=== PATIENT | male | born 1955 | race Caucasian/White ===

== ENCOUNTER 2020-05-19 14:20 | Inpatient (IN) | payer MEDICARE, BC ==
[~2020-05-19] VITALS: Ht 185.4 cm; Wt 80.2 kg
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
[2020-05-19 17:45] VITALS: BP 157/89
[2020-05-19] MEDS ORDERED: MAGNESIUM HYDROXIDE 2,400 MG/30 ML ORAL.SUSP. PO PRN (18:30)
[2020-05-19] MEDS ORDERED: ACETAMINOPHEN 325 MG TABLET PO PRN (18:30)
[2020-05-19] MEDS ORDERED: METHYL SALICYLATE/MENTHOL TOPICAL OINTMENT 57GM TUBE. TP PRN (18:30)
[2020-05-19] MEDS ORDERED: MAG HYDROX/AL HYDROX/SIMETH 30 ML ORAL.SUSP PO PRN (18:30)
[2020-05-19] MEDS ORDERED: QUET100T4 PO (18:36)
[2020-05-19] MEDS ORDERED: DOCU-109 PO (18:36)
[2020-05-19] MEDS ORDERED: LEVE500T56 PO (18:36)
[2020-05-19] MEDS ORDERED: CARB1TAB22 PO (18:36)
[2020-05-19] MEDS ORDERED: PRAM0.255 PO (18:36)
[2020-05-19] MEDS ORDERED: MIDO5TAB4 PO (18:36)
--- NOTE | 2020-05-19 20:56 | PDOC ---
Exam Note: Jason Note: Please also refer to the separate dictated note~for this date of service dictated separately.~Patient seen individually. Discussed the patient with Nursing staff reviewed the chart.~Reviewed interim history and current functioning. Reviewed vital signs,~Labs/ Radiology~and current medications noted below. Continue current treatment with the changes noted in the dictated addendum note Assessment: Vital Signs/I&O: Vital Signs Date Time Temp Pulse Resp B/P (MAP) Pulse Ox O2 Delivery O2 Flow Rate FiO2 05/19/20 17:45 98.0 85 18 157/89 (111) 98 Current Medications: Meds: Current Medications Medications (Trade) Dose Ordered Sig/Rik Route PRN Reason Start Time Stop Time Status Last Admin Dose Admin Acetaminophen (Tylenol) 650 mg PRN Q6HRS PRN PO MILD PAIN / TEMP > 100.3'F 05/19/20 18:30 Multi-Ingredient Ointment (Analgesic [place]) 1 king PRN QID PRN TP MUSCLE PAIN 05/19/20 18:30 Al Hydroxide/Mg Hydroxide (Mylanta Plus Xs) 15 ml PRN AFTMEALHC PRN PO DYSPEPSIA 05/19/20 18:30 Magnesium Hydroxide (Milk Of Magnesia) 2,400 mg PRN QHS PRN PO CONSTIPATION 05/19/20 18:30 Carbidopa/Levodopa (Sinemet 25/100) 4 tab TID PO 05/19/20 21:00 Docusate Sodium (Colace) 100 mg BID PO 05/19/20 21:00 Levetiracetam (Keppra) 500 mg BID PO 05/19/20 21:00 Midodrine (Proamatine) 5 mg [id number] PO 05/20/20 07:00 Pramipexole Dihydrochloride (miraPEX) 0.125 mg QHS PO 05/19/20 21:00 Quetiapine Fumarate (SEROquel) 100 mg QHS PO 05/19/20 21:00 I have reviewed the current psychotropics carefully including drug interactions. Risk benefit ratio favors no change other than as noted in my dictated progress note. Diagnosis: Problems: (1) Psychotic disorder HAYLEY GUZMAN MD May 19, 2020 20:56
[2020-05-19] MEDS ORDERED: PRAMIPEXOLE 0.25 MG TABLET. PO SCH (21:00)
[2020-05-19] MEDS: CARBIDOPA/LEVODOPA 25/100MG TABLET PO SCH (21:24)
[2020-05-19] MEDS: QUEtiapine 100 MG TABLET. PO SCH (21:24)
[2020-05-19] MEDS: levETIRAcetam 500 MG TABLET PO SCH (21:24)
[2020-05-19] MEDS: DOCUSATE SODIUM 100 MG CAPSULE PO SCH (21:24)
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
[2020-05-20] MEDS: traZODone 50 MG TABLET. PO PRN (01:03)
[2020-05-20 01:21] LABS: COLOR,URINE AMBER
[2020-05-20 01:22] LABS: BACTERIA,URINE 0 /HPF (0-FEW); BILIRUBIN,URINE SMALL (NEG); CLARITY,URINE CLEAR; GLUCOSE,URINE NEG (NEG); NITRITE,URINE NEG (NEG); RBC,URINE OCC /HPF (0-2); SQUAMOUS EPITHELIAL CELL,UR OCC /LPF; WBC,URINE OCC /HPF (0-4)
--- NOTE | 2020-05-20 02:55 | NUR ---
Nursing Note The patient was located in his room for his assessment and medication pass. The patient was able to take his medication whole and was pleasant during interactions. The patient was able to answer name and year during his assessment. The patient was restless @HS and and order was given by Dr. Garnica for Trazodone 50mg PRN may repeat x1. The patient received PRN Trazodone per PRN order.
--- NOTE | 2020-05-20 05:45 | EKG ---
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
[2020-05-20] MEDS: MIDODRINE 5 MG TABLET PO SCH ×3 (06:03→18:08)
[2020-05-20 06:24] VITALS: BP 147/79
[2020-05-20 06:52] LABS: BASO # 0.1 x10^3/uL (0.0-0.2); BASO % 1 % (0-3); EOS % 1 % (0-3); HEMATOCRIT 44.5 % (39.0-53.0); HEMOGLOBIN 15.3 g/dL (13.0-17.5); LYMPH # 1.4 x10^3/uL (1.0-4.8); LYMPH % 17 % (24-48); MEAN CORPUSCULAR HEMOGLOBIN 30 pg (25-35); MEAN CORPUSCULAR HGB CONC 34 g/dL (31-37); MEAN CORPUSCULAR VOLUME 87 fL (79-100); MONO % 12 % (0-9); NEUT # 5.9 x10^3uL (1.8-7.7); NEUT % 71 % (31-73); PLATELET COUNT 283 x10^3/uL (140-400); RED BLOOD COUNT 5.12 x10^6/uL (4.30-5.70); RED CELL DISTRIBUTION WIDTH 13.6 % (11.5-14.5); WHITE BLOOD COUNT 8.3 x10^3/uL (4.0-11.0)
[2020-05-20 07:04] LABS: ALBUMIN 3.8 g/dL (3.4-5.0); ALBUMIN/GLOBULIN RATIO 1.1 (1.0-1.7); CALCIUM 9.2 mg/dL (8.5-10.1); CREATININE 0.9 mg/dL (0.7-1.3); GFR 84.7; MAGNESIUM 2.2 mg/dL (1.8-2.4); POTASSIUM 3.7 mmol/L (3.5-5.1); TOTAL BILIRUBIN 0.7 mg/dL (0.2-1.0); TOTAL PROTEIN 7.3 g/dL (6.4-8.2)
[2020-05-20] MEDS: CARBIDOPA/LEVODOPA 25/100MG TABLET PO SCH ×2 (08:31→13:06)
[2020-05-20] MEDS: levETIRAcetam 500 MG TABLET PO SCH ×2 (08:31→19:59)
[2020-05-20] MEDS: DOCUSATE SODIUM 100 MG CAPSULE PO SCH ×2 (08:31→19:59)
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
[2020-05-20 14:25] LABS: THYROID STIM HORMONE (TSH) 1.73 uIU/mL (0.358-3.740)
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
[2020-05-20 15:42] VITALS: BP 111/66
[2020-05-20] MEDS ORDERED: CHOLECALCIFEROL (VITAMIN D3) 50,000 UNIT CAPSULE PO SCH ×2 (17:15→21:00)
--- NOTE | 2020-05-20 17:48 | NUR ---
Patient alert to self, compliant, cooperative, flat affect, slow to respond but pleasantly confused. Pt was wandering halls and into other peers rooms. pt had one encounter that was not redirectable and required a PRN zydis. Pt has been cooperative since.
[2020-05-20] MEDS: QUEtiapine 100 MG TABLET. PO SCH (20:00)
[2020-05-20] MEDS ORDERED: CARBIDOPA/LEVODOPA 25/100MG TABLET PO SCH (21:00)
[2020-05-20] MEDS ORDERED: PRAMIPEXOLE 0.25 MG TABLET. PO SCH ×2 (21:00)
--- NOTE | 2020-05-20 21:12 | PDOC ---
Exam Note: Jason Note: Please also refer to the separate dictated note~for this date of service dictated separately.~Patient seen individually. Discussed the patient with Nursing staff reviewed the chart.~Reviewed interim history and current functioning. Reviewed vital signs,~Labs/ Radiology~and current medications noted below. Continue current treatment with the changes noted in the dictated addendum note Assessment: Vital Signs/I&O: Vital Signs Date Time Temp Pulse Resp B/P (MAP) Pulse Ox O2 Delivery O2 Flow Rate FiO2 05/20/20 18:08 51 111/66 05/20/20 15:42 97.4 16 98 05/20/20 06:24 Room Air I & O 05/19/20 05/19/20 05/20/20 15:00 23:00 07:00 Intake Total 240 ml 240 ml Balance 240 ml 240 ml Labs: Laboratory Tests Test 05/20/20 00:54 05/20/20 06:40 Urine Collection Type Unknown Urine Color [place] Urine Clarity Clear Urine pH 6.0 Urine Specific Chama >=1.030 Urine Protein 30 mg/dl (NEG-TRACE) Urine Glucose (UA) Neg mg/dL (NEG) Urine Ketones (Stick) 40 mg/dL (NEG) Urine Blood Neg (NEG) Urine Nitrite Neg (NEG) Urine Bilirubin Small (NEG) Urine Urobilinogen Dipstick 1.0 mg/dL (0.2 mg/dL) Urine Leukocyte Esterase Neg (NEG) Urine RBC Occ /HPF (0-2) Urine WBC Occ /HPF (0-4) Urine Squamous Epithelial Cells Occ /LPF Urine Bacteria 0 /HPF (0-FEW) White Blood Count 8.3 x10^3/uL (4.0-11.0) Red Blood Count 5.12 x10^6/uL (4.30-5.70) Hemoglobin 15.3 g/dL (13.0-17.5) Hematocrit 44.5 % (39.0-53.0) Mean Corpuscular Volume 87 fL (79-100) Mean Corpuscular Hemoglobin 30 pg (25-35) Mean Corpuscular Hemoglobin Concent 34 g/dL (31-37) Red Cell Distribution Width 13.6 % (11.5-14.5) Platelet Count 283 x10^3/uL (140-400) Neutrophils (%) (Auto) 71 % (31-73) Lymphocytes (%) (Auto) 17 % (24-48) L Monocytes (%) (Auto) 12 % (0-9) H Eosinophils (%) (Auto) 1 % (0-3) Basophils (%) (Auto) 1 % (0-3) Neutrophils # (Auto) 5.9 x10^3uL (1.8-7.7) Lymphocytes # (Auto) 1.4 x10^3/uL (1.0-4.8) Monocytes # (Auto) 1.0 x10^3/uL (0.0-1.1) Eosinophils # (Auto) 0.0 x10^3/uL (0.0-0.7) Basophils # (Auto) 0.1 x10^3/uL (0.0-0.2) D-Dimer (Sera) 0.28 mg/L (0.00-0.50) Sodium Level 141 mmol/L (136-145) Potassium Level 3.7 mmol/L (3.5-5.1) Chloride Level 105 mmol/L (98-107) Carbon Dioxide Level 28 mmol/L (21-32) Anion Gap 8 (6-14) Blood Urea Nitrogen 10 mg/dL (8-26) Creatinine 0.9 mg/dL (0.7-1.3) Estimated GFR (Cockcroft-Gault) 84.7 BUN/Creatinine Ratio 11 (6-20) Glucose Level 93 mg/dL (70-99) Calcium Level 9.2 mg/dL (8.5-10.1) Magnesium Level 2.2 mg/dL (1.8-2.4) Iron Level 95 ug/dL (65-175) Total Iron Binding Capacity 259 ug/dL (250-450) Iron Saturation 37 % (15-34) H Total Bilirubin 0.7 mg/dL (0.2-1.0) Aspartate Amino Transferase (AST) 14 U/L (15-37) L Alanine Aminotransferase (ALT) 14 U/L (16-63) L Alkaline Phosphatase 92 U/L (46-116) Total Protein 7.3 g/dL (6.4-8.2) Albumin 3.8 g/dL (3.4-5.0) Albumin/Globulin Ratio 1.1 (1.0-1.7) Triglycerides Level 61 mg/dL (0-150) Cholesterol Level 172 mg/dL (0-200) LDL Cholesterol, Calculated 112 mg/dL (0-100) H VLDL Cholesterol, Calculated 12 mg/dL (0-40) Non-HDL Cholesterol Calculated 124 mg/dL (0-129) HDL Cholesterol 48 mg/dL (40-60) Cholesterol/HDL Ratio 3.0 Vitamin B12 Level 267 pg/mL (247-911) 25-Hydroxy Vitamin D Total 16.5 ng/mL (30-100) L Thyroid Stimulating Hormone (TSH) 1.730 uIU/mL (0.358-3.740) Thyroxine (T4) 8.0 ug/dL (4.5-12.0) Total Triiodothyronine (TT3) 122 ng/dL (71-180) Treponema pallidum Antibody Nonreactive (Nonreactive) Current Medications: Meds: Laboratory Tests Test 05/20/20 00:54 05/20/20 06:40 Urine Collection Type Unknown Urine Color Germania Urine Clarity Clear Urine pH 6.0 Urine Specific Chama >=1.030 Urine Protein 30 mg/dl Urine Glucose (UA) Neg mg/dL Urine Ketones (Stick) 40 mg/dL Urine Blood Neg Urine Nitrite Neg Urine Bilirubin Small Urine Urobilinogen Dipstick 1.0 mg/dL Urine Leukocyte Esterase Neg Urine RBC Occ /HPF Urine WBC Occ /HPF Urine Squamous Epithelial Cells Occ /LPF Urine Bacteria 0 /HPF White Blood Count 8.3 x10^3/uL Red Blood Count 5.12 x10^6/uL Hemoglobin 15.3 g/dL Hematocrit 44.5 % Mean Corpuscular Volume 87 fL Mean Corpuscular Hemoglobin 30 pg Mean Corpuscular Hemoglobin Concent 34 g/dL Red Cell Distribution Width 13.6 % Platelet Count 283 x10^3/uL Neutrophils (%) (Auto) 71 % Lymphocytes (%) (Auto) 17 % Monocytes (%) (Auto) 12 % Eosinophils (%) (Auto) 1 % Basophils (%) (Auto) 1 % Neutrophils # (Auto) 5.9 x10^3uL Lymphocytes # (Auto) 1.4 x10^3/uL Monocytes # (Auto) 1.0 x10^3/uL Eosinophils # (Auto) 0.0 x10^3/uL Basophils # (Auto) 0.1 x10^3/uL D-Dimer (Sera) 0.28 mg/L Sodium Level 141 mmol/L Potassium Level 3.7 mmol/L Chloride Level 105 mmol/L Carbon Dioxide Level 28 mmol/L Anion Gap 8 Blood Urea Nitrogen 10 mg/dL Creatinine 0.9 mg/dL Estimated GFR (Cockcroft-Gault) 84.7 BUN/Creatinine Ratio 11 Glucose Level 93 mg/dL Calcium Level 9.2 mg/dL Magnesium Level 2.2 mg/dL Iron Level 95 ug/dL Total Iron Binding Capacity 259 ug/dL Iron Saturation 37 % Total Bilirubin 0.7 mg/dL Aspartate Amino Transf (AST/SGOT) 14 U/L Alanine Aminotransferase (ALT/SGPT) 14 U/L Alkaline Phosphatase 92 U/L Total Protein 7.3 g/dL Albumin 3.8 g/dL Albumin/Globulin Ratio 1.1 Triglycerides Level 61 mg/dL Cholesterol Level 172 mg/dL LDL Cholesterol, Calculated 112 mg/dL VLDL Cholesterol, Calculated 12 mg/dL Non-HDL Cholesterol Calculated 124 mg/dL HDL Cholesterol 48 mg/dL Cholesterol/HDL Ratio 3.0 Vitamin B12 Level 267 pg/mL 25-Hydroxy Vitamin D Total 16.5 ng/mL Thyroid Stimulating Hormone (TSH) 1.730 uIU/mL Thyroxine (T4) 8.0 ug/dL Total Triiodothyronine 122 ng/dL Treponema pallidum Antibody Nonreactive Current Medications Medications (Trade) Dose Ordered Sig/Rik Route PRN Reason Start Time Stop Time Status Last Admin Dose Admin Acetaminophen (Tylenol) 650 mg PRN Q6HRS PRN PO MILD PAIN / TEMP > 100.3'F 05/19/20 18:30 Multi-Ingredient Ointment (Analgesic [place]) 1 king PRN QID PRN TP MUSCLE PAIN 05/19/20 18:30 Al Hydroxide/Mg Hydroxide (Mylanta Plus Xs) 15 ml PRN AFTMEALHC PRN PO DYSPEPSIA 05/19/20 18:30 Magnesium Hydroxide (Milk Of Magnesia) 2,400 mg PRN QHS PRN PO CONSTIPATION 05/19/20 18:30 Carbidopa/Levodopa (Sinemet 25/100) 4 tab TID PO 05/19/20 21:00 05/20/20 18:53 DC 05/20/20 13:06 Docusate Sodium (Colace) 100 mg BID PO 05/19/20 21:00 05/20/20 19:59 Levetiracetam (Keppra) 500 mg BID PO 05/19/20 21:00 05/20/20 19:59 Midodrine (Proamatine) 5 mg [id number] PO 05/20/20 07:00 05/20/20 18:08 Pramipexole Dihydrochloride (miraPEX) 0.125 mg QHS PO 05/19/20 21:00 05/20/20 18:53 DC 05/19/20 21:24 Quetiapine Fumarate (SEROquel) 100 mg QHS PO 05/19/20 21:00 05/20/20 20:00 Olanzapine (ZyPREXA ZYDIS) 2.5 mg PRN Q2HR PRN PO PSYCHOSIS 05/20/20 01:00 05/20/20 15:15 Trazodone HCl (Desyrel) 50 mg PRN QHS PRN PO INSOMNIA 05/20/20 01:00 05/20/20 01:03 Vitamin D (Vitamin D3) 50,000 unit WEEKLY PO 05/20/20 17:15 05/20/20 17:26 DC Vitamin D (Vitamin D3) 50,000 unit WEEKLY PO 05/20/20 21:00 05/20/20 20:05 Pramipexole Dihydrochloride (miraPEX) 0.25 mg [id number] PO 05/20/20 21:00 05/20/20 18:56 DC Carbidopa/Levodopa (Sinemet 25/100) 2 tab TID PO 05/20/20 21:00 05/20/20 19:49 Pramipexole Dihydrochloride (miraPEX) 0.25 mg BID PO 05/20/20 21:00 05/20/20 20:00 Current Medications Medications (Trade) Dose Ordered Sig/Rik Route PRN Reason Start Time Stop Time Status Last Admin Dose Admin Midodrine (Proamatine) 5 mg [id number] PO 05/20/20 07:00 05/20/20 18:08 Olanzapine (ZyPREXA ZYDIS) 2.5 mg PRN Q2HR PRN PO PSYCHOSIS 05/20/20 01:00 05/20/20 15:15 Trazodone HCl (Desyrel) 50 mg PRN QHS PRN PO INSOMNIA 05/20/20 01:00 05/20/20 01:03 Vitamin D (Vitamin D3) 50,000 unit WEEKLY PO 05/20/20 21:00 05/20/20 20:05 Carbidopa/Levodopa (Sinemet 25/100) 2 tab TID PO 05/20/20 21:00 05/20/20 19:49 Pramipexole Dihydrochloride (miraPEX) 0.25 mg BID PO 05/20/20 21:00 05/20/20 20:00 I have reviewed the current psychotropics carefully including drug interactions. Risk benefit ratio favors no change other than as noted in my dictated progress note. 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
[2020-05-20] MEDS ORDERED: ACET325T9 PO (23:37)
[2020-05-20] MEDS ORDERED: METH28OI2 TP (23:37)
[2020-05-20] MEDS ORDERED: TRAZ-120 PO (23:38)
[2020-05-20] MEDS ORDERED: OLAN5TAB99 PO (23:42)
[2020-05-20] MEDS ORDERED: MAGN400O7 PO (23:49)
[2020-05-20] MEDS ORDERED: MAG30ORA2 PO (23:52)
[2020-05-20] MEDS ORDERED: CHOL500021 PO (23:54)
[2020-05-21 00:11] LABS: HEMOGLOBIN A1C 5.7 % (4.8-5.6)
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
[2020-05-21] MEDS: traZODone 50 MG TABLET. PO PRN (01:43)
[2020-05-21] MEDS: MIDODRINE 5 MG TABLET PO SCH (05:44)
[2020-05-21 06:20] VITALS: BP 132/78
--- NOTE | 2020-05-21 06:43 | NUR ---
Transition Record was faxed to follow-up provider with the following elements: Reason for admission, procedures, tests, principal diagnosis, pending studies, patient instructions, 13/11 contact information for unit, phone number to obtain pending test results, plan for follow-up care, physician follow-up, advanced directive information, and medication list with dose, duration and instructions. This information was included in the following documents: History and physical, lab results, study results, progress notes, social work planning form, DC instruction form, patient visit summary, and medication reconciliation form. Date & time record faxed: [phone] Record faxed to: [facility] Record discussed with/ [facility]
--- NOTE | 2020-05-21 07:43 | PDOC ---
Exam Note: Jason Note: This note is a late entry for 05/20/2020 covers elements not covered in my initial note. Subjective: The patient was seen face to face in the morning of 05/20/2020 for a treatment team meeting with Karine Brooks and Sandra (certified social workers in health care), Mandy Barnes, activity therapy and Lynsey BLANC. Discussed with nursing staff, reviewed the chart. The patient just slept 2-1/2 hours previous night. The patients Ema joined the treatment team meeting. We had a lengthy discussion of his history of Parkinsons and recent worsening symptoms and adjustments in his anti-parkinsonian medications with some correlation with worsening psychosis. All of his treatments were in [place]. At treatment team meeting also discussed the patients progress and rather dangerous psychotic behaviors at home when he threatened to hit his and then walked, oblivious of his surroundings. Review of Systems: No CV, , pulmonary, eye, ENT system symptoms on review. Reliability poor. Mental Status Exam: The patient is oriented to himself. I met with him individually in the evening. Insight and judgment, recent and remote memory, attention and concentration, fund of knowledge is poor consistent with his diagnosis. He gets more confused in the evening. He has a parkinsonian facial expression paucity of movements again consistent with Parkinsons. Laboratory Data: Reviewed. Impression: Major neurocognitive disorder Alzheimer vascular with delusion, depression. Anxiety disorder unspecified. Impulse control disorder unspecified. Lewy body dementia with behavioral disturbance. Plan: Continue current psychotropics. He does have a family history of bipolar disorder in his sister and father. We will adjust psychotropics as clinically indicated. Consider Clozaril or adjustment of Seroquel. Consider SSRIs. We will make decisions post-baseline assessment. Assessment: Vital Signs/I&O: Vital Signs Date Time Temp Pulse Resp B/P (MAP) Pulse Ox O2 Delivery O2 Flow Rate FiO2 05/21/20 06:20 98.1 108 20 132/78 (96) 98 Room Air I & O 05/20/20 05/20/20 05/21/20 15:00 23:00 07:00 Intake Total 720 ml 360 ml Balance 720 ml 360 ml Current Medications: Meds: Current Medications Medications (Trade) Dose Ordered Sig/Rik Route PRN Reason Start Time Stop Time Status Last Admin Dose Admin Acetaminophen (Tylenol) 650 mg PRN Q6HRS PRN PO MILD PAIN / TEMP > 100.3'F 05/19/20 18:30 05/21/20 06:58 DC Multi-Ingredient Ointment (Analgesic [place]) 1 king PRN QID PRN TP MUSCLE PAIN 05/19/20 18:30 05/21/20 06:58 DC Al Hydroxide/Mg Hydroxide (Mylanta Plus Xs) 15 ml PRN AFTMEALHC PRN PO DYSPEPSIA 05/19/20 18:30 05/21/20 06:58 DC Magnesium Hydroxide (Milk Of Magnesia) 2,400 mg PRN QHS PRN PO CONSTIPATION 05/19/20 18:30 05/21/20 06:58 DC Carbidopa/Levodopa (Sinemet 25/100) 4 tab TID PO 05/19/20 21:00 05/20/20 18:53 DC 05/20/20 13:06 Docusate Sodium (Colace) 100 mg BID PO 05/19/20 21:00 05/21/20 06:58 DC 05/20/20 19:59 Levetiracetam (Keppra) 500 mg BID PO 05/19/20 21:00 05/21/20 06:58 DC 05/20/20 19:59 Midodrine (Proamatine) 5 mg [id number] PO 05/20/20 07:00 05/21/20 06:58 DC 05/21/20 05:44 Pramipexole Dihydrochloride (miraPEX) 0.125 mg QHS PO 05/19/20 21:00 05/20/20 18:53 DC 05/19/20 21:24 Quetiapine Fumarate (SEROquel) 100 mg QHS PO 05/19/20 21:00 05/21/20 06:58 DC 05/20/20 20:00 Olanzapine (ZyPREXA ZYDIS) 2.5 mg PRN Q2HR PRN PO PSYCHOSIS 05/20/20 01:00 05/21/20 06:58 DC 05/21/20 03:15 Trazodone HCl (Desyrel) 50 mg PRN QHS PRN PO INSOMNIA 05/20/20 01:00 05/21/20 06:58 DC 05/21/20 01:43 Vitamin D (Vitamin D3) 50,000 unit WEEKLY PO 05/20/20 17:15 05/20/20 17:26 DC Vitamin D (Vitamin D3) 50,000 unit WEEKLY PO 05/20/20 21:00 05/21/20 06:58 DC 05/20/20 20:05 Pramipexole Dihydrochloride (miraPEX) 0.25 mg [id number] PO 05/20/20 21:00 05/20/20 18:56 DC Carbidopa/Levodopa (Sinemet 25/100) 2 tab TID PO 05/20/20 21:00 05/21/20 06:58 DC 05/20/20 19:49 Pramipexole Dihydrochloride (miraPEX) 0.25 mg BID PO 05/20/20 21:00 05/21/20 06:58 DC 05/20/20 20:00 Current Medications Medications (Trade) Dose Ordered Sig/Rik Route PRN Reason Start Time Stop Time Status Last Admin Dose Admin Vitamin D (Vitamin D3) 50,000 unit WEEKLY PO 05/20/20 21:00 05/21/20 06:58 DC 05/20/20 20:05 Carbidopa/Levodopa (Sinemet 25/100) 2 tab TID PO 05/20/20 21:00 05/21/20 06:58 DC 05/20/20 19:49 Pramipexole Dihydrochloride (miraPEX) 0.25 mg BID PO 05/20/20 21:00 05/21/20 06:58 DC 05/20/20 20:00 I have reviewed the current psychotropics carefully including drug interactions. Risk benefit ratio favors no change other than as noted in my dictated progress note. Diagnosis: Problems: (1) Psychotic disorder (2) Impulse control disorder, unspecified (3) Anxiety disorder, unspecified (4) Major neurocognitive disorder due to Parkinson's disease with behavioral disturbance HAYLEY GUZMAN MD May 21, 2020 07:43
--- NOTE | 2020-05-21 21:15 | PDOC ---
Exam Note: Jason Note: Please also refer to the separate dictated note~for this date of service dictated separately.~Patient seen individually. Discussed the patient with Nursing staff reviewed the chart.~Reviewed interim history and current functioning. Reviewed vital signs,~Labs/ Radiology~and current medications noted below. Continue current treatment with the changes noted in the dictated addendum note Assessment: Vital Signs/I&O: Vital Signs Date Time Temp Pulse Resp B/P (MAP) Pulse Ox O2 Delivery O2 Flow Rate FiO2 05/21/20 06:20 98.1 108 20 132/78 (96) 98 Room Air I & O 05/20/20 05/20/20 05/21/20 15:00 23:00 07:00 Intake Total 720 ml 360 ml Balance 720 ml 360 ml Current Medications: Meds: Current Medications Medications (Trade) Dose Ordered Sig/Rik Route PRN Reason Start Time Stop Time Status Last Admin Dose Admin Acetaminophen (Tylenol) 650 mg PRN Q6HRS PRN PO MILD PAIN / TEMP > 100.3'F 05/19/20 18:30 05/21/20 06:58 DC Multi-Ingredient Ointment (Analgesic [place]) 1 king PRN QID PRN TP MUSCLE PAIN 05/19/20 18:30 05/21/20 06:58 DC Al Hydroxide/Mg Hydroxide (Mylanta Plus Xs) 15 ml PRN AFTMEALHC PRN PO DYSPEPSIA 05/19/20 18:30 05/21/20 06:58 DC Magnesium Hydroxide (Milk Of Magnesia) 2,400 mg PRN QHS PRN PO CONSTIPATION 05/19/20 18:30 05/21/20 06:58 DC Carbidopa/Levodopa (Sinemet 25/100) 4 tab TID PO 05/19/20 21:00 05/20/20 18:53 DC 05/20/20 13:06 Docusate Sodium (Colace) 100 mg BID PO 05/19/20 21:00 05/21/20 06:58 DC 05/20/20 19:59 Levetiracetam (Keppra) 500 mg BID PO 05/19/20 21:00 05/21/20 06:58 DC 05/20/20 19:59 Midodrine (Proamatine) 5 mg [id number] PO 05/20/20 07:00 05/21/20 06:58 DC 05/21/20 05:44 Pramipexole Dihydrochloride (miraPEX) 0.125 mg QHS PO 05/19/20 21:00 05/20/20 18:53 DC 05/19/20 21:24 Quetiapine Fumarate (SEROquel) 100 mg QHS PO 05/19/20 21:00 05/21/20 06:58 DC 05/20/20 20:00 Olanzapine (ZyPREXA ZYDIS) 2.5 mg PRN Q2HR PRN PO PSYCHOSIS 05/20/20 01:00 05/21/20 06:58 DC 05/21/20 03:15 Trazodone HCl (Desyrel) 50 mg PRN QHS PRN PO INSOMNIA 05/20/20 01:00 05/21/20 06:58 DC 05/21/20 01:43 Vitamin D (Vitamin D3) 50,000 unit WEEKLY PO 05/20/20 17:15 05/20/20 17:26 DC Vitamin D (Vitamin D3) 50,000 unit WEEKLY PO 05/20/20 21:00 05/21/20 06:58 DC 05/20/20 20:05 Pramipexole Dihydrochloride (miraPEX) 0.25 mg [id number] PO 05/20/20 21:00 05/20/20 18:56 DC Carbidopa/Levodopa (Sinemet 25/100) 2 tab TID PO 05/20/20 21:00 05/21/20 06:58 DC 05/20/20 19:49 Pramipexole Dihydrochloride (miraPEX) 0.25 mg BID PO 05/20/20 21:00 05/21/20 06:58 DC 05/20/20 20:00 I have reviewed the current psychotropics carefully including drug interactions. Risk benefit ratio favors no change other than as noted in my dictated progress note. Diagnosis: Problems: (1) Psychotic disorder (2) Impulse control disorder, unspecified (3) Anxiety disorder, unspecified (4) Major neurocognitive disorder due to Parkinson's disease with behavioral di sturbance HAYLEY GUZMAN MD May 21, 2020 21:15
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
--- NOTE | 2020-05-23 22:25 | CONS ---
DATE OF CONSULTATION: 05/20/2020 NEUROLOGY CONSULTATION REFERRING PHYSICIAN: Jose Garnica MD REASON FOR CONSULTATION: Dementia and Parkinson's disease. HISTORY OF PRESENT ILLNESS: This is a 65-year-old right-handed male who was admitted to Ger[facility] Behavior Unit on 05/19/2020 on account of increased delusion, hallucination and agitation. The patient was evaluated in the Emergency Room at [facility] because of the worsening of the above symptoms. He was transferred from [facility]. Neuro consult was requested because of increasing symptoms of Parkinson's disease and worsening of dementia. The patient denies headaches, visual disturbances, nausea, vomiting, frequent falls, but he complains of intermittent tremor and stiffness of the lower extremities. PAST MEDICAL HISTORY: Significant for Parkinson's disease diagnosed several years ago, coronary artery disease, seizure disorder, and possible syncope. PAST SURGICAL HISTORY: Positive for pacemaker placement and appendectomy. FAMILY HISTORY: Noncontributory. SOCIAL HISTORY: The patient is . He lives with his at home. He denies smoking, alcohol drinking, or illicit drug use. CURRENT HOME MEDICATIONS: Midodrine 5 mg 3 times daily, levetiracetam 500 mg twice daily, Seroquel 100 mg at bedtime, carbidopa/levodopa 25/100 four tablets 3 times daily, Mirapex 0.125 mg at bedtime, Colace 100 mg twice daily. ALLERGIES: No known drug allergies. PHYSICAL EXAMINATION: GENERAL: A well-developed, well-nourished male, not in acute distress. VITAL SIGNS: Blood pressure 111/66, respiratory rate 16, pulse is 51, temperature 97.4, oxygen saturation 98% on room air. HEENT: Normocephalic, atraumatic, otherwise unremarkable. NECK: Supple. Negative for carotid bruit, lymphadenopathy or thyromegaly. LUNGS: Clear to A and P. CARDIOVASCULAR: Regular rate and rhythm, normal S1, S2. There is no S3, S4 or murmur. ABDOMEN: Soft. Bowel sounds positive. EXTREMITIES: Negative for cyanosis, clubbing, or pedal edema. NEUROLOGIC: Mental status: The patient is alert and oriented to himself. He is disoriented to time, place and person. Speech is somewhat fluent. There is no language dysfunction. Memory, judgment, and abstracting thinking are poor. The patient denies hallucination or delusion. CRANIAL NERVES: Visual thompson are full. The pupils are reactive to light and accommodation. Extraocular movements are intact. There is no nystagmus. There is no facial, motor, or sensory deficit. The hearing is intact bilaterally. The palate is elevated symmetrically. Sternocleidomastoid muscles are powerful bilaterally. The patient shrugs his shoulders symmetrically and protrudes his tongue in the midline without fasciculation or atrophy. MOTOR EXAMINATION: No focal muscle bulk was seen. The tone is increased in the lower extremities. Strength is 5/5 throughout. SENSORY EXAMINATION: Revealed normal pinprick, light touch, vibratory and position senses. Deep tendon reflexes were symmetric and active without pathologic responses. GAIT: The stance is steady. The patient walked, but he does not swing his arms bilaterally. The coordination is normal. LABORATORY DATA: CBC revealed white blood cells of 8.3 thousand, hemoglobin 15.3, hematocrit 44.5, platelet count 283,000. Chemistry revealed sodium is 141, potassium 3.7, chloride 105, CO2 of 28, BUN 10, creatinine 0.9, glucose 93, calcium 9.2, magnesium 2.2. Liver enzymes are normal. B12 is low at 267 and vitamin D3 is low at 15.3. Thyroid profile is normal. IMPRESSION: Longstanding history of Parkinson's disease with mild symptoms including intermittent mild tremor of the upper extremity and slightly increased rigidity in the lower extremities. The patient is on high dose of carbidopa/levodopa and low dose of Mirapex at 0.125. RECOMMENDATIONS: 1. We will adjust his carbidopa/levodopa to 25/100 two tablets t.i.d. 2. Increase Mirapex to 0.5 mg b.i.d. 3. Continue with current medical and psychiatric care. M Enrike JONES MD DR: TAMRA/stevo JOB#: [id number] / [id number]
--- NOTE | 2020-05-23 23:07 | PN ---
DATE: 05/21/2020 SUBJECTIVE: The patient denies any new medical or neurological complaints. He continues to have mild intermittent resting tremor. He denies any falls. OBJECTIVE: GENERAL: Well-developed, well-nourished male, not in acute distress. VITAL SIGNS: Temperature is 98.5, pulse is 72, oxygen saturation 99%, blood pressure 107/76. HEENT: Normocephalic, atraumatic, otherwise unremarkable. NECK: Supple. Negative for carotid bruit, lymphadenopathy or thyromegaly. LUNGS: Clear to A and P. CARDIOVASCULAR: Regular rhythm, normal S1, S2. ABDOMEN: Soft. Bowel sounds positive. EXTREMITIES: Negative for cyanosis, clubbing, pitting edema. NEUROLOGICAL EXAM: Mental Status: The patient is alert and oriented to himself. His judgment and abstract thinking are poor. The patient denies hallucination or delusion. Cranial nerves are intact. No focal motor or sensory deficit. Deep tendon reflexes were symmetric and active without pathology responses. Gait and coordination are normal; however, the patient does not swing his arms while walking. DIAGNOSTICS: Chest x-ray today revealed evidence of possible infiltration in the base of the left lung consistent with atypical pneumonia. The patient today was tested positive for coronavirus. IMPRESSION: 1. COVID-19 pneumonia. 2. Parkinson disease, seizure disorders and dementia, complicated with delusion and hallucination. RECOMMENDATIONS: Continue with current medical and psychiatric care and continue with current dose of carbidopa/levodopa and Mirapex. M Enrike JONES MD DR: TAMRA/stevo JOB#: [id number] / [id number]
== END 2020-05-21 06:58 | disposition short-term general hospital (02) | DRG 56 ==
LOC: GEROPSY 16:08
PROVIDERS: ADMIT Psychiatry & Neurology Psychiatry; ATTEND Psychiatry & Neurology Psychiatry
DX: G20 Parkinson's disease (principal); F02.81 Dementia in other diseases classified elsewhere, unspecified severity, with behavioral disturbance; U07.1 COVID-19; J12.82 Pneumonia due to coronavirus disease 2019; F01.51 Vascular dementia, unspecified severity, with behavioral disturbance; G30.9 Alzheimer's disease, unspecified; I25.10 Atherosclerotic heart disease of native coronary artery without angina pectoris; Z95.0 Presence of cardiac pacemaker; Z79.899 Other long term (current) drug therapy; F41.9 Anxiety disorder, unspecified; F32.9 Major depressive disorder, single episode, unspecified; F63.9 Impulse disorder, unspecified; G40.909 Epilepsy, unspecified, not intractable, without status epilepticus
CPT/HCPCS: 36415; 80053; 80061; 81001; 82306; 82607; 83036; 83540; 83550; 83735; 84436; 84443; 84480; 85025; 85379; 86592; 93005; U0003; 97116; 97530

== ENCOUNTER 2020-05-21 06:18 | Inpatient (IN) | payer MEDICARE, BC ==
[~2020-05-21] VITALS: Ht 185.4 cm; Wt 76.5 kg
[~2020-05-21 06:18] MED LIST: ACET325T9 PO; CARB1TAB22 PO; CHOL500021 PO; DOCU-109 PO; LEVE500T56 PO; MAG30ORA2 PO; MAGN400O7 PO; METH28OI2 TP; MIDO5TAB4 PO; OLAN5TAB99 PO; PRAM0.255 PO; QUET100T4 PO; TRAZ-120 PO
[2020-05-21 08:00] VITALS: BP 126/69
--- NOTE | 2020-05-21 10:03 | NUR ---
PATIENT IS 65 Y O MALE, ADMITTED FROM [facility] WITH COVID RESULT POSITIVE. PATIENT IS AWAKE IN A BED UPON ASSESSMENT, A/O X 1, DENIED PAIN, STATED HE IS NOT FEELING WELL. PATIENT HAS A FEVER AT 100.7, 97% ON RA. PATIENT WAS ORIENTED TO ROOM/BATHROOM. PATIENT IS CURRENTLY CALM AND QUIET UP IN A BED TRYING TO EAT BREAKFAST. WCTM.
[2020-05-21 10:45] VITALS: BP 134/83
[2020-05-21 12:43] LABS: BASO % 1 % (0-3); EOS % 1 % (0-3); HEMATOCRIT 44.6 % (39.0-53.0); HEMOGLOBIN 14.9 g/dL (13.0-17.5); LYMPH % 12 % (24-48); MEAN CORPUSCULAR HEMOGLOBIN 30 pg (25-35); MEAN CORPUSCULAR HGB CONC 33 g/dL (31-37); MEAN CORPUSCULAR VOLUME 89 fL (79-100); MONO # 0.8 x10^3/uL (0.0-1.1); MONO % 10 % (0-9); NEUT # 6.3 x10^3uL (1.8-7.7); NEUT % 77 % (31-73); PLATELET COUNT 267 x10^3/uL (140-400); RED BLOOD COUNT 5.04 x10^6/uL (4.30-5.70); RED CELL DISTRIBUTION WIDTH 13.3 % (11.5-14.5); WHITE BLOOD COUNT 8.1 x10^3/uL (4.0-11.0)
[2020-05-21 12:55] LABS: ALBUMIN 3.5 g/dL (3.4-5.0); ALBUMIN/GLOBULIN RATIO 1.1 (1.0-1.7); CALCIUM 9.1 mg/dL (8.5-10.1); CREATININE 0.8 mg/dL (0.7-1.3); POTASSIUM 3.8 mmol/L (3.5-5.1); TOTAL BILIRUBIN 0.7 mg/dL (0.2-1.0); TOTAL PROTEIN 6.8 g/dL (6.4-8.2)
[2020-05-21] MEDS ORDERED: MAG HYDROX/AL HYDROX/SIMETH 30 ML ORAL.SUSP PO PRN (13:45)
[2020-05-21] MEDS ORDERED: MAGNESIUM HYDROXIDE 2,400 MG/30 ML ORAL.SUSP. PO PRN (13:45)
[2020-05-21] MEDS ORDERED: traZODone 50 MG TABLET. PO PRN (13:45)
[2020-05-21] MEDS ORDERED: METHYL SALICYLATE/MENTHOL TOPICAL OINTMENT 57GM TUBE. TP PRN (14:00)
[2020-05-21 14:43] VITALS: BP 143/73
[2020-05-21 15:12] LABS: BILIRUBIN,URINE NEG (NEG); CLARITY,URINE CLEAR; COLOR,URINE YELLOW; GLUCOSE,URINE NEG (NEG); NITRITE,URINE NEG (NEG); RBC,URINE RARE /HPF (0-2); UROBILINOGEN,URINE 0.2 mg/dL (0.2 mg/dL)
[2020-05-21 15:13] LABS: BACTERIA,URINE 0 /HPF (0-FEW); SQUAMOUS EPITHELIAL CELL,UR OCC /LPF; WBC,URINE RARE /HPF (0-4)
[2020-05-21] MEDS: MIDODRINE 5 MG TABLET PO SCH ×2 (15:23→21:06)
[2020-05-21] MEDS: CARBIDOPA/LEVODOPA 25/100MG TABLET PO SCH ×2 (15:23→21:06)
[2020-05-21] MEDS: ACETAMINOPHEN 325 MG TABLET PO PRN (15:23)
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
--- NOTE | 2020-05-21 15:37 | RAD ---
EXAM: CHEST ONE VIEW. HISTORY: Fever, COVID-19. COMPARISON: None. FINDINGS: A frontal view of the chest is obtained. A left-sided pacemaker has its leads in the right atrium and right ventricle. There is a mild airspace infiltrate in the left base. There is no pneumothorax or pleural effusion. T he heart is not enlarged. IMPRESSION: 1. Mild left basilar infiltrates consistent with atypical pneumonia. Electronically signed by: Madeleine Duron MD (05/21/2020 3:34 PM) [id number]
[2020-05-21] MEDS ORDERED: DEXAMETHASONE SOD PHOS 10 MG/ML VIAL. IV ONE (16:15)
[2020-05-21] MEDS ORDERED: AZITHROMYCIN 250 MG TABLET. PO ONE (16:15)
--- NOTE | 2020-05-21 18:02 | NUR ---
PATIENT EXITED HIS ROOM AND STARTED TO WALK FAST ON THE HALLWAY, THIS RN AND TURNER RN SAW THE PATIENT AND ASKED IF HE NEEDS ANY HELP AND INSTRUCTED PATIENT TO RETURN TO THE PATIENTS ROOM HE SUPPOSE TO BE ON ISOLATION D/T COVID +. PATIENT REFUSED TO FOLLOW DIRECTION AND STARTED TO WALK FASTER TOWARD SNU URENA. SAP INTEGRATION ARCHITECT WAS NOTIFIED CODE TARANGO WAS INITIATED. PATIENT CLOSED THE SNU DOOR AND START RUNNING TOWARD SNU EXIT DOOR. THIS RN AND TURNER RN STARTED TO RUN AFTER THE PATIENT. PATIENT PUSHED THE EXIT DOOR , OPENED AND WENT OUTSIDE, PATIENT STARTED TO RUN TOWARD THE PARKING LOT, FELL AND SCRATCHED HIS BACK (PICTURES TAKEN). BOTH RNS APPROACHED THE PATIENT, PATIENT DENIED ANY PAIN , ONLY BURNING FEELING ON THE BACK. NURSING SAP INTEGRATION ARCHITECT BROUGHT WARM BLANKETS AND SOCKS PATIENT ELOPED BAREFOOT AND SHIRTLESS. SECURITY WAS ON THE SITE TO ASSESS THE SITUATION. PATIENT WAS RETURNED BACK TO THE ROOM 124 SAFELY VIA W/C. DR. CHUNG NOTIFIED , ORDERS OBTAINED, WILL CTM.
[2020-05-21] MEDS: NEOMY/BACITR/POLYMYXIN OINT PACKET. TP SCH ×2 (18:30→21:07)
[2020-05-21 19:51] VITALS: BP 143/89
[2020-05-21] MEDS: QUEtiapine 100 MG TABLET. PO SCH (21:06)
[2020-05-21] MEDS: DOCUSATE SODIUM 100 MG CAPSULE PO SCH (21:06)
[2020-05-21] MEDS: levETIRAcetam 500 MG TABLET PO SCH (21:06)
[2020-05-21] MEDS: PRAMIPEXOLE 0.25 MG TABLET. PO SCH (21:08)
--- NOTE | 2020-05-22 03:56 | NUR ---
Nursing note: Pt slept through much of shift. Pt did ambulate to toilet, but seemed unsteady on his feet. Stand-by or minimal assistance necessary. Pt did not require PRN trazadone or zyprexa at this time. Dressed scrapes on upper back with antibiotic cream per orders and ABD pads. Bed alarm on, bed locked and in low position, nonskid socks applied.
[2020-05-22 06:51] VITALS: BP 134/72
[2020-05-22] MEDS: MIDODRINE 5 MG TABLET PO SCH ×3 (08:48→21:11)
[2020-05-22] MEDS: LACTOBACILLUS RHAMNOSUS GG 1 CAPSULE. PO SCH ×2 (08:48→21:10)
[2020-05-22] MEDS: AZITHROMYCIN 250 MG TABLET. PO SCH (08:48)
[2020-05-22] MEDS: DOCUSATE SODIUM 100 MG CAPSULE PO SCH ×2 (08:48→21:10)
[2020-05-22] MEDS: CARBIDOPA/LEVODOPA 25/100MG TABLET PO SCH ×3 (08:49→21:12)
[2020-05-22] MEDS: levETIRAcetam 500 MG TABLET PO SCH ×2 (08:49→21:11)
[2020-05-22] MEDS: DEXAMETHASONE SOD PHOS 10 MG/ML VIAL. IVP SCH (08:49)
[2020-05-22] MEDS: NEOMY/BACITR/POLYMYXIN OINT PACKET. TP SCH ×2 (08:50→21:12)
[2020-05-22] MEDS: PRAMIPEXOLE 0.25 MG TABLET. PO SCH ×2 (08:52→21:20)
[2020-05-22 10:52] VITALS: BP 107/76
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
[2020-05-22] MEDS: OLANZapine IM 10 MG VIAL. IM PRN (15:00)
--- NOTE | 2020-05-22 15:00 | NUR ---
PT STARTED TO HAVE BEHAVIORS AROUND 1500. PT STARTED TO GET UP FROM BED AND THREATEN STAFF. PT PUSHED GENERAL PRODUCTION WORKER INTO CORNER AND TRIED TO SWING AT HER. PT WAS VERBALLY AGGRESSIVE. 5 MG OF ZYPREXA GIVEN. WILL CTM.
[2020-05-22] MEDS ORDERED: QUEtiapine 25 MG TABLET. PO SCH (15:45)
--- NOTE | 2020-05-22 16:00 | NUR ---
PT CONTINUES TO HAVE BEHAVIORS AND TRIES TO GET OUT OF BED, PT IS A FALL RISK AND ELOPEMENT RISK. CALL TO DR. GUZMAN. ORDERED SEROQUEL 12.5 MG BID. AND X 1 DOSE OF SEROQUEL. WILL CTM.
[2020-05-22] MEDS: QUEtiapine 25 MG TABLET. PO SCH ×2 (18:32→21:11)
[2020-05-22 18:47] VITALS: BP 131/64
[2020-05-22] MEDS: ACETAMINOPHEN 325 MG TABLET PO PRN (21:10)
[2020-05-22] MEDS: QUEtiapine 100 MG TABLET. PO SCH (21:10)
[2020-05-23 07:00] VITALS: BP 159/90
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
[2020-05-23] MEDS: AZITHROMYCIN 250 MG TABLET. PO SCH (07:35)
[2020-05-23] MEDS: CARBIDOPA/LEVODOPA 25/100MG TABLET PO SCH ×3 (07:35→20:31)
[2020-05-23] MEDS: LACTOBACILLUS RHAMNOSUS GG 1 CAPSULE. PO SCH ×2 (07:35→20:31)
[2020-05-23] MEDS: levETIRAcetam 500 MG TABLET PO SCH ×2 (07:35→20:30)
[2020-05-23] MEDS: DEXAMETHASONE SOD PHOS 10 MG/ML VIAL. IVP SCH (07:35)
[2020-05-23] MEDS: QUEtiapine 25 MG TABLET. PO SCH ×3 (07:36→20:32)
[2020-05-23] MEDS: NEOMY/BACITR/POLYMYXIN OINT PACKET. TP SCH ×2 (07:36→20:30)
[2020-05-23] MEDS: DOCUSATE SODIUM 100 MG CAPSULE PO SCH ×2 (07:36→20:30)
[2020-05-23] MEDS: MIDODRINE 5 MG TABLET PO SCH ×3 (07:36→20:30)
[2020-05-23] MEDS: PRAMIPEXOLE 0.25 MG TABLET. PO SCH ×2 (07:37→20:30)
[2020-05-23 08:03] LABS: BASO % 0 % (0-3); EOS % 0 % (0-3); HEMATOCRIT 43.9 % (39.0-53.0); HEMOGLOBIN 14.7 g/dL (13.0-17.5); LYMPH # 1.7 x10^3/uL (1.0-4.8); LYMPH % 12 % (24-48); MEAN CORPUSCULAR HEMOGLOBIN 30 pg (25-35); MEAN CORPUSCULAR HGB CONC 34 g/dL (31-37); MEAN CORPUSCULAR VOLUME 89 fL (79-100); MONO # 1.2 x10^3/uL (0.0-1.1); MONO % 8 % (0-9); NEUT # 11.2 x10^3uL (1.8-7.7); NEUT % 79 % (31-73); PLATELET COUNT 282 x10^3/uL (140-400); RED BLOOD COUNT 4.93 x10^6/uL (4.30-5.70); RED CELL DISTRIBUTION WIDTH 13.9 % (11.5-14.5); WHITE BLOOD COUNT 14.1 x10^3/uL (4.0-11.0)
[2020-05-23 09:48] VITALS: BP 145/93
[2020-05-23] MEDS: ENOXAPARIN 40 MG/0.4 ML SYRINGE. SQ SCH (16:10)
[2020-05-23 17:57] LABS: ALBUMIN 3.7 g/dL (3.4-5.0); ALBUMIN/GLOBULIN RATIO 1.2 (1.0-1.7); CALCIUM 9.2 mg/dL (8.5-10.1); POTASSIUM 3.4 mmol/L (3.5-5.1); TOTAL BILIRUBIN 0.4 mg/dL (0.2-1.0); TOTAL PROTEIN 6.9 g/dL (6.4-8.2)
[2020-05-23] MEDS ORDERED: MIDODRINE 5 MG TABLET PO SCH (18:00)
[2020-05-23 19:22] VITALS: BP 152/99
[2020-05-23] MEDS: traZODone 100 MG TABLET. PO PRN (20:30)
[2020-05-23] MEDS: QUEtiapine 100 MG TABLET. PO SCH (20:30)
--- NOTE | 2020-05-23 21:48 | PDOC ---
Exam Note: Jason Note: This is a late entry for 05/22/2020. Please also refer to the separate dictated note~for this date of service dictated separately. Discussed the patient with Nursing staff reviewed the chart.~Reviewed interim history and current functioning. Reviewed vital signs,~Labs/ Radiology~and current medications noted below. Continue current treatment with the changes noted in the dictated addendum note Assessment: Vital Signs/I&O: Vital Signs Date Time Temp Pulse Resp B/P (MAP) Pulse Ox O2 Delivery O2 Flow Rate FiO2 05/23/20 20:30 78 152/99 05/23/20 19:22 96.8 18 99 Room Air I & O 05/22/20 05/22/20 05/23/20 15:00 23:00 07:00 Intake Total 600 ml 440 ml 150 ml Output Total 100 ml 50 ml Balance 600 ml 340 ml 100 ml Labs: Laboratory Tests Test 05/23/20 06:40 White Blood Count 14.1 x10^3/uL (4.0-11.0) H Red Blood Count 4.93 x10^6/uL (4.30-5.70) Hemoglobin 14.7 g/dL (13.0-17.5) Hematocrit 43.9 % (39.0-53.0) Mean Corpuscular Volume 89 fL (79-100) Mean Corpuscular Hemoglobin 30 pg (25-35) Mean Corpuscular Hemoglobin Concent 34 g/dL (31-37) Red Cell Distribution Width 13.9 % (11.5-14.5) Platelet Count 282 x10^3/uL (140-400) Neutrophils (%) (Auto) 79 % (31-73) H Lymphocytes (%) (Auto) 12 % (24-48) L Monocytes (%) (Auto) 8 % (0-9) Eosinophils (%) (Auto) 0 % (0-3) Basophils (%) (Auto) 0 % (0-3) Neutrophils # (Auto) 11.2 x10^3uL (1.8-7.7) H Lymphocytes # (Auto) 1.7 x10^3/uL (1.0-4.8) Monocytes # (Auto) 1.2 x10^3/uL (0.0-1.1) H Eosinophils # (Auto) 0.0 x10^3/uL (0.0-0.7) Basophils # (Auto) 0.0 x10^3/uL (0.0-0.2) D-Dimer (Sera) 0.67 mg/L (0.00-0.50) H Sodium Level 140 mmol/L (136-145) Potassium Level 3.4 mmol/L (3.5-5.1) L Chloride Level 104 mmol/L (98-107) Carbon Dioxide Level 25 mmol/L (21-32) Anion Gap 11 (6-14) Blood Urea Nitrogen 15 mg/dL (8-26) Creatinine 1.0 mg/dL (0.7-1.3) Estimated GFR (Cockcroft-Gault) 75.0 BUN/Creatinine Ratio 15 (6-20) Glucose Level 77 mg/dL (70-99) Calcium Level 9.2 mg/dL (8.5-10.1) Total Bilirubin 0.4 mg/dL (0.2-1.0) Aspartate Amino Transferase (AST) 20 U/L (15-37) Alanine Aminotransferase (ALT) 15 U/L (16-63) L Alkaline Phosphatase 92 U/L (46-116) Total Protein 6.9 g/dL (6.4-8.2) Albumin 3.7 g/dL (3.4-5.0) Albumin/Globulin Ratio 1.2 (1.0-1.7) Current Medications: Meds: Laboratory Tests Test 05/23/20 06:40 White Blood Count 14.1 x10^3/uL Red Blood Count 4.93 x10^6/uL Hemoglobin 14.7 g/dL Hematocrit 43.9 % Mean Corpuscular Volume 89 fL Mean Corpuscular Hemoglobin 30 pg Mean Corpuscular Hemoglobin Concent 34 g/dL Red Cell Distribution Width 13.9 % Platelet Count 282 x10^3/uL Neutrophils (%) (Auto) 79 % Lymphocytes (%) (Auto) 12 % Monocytes (%) (Auto) 8 % Eosinophils (%) (Auto) 0 % Basophils (%) (Auto) 0 % Neutrophils # (Auto) 11.2 x10^3uL Lymphocytes # (Auto) 1.7 x10^3/uL Monocytes # (Auto) 1.2 x10^3/uL Eosinophils # (Auto) 0.0 x10^3/uL Basophils # (Auto) 0.0 x10^3/uL D-Dimer (Sera) 0.67 mg/L Sodium Level 140 mmol/L Potassium Level 3.4 mmol/L Chloride Level 104 mmol/L Carbon Dioxide Level 25 mmol/L Anion Gap 11 Blood Urea Nitrogen 15 mg/dL Creatinine 1.0 mg/dL Estimated GFR (Cockcroft-Gault) 75.0 BUN/Creatinine Ratio 15 Glucose Level 77 mg/dL Calcium Level 9.2 mg/dL Total Bilirubin 0.4 mg/dL Aspartate Amino Transf (AST/SGOT) 20 U/L Alanine Aminotransferase (ALT/SGPT) 15 U/L Alkaline Phosphatase 92 U/L Total Protein 6.9 g/dL Albumin 3.7 g/dL Albumin/Globulin Ratio 1.2 Current Medications Medications (Trade) Dose Ordered Sig/Rik Route PRN Reason Start Time Stop Time Status Last Admin Dose Admin Acetaminophen (Tylenol) 650 mg PRN Q6HRS PRN PO MILD PAIN / TEMP > 100.3'F 05/21/20 13:45 05/22/20 21:10 Carbidopa/Levodopa (Sinemet 25/100) 4 tab TID PO 05/21/20 14:00 05/23/20 20:31 Vitamin D (Vitamin D3) 50,000 unit WEEKLY PO 05/27/20 09:00 Docusate Sodium (Colace) 100 mg BID PO 05/21/20 21:00 05/23/20 20:30 Levetiracetam (Keppra) 500 mg BID PO 05/21/20 21:00 05/23/20 20:30 Al Hydroxide/Mg Hydroxide (Mylanta Plus Xs) 15 ml PRN AFTMEALHC PRN PO DYSPEPSIA 05/21/20 13:45 Magnesium Hydroxide (Milk Of Magnesia) 2,400 mg PRN QHS PRN PO CONSTIPATION 05/21/20 13:45 Midodrine (Proamatine) 5 mg TID PO 05/21/20 14:00 05/23/20 20:30 Olanzapine (ZyPREXA ZYDIS) 2.5 mg PRN Q2HR PRN PO PSYCHOSIS 05/21/20 13:45 05/23/20 20:32 Pramipexole Dihydrochloride (miraPEX) 0.25 mg BID PO 05/21/20 21:00 05/23/20 20:30 Quetiapine Fumarate (SEROquel) 100 mg QHS PO 05/21/20 21:00 05/23/20 20:30 Trazodone HCl (Desyrel) 50 mg PRN QHS PRN PO INSOMNIA 05/21/20 13:45 05/23/20 07:20 DC 05/22/20 21:11 Multi-Ingredient Ointment (Analgesic [place]) 1 king PRN QID PRN TP MUSCLE PAIN 05/21/20 14:00 Ceftriaxone Sodium 1 gm/ Sodium Chloride 50 ml @ 100 mls/hr Q24H IV 05/21/20 16:15 05/23/20 16:11 Azithromycin (Zithromax) 500 mg 1X ONCE PO 05/21/20 16:15 05/21/20 16:16 DC 05/21/20 16:53 Dexamethasone Sodium Phosphate (Decadron) 10 mg 1X ONCE IV 05/21/20 16:15 05/21/20 16:16 DC 05/21/20 16:53 Dexamethasone Sodium Phosphate (Decadron) 6 mg DAILY IVP 05/22/20 09:00 05/23/20 07:35 Azithromycin (Zithromax) 250 mg DAILY PO 05/22/20 09:00 05/23/20 07:35 Olanzapine (ZyPREXA IM) 5 mg PRN Q2HRS PRN IM AGITATION 05/21/20 18:00 05/22/20 15:00 Neomycin/ Polymyxin/ Bacitracin (Triple Antibiotic Ointment) 1 pkt BID TP 05/21/20 18:30 05/23/20 20:30 Lactobacillus Rhamnosus (Culturelle) 1 cap BID PO 05/22/20 09:00 05/23/20 20:31 Quetiapine Fumarate (SEROquel) 25 mg 1X PO 05/22/20 15:45 Quetiapine Fumarate (SEROquel) 25 mg TID PO 05/22/20 17:00 05/23/20 20:32 Lorazepam (Ativan Inj) 0.5 mg PRN Q2HRS PRN IVP ANXIETY / AGITATION 05/23/20 07:15 05/23/20 16:06 Trazodone HCl (Desyrel) 100 mg PRN QHS PRN PO INSOMNIA, MAY REPEAT X1 05/23/20 07:15 05/23/20 20:30 Olanzapine (ZyPREXA ZYDIS) 5 mg 1X PRN PO PSYCHOSIS 05/23/20 07:15 05/23/20 07:36 Midodrine (Proamatine) 5 mg [id number] PO 05/23/20 18:00 Cancel Enoxaparin Sodium (Lovenox 40mg Syringe) 40 mg Q24H SQ 05/23/20 16:00 05/23/20 16:10 Current Medications Medications (Trade) Dose Ordered Sig/Rik Route PRN Reason Start Time Stop Time Status Last Admin Dose Admin Lorazepam (Ativan Inj) 0.5 mg PRN Q2HRS PRN IVP ANXIETY / AGITATION 05/23/20 07:15 05/23/20 16:06 Trazodone HCl (Desyrel) 100 mg PRN QHS PRN PO INSOMNIA, MAY REPEAT X1 05/23/20 07:15 05/23/20 20:30 Olanzapine (ZyPREXA ZYDIS) 5 mg 1X PRN PO PSYCHOSIS 05/23/20 07:15 05/23/20 07:36 Enoxaparin Sodium (Lovenox 40mg Syringe) 40 mg Q24H SQ 05/23/20 16:00 05/23/20 16:10 I have reviewed the current psychotropics carefully including drug interactions. Risk benefit ratio favors no change other than as noted in my dictated progress note. Diagnosis: Problems: (1) Psychotic disorder (2) Impulse control disorder, unspecified (3) Anxiety disorder, unspecified (4) Major neurocognitive disorder due to Parkinson's disease with behavioral disturbance HAYLEY GUZMAN MD May 23, 2020 21:48
--- NOTE | 2020-05-23 21:48 | PDOC ---
Exam Note: Jason Note: This note is a late entry for 05/22/2020 covers elements not covered in my initial note. Subjective: The patient was reviewed on consult requested by Dr. Eugene on 05/22/2020 after the patient was transitioned to [facility]urgical floor from the [facility] once he tested positive for COVID- 19 on the [facility]. I was called by the nursing staff earlier in the day today as an emergency. The patient has been extremely anxious, restless, confused, threatening staff, physically aggressive. He did receive Zyprexa IM x1 per Dr. Eugene and we will initial Zyprexa 2.5 mg q.2h. p.r.n. psychosis and agitation, maximum 20 mg in 24 hours. Review of Systems: Otherwise review per nursing staff, no CV, , pulmonary, eye, ENT system symptoms on review. Mental Status Exam: The patient is oriented reasonably. As assessed by nursing staff, insight and judgment, recent and remote memory, attention and lindsay ntration, fund of knowledge is poor consistent with his diagnosis. Laboratory Data: Reviewed. 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 Anxiety disorder unspecified. Impulse control disorder unspecified. Plan: Initiate above as noted. Continue rest unchanged for now. Assessment: Vital Signs/I&O: Vital Signs Date Time Temp Pulse Resp B/P (MAP) Pulse Ox O2 Delivery O2 Flow Rate FiO2 05/23/20 20:30 78 152/99 05/23/20 19:22 96.8 18 99 Room Air I & O 05/22/20 05/22/20 05/23/20 15:00 23:00 07:00 Intake Total 600 ml 440 ml 150 ml Output Total 100 ml 50 ml Balance 600 ml 340 ml 100 ml Labs: Laboratory Tests Test 05/23/20 06:40 White Blood Count 14.1 x10^3/uL (4.0-11.0) H Red Blood Count 4.93 x10^6/uL (4.30-5.70) Hemoglobin 14.7 g/dL (13.0-17.5) Hematocrit 43.9 % (39.0-53.0) Mean Corpuscular Volume 89 fL (79-100) Mean Corpuscular Hemoglobin 30 pg (25-35) Mean Corpuscular Hemoglobin Concent 34 g/dL (31-37) Red Cell Distribution Width 13.9 % (11.5-14.5) Platelet Count 282 x10^3/uL (140-400) Neutrophils (%) (Auto) 79 % (31-73) H Lymphocytes (%) (Auto) 12 % (24-48) L Monocytes (%) (Auto) 8 % (0-9) Eosinophils (%) (Auto) 0 % (0-3) Basophils (%) (Auto) 0 % (0-3) Neutrophils # (Auto) 11.2 x10^3uL (1.8-7.7) H Lymphocytes # (Auto) 1.7 x10^3/uL (1.0-4.8) Monocytes # (Auto) 1.2 x10^3/uL (0.0-1.1) H Eosinophils # (Auto) 0.0 x10^3/uL (0.0-0.7) Basophils # (Auto) 0.0 x10^3/uL (0.0-0.2) D-Dimer (Sera) 0.67 mg/L (0.00-0.50) H Sodium Level 140 mmol/L (136-145) Potassium Level 3.4 mmol/L (3.5-5.1) L Chloride Level 104 mmol/L (98-107) Carbon Dioxide Level 25 mmol/L (21-32) Anion Gap 11 (6-14) Blood Urea Nitrogen 15 mg/dL (8-26) Creatinine 1.0 mg/dL (0.7-1.3) Estimated GFR (Cockcroft-Gault) 75.0 BUN/Creatinine Ratio 15 (6-20) Glucose Level 77 mg/dL (70-99) Calcium Level 9.2 mg/dL (8.5-10.1) Total Bilirubin 0.4 mg/dL (0.2-1.0) Aspartate Amino Transferase (AST) 20 U/L (15-37) Alanine Aminotransferase (ALT) 15 U/L (16-63) L Alkaline Phosphatase 92 U/L (46-116) Total Protein 6.9 g/dL (6.4-8.2) Albumin 3.7 g/dL (3.4-5.0) Albumin/Globulin Ratio 1.2 (1.0-1.7) Current Medications: Meds: Laboratory Tests Test 05/23/20 06:40 White Blood Count 14.1 x10^3/uL Red Blood Count 4.93 x10^6/uL Hemoglobin 14.7 g/dL Hematocrit 43.9 % Mean Corpuscular Volume 89 fL Mean Corpuscular Hemoglobin 30 pg Mean Corpuscular Hemoglobin Concent 34 g/dL Red Cell Distribution Width 13.9 % Platelet Count 282 x10^3/uL Neutrophils (%) (Auto) 79 % Lymphocytes (%) (Auto) 12 % Monocytes (%) (Auto) 8 % Eosinophils (%) (Auto) 0 % Basophils (%) (Auto) 0 % Neutrophils # (Auto) 11.2 x10^3uL Lymphocytes # (Auto) 1.7 x10^3/uL Monocytes # (Auto) 1.2 x10^3/uL Eosinophils # (Auto) 0.0 x10^3/uL Basophils # (Auto) 0.0 x10^3/uL D-Dimer (Sera) 0.67 mg/L Sodium Level 140 mmol/L Potassium Level 3.4 mmol/L Chloride Level 104 mmol/L Carbon Dioxide Level 25 mmol/L Anion Gap 11 Blood Urea Nitrogen 15 mg/dL Creatinine 1.0 mg/dL Estimated GFR (Cockcroft-Gault) 75.0 BUN/Creatinine Ratio 15 Glucose Level 77 mg/dL Calcium Level 9.2 mg/dL Total Bilirubin 0.4 mg/dL Aspartate Amino Transf (AST/SGOT) 20 U/L Alanine Aminotransferase (ALT/SGPT) 15 U/L Alkaline Phosphatase 92 U/L Total Protein 6.9 g/dL Albumin 3.7 g/dL Albumin/Globulin Ratio 1.2 Current Medications Medications (Trade) Dose Ordered Sig/Rik Route PRN Reason Start Time Stop Time Status Last Admin Dose Admin Acetaminophen (Tylenol) 650 mg PRN Q6HRS PRN PO MILD PAIN / TEMP > 100.3'F 05/21/20 13:45 05/22/20 21:10 Carbidopa/Levodopa (Sinemet 25/100) 4 tab TID PO 05/21/20 14:00 05/23/20 20:31 Vitamin D (Vitamin D3) 50,000 unit WEEKLY PO 05/27/20 09:00 Docusate Sodium (Colace) 100 mg BID PO 05/21/20 21:00 05/23/20 20:30 Levetiracetam (Keppra) 500 mg BID PO 05/21/20 21:00 05/23/20 20:30 Al Hydroxide/Mg Hydroxide (Mylanta Plus Xs) 15 ml PRN AFTMEALHC PRN PO DYSPEPSIA 05/21/20 13:45 Magnesium Hydroxide (Milk Of Magnesia) 2,400 mg PRN QHS PRN PO CONSTIPATION 05/21/20 13:45 Midodrine (Proamatine) 5 mg TID PO 05/21/20 14:00 05/23/20 20:30 Olanzapine (ZyPREXA ZYDIS) 2.5 mg PRN Q2HR PRN PO PSYCHOSIS 05/21/20 13:45 05/23/20 20:32 Pramipexole Dihydrochloride (miraPEX) 0.25 mg BID PO 05/21/20 21:00 05/23/20 20:30 Quetiapine Fumarate (SEROquel) 100 mg QHS PO 05/21/20 21:00 05/23/20 20:30 Trazodone HCl (Desyrel) 50 mg PRN QHS PRN PO INSOMNIA 05/21/20 13:45 05/23/20 07:20 DC 05/22/20 21:11 Multi-Ingredient Ointment (Analgesic [place]) 1 king PRN QID PRN TP MUSCLE PAIN 05/21/20 14:00 Ceftriaxone Sodium 1 gm/ Sodium Chloride 50 ml @ 100 mls/hr Q24H IV 05/21/20 16:15 05/23/20 16:11 Azithromycin (Zithromax) 500 mg 1X ONCE PO 05/21/20 16:15 05/21/20 16:16 DC 05/21/20 16:53 Dexamethasone Sodium Phosphate (Decadron) 10 mg 1X ONCE IV 05/21/20 16:15 05/21/20 16:16 DC 05/21/20 16:53 Dexamethasone Sodium Phosphate (Decadron) 6 mg DAILY IVP 05/22/20 09:00 05/23/20 07:35 Azithromycin (Zithromax) 250 mg DAILY PO 05/22/20 09:00 05/23/20 07:35 Olanzapine (ZyPREXA IM) 5 mg PRN Q2HRS PRN IM AGITATION 05/21/20 18:00 05/22/20 15:00 Neomycin/ Polymyxin/ Bacitracin (Triple Antibiotic Ointment) 1 pkt BID TP 05/21/20 18:30 05/23/20 20:30 Lactobacillus Rhamnosus (Culturelle) 1 cap BID PO 05/22/20 09:00 05/23/20 20:31 Quetiapine Fumarate (SEROquel) 25 mg 1X PO 05/22/20 15:45 Quetiapine Fumarate (SEROquel) 25 mg TID PO 05/22/20 17:00 05/23/20 20:32 Lorazepam (Ativan Inj) 0.5 mg PRN Q2HRS PRN IVP ANXIETY / AGITATION 05/23/20 07:15 05/23/20 16:06 Trazodone HCl (Desyrel) 100 mg PRN QHS PRN PO INSOMNIA, MAY REPEAT X1 05/23/20 07:15 05/23/20 20:30 Olanzapine (ZyPREXA ZYDIS) 5 mg 1X PRN PO PSYCHOSIS 05/23/20 07:15 05/23/20 07:36 Midodrine (Proamatine) 5 mg [id number] PO 05/23/20 18:00 Cancel Enoxaparin Sodium (Lovenox 40mg Syringe) 40 mg Q24H SQ 05/23/20 16:00 05/23/20 16:10 Current Medications Medications (Trade) Dose Ordered Sig/Rik Route PRN Reason Start Time Stop Time Status Last Admin Dose Admin Lorazepam (Ativan Inj) 0.5 mg PRN Q2HRS PRN IVP ANXIETY / AGITATION 05/23/20 07:15 05/23/20 16:06 Trazodone HCl (Desyrel) 100 mg PRN QHS PRN PO INSOMNIA, MAY REPEAT X1 05/23/20 07:15 05/23/20 20:30 Olanzapine (ZyPREXA ZYDIS) 5 mg 1X PRN PO PSYCHOSIS 05/23/20 07:15 05/23/20 07:36 Enoxaparin Sodium (Lovenox 40mg Syringe) 40 mg Q24H SQ 05/23/20 16:00 05/23/20 16:10 I have reviewed the current psychotropics carefully including drug interactions. Risk benefit ratio favors no change other than as noted in my dictated progress note. Diagnosis: Problems: (1) Psychotic disorder (2) Impulse control disorder, unspecified (3) Anxiety disorder, unspecified (4) Major neurocognitive disorder due to Parkinson's disease with behavioral disturbance HAYLEY GUZMAN MD May 23, 2020 21:48
[2020-05-23 22:26] VITALS: BP 115/66
--- NOTE | 2020-05-24 04:45 | NUR ---
Pt resting in bed with eyes closed at change of shift. Pt is alert to self only, confused and can be delusional. Pt will reach for objects in air that are not there and talk/ramble to others in room that are not there. When awake, pt is very fidgety or trying to get out of bed, unsteady on feet. Pt ate pudding twice during shift and took HS medications. Pt slept on and off during the night, longest period was about 90 mins. Pt given PRN Ativan and Zyprexa during shift for agitation. 1to1 staff at bedside.
[2020-05-24 06:22] VITALS: BP 152/88
--- NOTE | 2020-05-24 08:30 | PDOC ---
Exam Note: Jason Note: This note is a late entry for 05/23/2020 covers elements not covered in my initial note. Subjective: The patient was discussed with nursing staff, reviewed the chart. The patient remains extremely agitated, restless, psychotic, and aggressive. He remains confused. Review of Systems: Per nursing observations, no CV, , pulmonary, eye, ENT system symptoms on review. Mental Status Exam: Per description by nursing staff, the patient remains oriented to himself. Insight and judgment, recent and remote memory, attention and concentration, fund of knowledge is poor consistent with his diagnosis. Laboratory Data: Reviewed. 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 Anxiety disorder unspecified. Impulse control disorder unspecified. COVID-19 positive status. Await repeat antibody testing. Plan: Continue current psychotropics. Increase Zyprexa p.r.n. Make further adjustments as clinically indicated. Assessment: Vital Signs/I&O: Vital Signs Date Time Temp Pulse Resp B/P (MAP) Pulse Ox O2 Delivery O2 Flow Rate FiO2 05/24/20 06:22 97.6 67 18 152/88 (109) 95 Room Air I & O 05/23/20 05/23/20 05/24/20 14:59 22:59 06:59 Intake Total 170 ml 770 ml 50 ml Output Total 600 ml Balance 170 ml 170 ml 50 ml Current Medications: Meds: Current Medications Medications (Trade) Dose Ordered Sig/Rik Route PRN Reason Start Time Stop Time Status Last Admin Dose Admin Acetaminophen (Tylenol) 650 mg PRN Q6HRS PRN PO MILD PAIN / TEMP > 100.3'F 05/21/20 13:45 05/22/20 21:10 Carbidopa/Levodopa (Sinemet 25/100) 4 tab TID PO 05/21/20 14:00 05/23/20 20:31 Vitamin D (Vitamin D3) 50,000 unit WEEKLY PO 05/27/20 09:00 Docusate Sodium (Colace) 100 mg BID PO 05/21/20 21:00 05/23/20 20:30 Levetiracetam (Keppra) 500 mg BID PO 05/21/20 21:00 05/23/20 20:30 Al Hydroxide/Mg Hydroxide (Mylanta Plus Xs) 15 ml PRN AFTMEALHC PRN PO DYSPEPSIA 05/21/20 13:45 Magnesium Hydroxide (Milk Of Magnesia) 2,400 mg PRN QHS PRN PO CONSTIPATION 05/21/20 13:45 Midodrine (Proamatine) 5 mg TID PO 05/21/20 14:00 05/23/20 20:30 Olanzapine (ZyPREXA ZYDIS) 2.5 mg PRN Q2HR PRN PO PSYCHOSIS 05/21/20 13:45 05/24/20 04:04 Pramipexole Dihydrochloride (miraPEX) 0.25 mg BID PO 05/21/20 21:00 05/23/20 20:30 Quetiapine Fumarate (SEROquel) 100 mg QHS PO 05/21/20 21:00 05/23/20 20:30 Trazodone HCl (Desyrel) 50 mg PRN QHS PRN PO INSOMNIA 05/21/20 13:45 05/23/20 07:20 DC 05/22/20 21:11 Multi-Ingredient Ointment (Analgesic [place]) 1 king PRN QID PRN TP MUSCLE PAIN 05/21/20 14:00 Ceftriaxone Sodium 1 gm/ Sodium Chloride 50 ml @ 100 mls/hr Q24H IV 05/21/20 16:15 05/23/20 16:11 Azithromycin (Zithromax) 500 mg 1X ONCE PO 05/21/20 16:15 05/21/20 16:16 DC 05/21/20 16:53 Dexamethasone Sodium Phosphate (Decadron) 10 mg 1X ONCE IV 05/21/20 16:15 05/21/20 16:16 DC 05/21/20 16:53 Dexamethasone Sodium Phosphate (Decadron) 6 mg DAILY IVP 05/22/20 09:00 05/23/20 07:35 Azithromycin (Zithromax) 250 mg DAILY PO 05/22/20 09:00 05/23/20 07:35 Olanzapine (ZyPREXA IM) 5 mg PRN Q2HRS PRN IM AGITATION 05/21/20 18:00 05/22/20 15:00 Neomycin/ Polymyxin/ Bacitracin (Triple Antibiotic Ointment) 1 pkt BID TP 05/21/20 18:30 05/23/20 20:30 Lactobacillus Rhamnosus (Culturelle) 1 cap BID PO 05/22/20 09:00 05/23/20 20:31 Quetiapine Fumarate (SEROquel) 25 mg 1X PO 05/22/20 15:45 Quetiapine Fumarate (SEROquel) 25 mg TID PO 05/22/20 17:00 05/23/20 20:32 Lorazepam (Ativan Inj) 0.5 mg PRN Q2HRS PRN IVP ANXIETY / AGITATION 05/23/20 07:15 2 01:24 Trazodone HCl (Desyrel) 100 mg PRN QHS PRN PO INSOMNIA, MAY REPEAT X1 05/23/20 07:15 05/23/20 20:30 Olanzapine (ZyPREXA ZYDIS) 5 mg 1X PRN PO PSYCHOSIS 05/23/20 07:15 05/23/20 07:36 Midodrine (Proamatine) 5 mg [id number] PO 05/23/20 18:00 Cancel Enoxaparin Sodium (Lovenox 40mg Syringe) 40 mg Q24H SQ 05/23/20 16:00 05/23/20 16:10 Current Medications Medications (Trade) Dose Ordered Sig/Rik Route PRN Reason Start Time Stop Time Status Last Admin Dose Admin Enoxaparin Sodium (Lovenox 40mg Syringe) 40 mg Q24H SQ 05/23/20 16:00 05/23/20 16:10 I have reviewed the current psychotropics carefully including drug interactions. Risk benefit ratio favors no change other than as noted in my dictated progress note. Diagnosis: Problems: (1) Psychotic disorder (2) Impulse control disorder, unspecified (3) Anxiety disorder, unspecified (4) Major neurocognitive disorder due to Parkinson's disease with behavioral disturbance HAYLEY GUZMAN MD May 24, 2020 08:30
[2020-05-24] MEDS: NEOMY/BACITR/POLYMYXIN OINT PACKET. TP SCH ×2 (08:35→21:29)
[2020-05-24] MEDS: AZITHROMYCIN 250 MG TABLET. PO SCH (08:36)
[2020-05-24] MEDS: QUEtiapine 25 MG TABLET. PO SCH ×3 (08:36→21:29)
[2020-05-24] MEDS: LACTOBACILLUS RHAMNOSUS GG 1 CAPSULE. PO SCH ×2 (08:36→21:28)
[2020-05-24] MEDS: CARBIDOPA/LEVODOPA 25/100MG TABLET PO SCH ×3 (08:36→21:29)
[2020-05-24] MEDS: levETIRAcetam 500 MG TABLET PO SCH ×2 (08:36→21:29)
[2020-05-24] MEDS: DOCUSATE SODIUM 100 MG CAPSULE PO SCH ×2 (08:36→21:29)
[2020-05-24] MEDS: MIDODRINE 5 MG TABLET PO SCH ×3 (08:37→21:30)
[2020-05-24] MEDS: DEXAMETHASONE SOD PHOS 10 MG/ML VIAL. IVP SCH (08:38)
[2020-05-24] MEDS: PRAMIPEXOLE 0.25 MG TABLET. PO SCH ×2 (09:00→21:30)
[2020-05-24 12:12] VITALS: BP 115/59
--- NOTE | 2020-05-24 14:58 | PN ---
DATE: 05/24/2020 SUBJECTIVE: The patient is resting, slightly propped up in bed, in no apparent distress. He was sleepy, but arousable. Nursing staff stated that he has been eating and drinking, mostly bedbound, did not have any further episodes of restlessness, agitation and attempted to elope again. PHYSICAL EXAMINATION: GENERAL: When I saw him this afternoon, he looked well and was clearly in no apparent respiratory distress. No pallor, jaundice, cyanosis or thyromegaly. No jugular venous distention or limb edema. VITAL SIGNS: His heart rate was 85, blood pressure 115/59, temperature 97.8, respiratory rate was 18 and oxygen saturation was 97%. HEAD, EYES, EARS, NOSE, AND THROAT: Showed normocephalic, atraumatic. NECK: Supple. HEART: Showed normal first and second heart sounds. No gallop, rub or murmur. CHEST: Clear to auscultation. No crepitation or rhonchi. ABDOMEN: Distended, soft, nontender. NEUROLOGIC: He was sleepy, but arousable. All cranial nerves are intact. He moves extremities without difficulty. His intake is 1200, output was 150. LABORATORY DATA: As of yesterday showed a white cell count of 14,000, hemoglobin 15, hematocrit 44, MCV 89 and platelet count 262,000. His chemistry showed a serum sodium 140, potassium 3.4, chloride 104, bicarbonate 25, anion gap of 11, BUN 15, creatinine 1. His D-dimer was high at 0.67. Urinalysis is unremarkable. ASSESSMENT: 1. COVID-19 pneumonia. 2. Parkinson disease. 3. Seizure disorder for recurrent syncopal episode, for which he has a permanent pacemaker. 4. The patient continues to be delusional and hallucinating. PLAN: My plan is to continue with IV antibiotic. Continue with IV dexamethasone. Continue with all his other psychotropic medication. Dr. Garnica was consulted. JATINDER CHUNG MD DR: TERENCE/stevo JOB#: [id number] / [id number]
[2020-05-24] MEDS: ENOXAPARIN 40 MG/0.4 ML SYRINGE. SQ SCH (16:14)
--- NOTE | 2020-05-24 17:33 | NUR ---
PATIENT IS IN A BED MOST OF THE SHIFT, ON AND OFF ASLEEP, PATIENT IS CONFUSED AND HALLUCINATING WHEN AWAKE, HOLDING HIS ARMS UP AND LOOKS LIKE DRAWING OR PAINTING, TRYING TO REACH OR POINT TO SOMETHING THAT IS NOT THERE. PATIENT IS TRYING TO GET UP WITHOUT ASSIST AT TIMES, BED ALARM IS ON WITH 1:1 OBSERVATION. ZYDIS AND ATIVAN PRN GIVEN ORDERED TO PROMOTE REST AND DECREASE AGITATION.
[2020-05-24] MEDS: QUEtiapine 100 MG TABLET. PO SCH (21:28)
[2020-05-24 22:03] VITALS: BP 147/88
--- NOTE | 2020-05-25 01:31 | PN ---
DATE: 05/23/2020 SUBJECTIVE: The patient has been extremely agitated and restless. He has intermittent mild tremor of the upper extremities. He is in bed and he was transferred from psych unit to [address] [place] [address] because he has had left lobe pneumonia and came positive for COVID-19 diagnosed 2 days ago. He denies any new neurological complaints. OBJECTIVE: GENERAL: Well-developed, well-nourished male, not in acute distress. VITAL SIGNS: Blood pressure 159/90, respiratory rate 18, pulse is 80 and regular, temperature is 95.7, oxygen saturation 94% on room air. HEENT: Normocephalic, atraumatic, otherwise unremarkable. NECK: Supple. Negative for carotid bruit, lymphadenopathy or thyromegaly. LUNGS: Clear to A and P. CARDIOVASCULAR: Regular rhythm. Normal S1, S2. ABDOMEN: Soft. EXTREMITIES: Negative for cyanosis, clubbing, pitting edema. NEUROLOGICAL EXAM: Mental Status: The patient is alert and oriented to himself. Speech is fluent. There is no language dysfunction. Memory, judgment, and abstracting thinking are poor. The patient continues to have intermittent hallucination and delusion. Cranial nerves are grossly intact. No focal motor or sensory deficit. The patient has intermittent tremor of the upper extremities. Sensory examination revealed normal pinprick and light touch senses. Deep tendon reflexes were symmetric and active without pathologic responses. Gait not tested. IMPRESSION: 1. Parkinson disease -- stable. 2. COVID-19 pneumonia. 3. Multiple medical problems include dementia. 4. Coronary artery disease. 5. Seizure disorder -- stable. 6. History of syncopal episode, required pacemaker placement. RECOMMENDATIONS: 1. Continue with current medical and psychiatric care. 2. Continue with carbidopa/levodopa 25/100 two tablets t.i.d. 3. Continue with Mirapex at 0.25 mg b.i.d. M Enrike JONES MD DR: TAMRA/stevo JOB#: [id number] / [id number]
[2020-05-25 06:32] VITALS: BP 144/95
--- NOTE | 2020-05-25 06:35 | NUR ---
Patient calm and cooperative this shift, no attempts to wander.
[2020-05-25 07:19] LABS: HEMOGLOBIN 15.9 g/dL (13.0-17.5); RED BLOOD COUNT 5.33 x10^6/uL (4.30-5.70); WHITE BLOOD COUNT 13.4 x10^3/uL (4.0-11.0)
[2020-05-25 07:37] LABS: ALBUMIN 3.4 g/dL (3.4-5.0); CALCIUM 8.8 mg/dL (8.5-10.1); CREATININE 0.9 mg/dL (0.7-1.3); GFR 84.7; POTASSIUM 3.7 mmol/L (3.5-5.1); TOTAL BILIRUBIN 0.6 mg/dL (0.2-1.0); TOTAL PROTEIN 6.7 g/dL (6.4-8.2)
[2020-05-25] MEDS: MIDODRINE 5 MG TABLET PO SCH ×3 (09:37→20:12)
[2020-05-25] MEDS: CARBIDOPA/LEVODOPA 25/100MG TABLET PO SCH ×3 (09:37→20:11)
[2020-05-25] MEDS: LACTOBACILLUS RHAMNOSUS GG 1 CAPSULE. PO SCH ×2 (09:38→20:11)
[2020-05-25] MEDS: AZITHROMYCIN 250 MG TABLET. PO SCH (09:38)
[2020-05-25] MEDS: NEOMY/BACITR/POLYMYXIN OINT PACKET. TP SCH ×2 (09:38→20:12)
[2020-05-25] MEDS: QUEtiapine 25 MG TABLET. PO SCH ×3 (09:38→20:12)
[2020-05-25] MEDS: levETIRAcetam 500 MG TABLET PO SCH ×2 (09:38→20:12)
[2020-05-25] MEDS: PRAMIPEXOLE 0.25 MG TABLET. PO SCH ×2 (09:38→21:00)
[2020-05-25] MEDS: DOCUSATE SODIUM 100 MG CAPSULE PO SCH ×2 (09:38→20:11)
[2020-05-25] MEDS: DEXAMETHASONE SOD PHOS 10 MG/ML VIAL. IVP SCH (09:39)
--- NOTE | 2020-05-25 14:38 | PN ---
DATE: 05/25/2020 SUBJECTIVE: The patient continues to be very lethargic, arousable. He apparently is eating and drinking and moves around within the room; however, he did not try to elope again. PHYSICAL EXAMINATION: GENERAL: When I examined him this afternoon, he looked well and was clearly in no apparent distress. No pallor, jaundice, cyanosis or thyromegaly. No jugular venous distension. No limb edema. VITAL SIGNS: His heart rate was 60, blood pressure was 144/95, temperature was 98.6, respiratory rate 20, and oxygen saturation was 95%. HEAD, EYES, EARS, NOSE, AND THROAT: Showed normocephalic, atraumatic. NECK: Supple. HEART: Showed normal first and second heart sounds. No gallop, rub, or murmur. CHEST: Clear to auscultation. No crepitation or rhonchi. ABDOMEN: Distended, soft, nontender. NEUROLOGIC: He was very lethargic, but arousable. All cranial nerves are intact. He moves extremities without difficulty. He is mostly bedbound, although he gets out and walks around occasionally. His intake was 990, output was 600. LABORATORY DATA: As of this morning, his white cell count was 13,400, hemoglobin 16, hematocrit 47, MCV 88, and platelet count 232,000. His chemistry showed a serum sodium 140, potassium 3.7, chloride 102, bicarbonate 29, anion gap of 9, BUN 13, creatinine 0.9, estimated GFR was 84 mL per minute. His glucose was 84, calcium was 8.8. Total bilirubin, AST, ALT, alkaline phosphatase were normal. Total protein was 6.7, albumin was 3.4. D-dimer was slightly elevated at 0.67. Urinalysis was unremarkable. ASSESSMENT: 1. COVID-19 pneumonia. 2. Parkinson disease. 3. Seizure disorder. 4. Recurrent syncopal episodes for which he has a permanent pacemaker. 5. The patient apparently continued to be delusional and hallucinating. PLAN: To continue with IV antibiotic. Continue with dexamethasone. Continue with all his psychotropic medication. Continue with Sinemet and Mirapex for Parkinson's disease. Inputs from Dr. Garnica and Dr. Landaverde are greatly appreciated. JATINDER CHUNG MD DR: TERENCE/stevo JOB#: [id number] / [id number]
[2020-05-25 14:55] VITALS: BP 106/59
[2020-05-25] MEDS: ENOXAPARIN 40 MG/0.4 ML SYRINGE. SQ SCH (16:00)
[2020-05-25 19:49] VITALS: BP 134/69
[2020-05-25] MEDS: traZODone 100 MG TABLET. PO PRN (20:11)
[2020-05-25] MEDS: QUEtiapine 100 MG TABLET. PO SCH (20:12)
--- NOTE | 2020-05-26 05:38 | NUR ---
Shift Note: Pt a/o to self, VSS, no c/o pain or n/v at this time, pt continues to be impulsive trying to climb out of bed multiple times throughout the night (requires redirection and reorientation to surroundings and situation), pt compliant with taking pills whole w/water, pt continent of urine throughout the night.
[2020-05-26 07:34] VITALS: BP 134/88
[2020-05-26] MEDS: NEOMY/BACITR/POLYMYXIN OINT PACKET. TP SCH ×2 (09:47→20:51)
[2020-05-26] MEDS: DOCUSATE SODIUM 100 MG CAPSULE PO SCH ×2 (09:47→20:52)
[2020-05-26] MEDS: MIDODRINE 5 MG TABLET PO SCH ×3 (09:47→20:51)
[2020-05-26] MEDS: PRAMIPEXOLE 0.25 MG TABLET. PO SCH ×2 (09:47→20:52)
[2020-05-26] MEDS: LACTOBACILLUS RHAMNOSUS GG 1 CAPSULE. PO SCH ×2 (09:47→20:51)
[2020-05-26] MEDS: CARBIDOPA/LEVODOPA 25/100MG TABLET PO SCH ×3 (09:47→20:52)
[2020-05-26] MEDS: AZITHROMYCIN 250 MG TABLET. PO SCH (09:47)
[2020-05-26] MEDS: levETIRAcetam 500 MG TABLET PO SCH ×2 (09:47→20:52)
[2020-05-26] MEDS: DEXAMETHASONE SOD PHOS 10 MG/ML VIAL. IVP SCH (09:48)
[2020-05-26] MEDS: QUEtiapine 25 MG TABLET. PO SCH ×3 (09:48→20:52)
--- NOTE | 2020-05-26 10:13 | PN ---
DATE: 05/26/2020 ATTENDING PHYSICIAN: Dr. Eugene. SUBJECTIVE: The patient is lethargic. He has a classic mask-like faces of Parkinson's disease. He is alert and arousable. No new complaints. He denied any dyspnea or pain. OBJECTIVE FINDINGS: VITAL SIGNS: Heart rate is 78 this morning, blood pressure 134/88 mmHg, oxygen saturation 98% on room air, temperature 97.8 degrees Fahrenheit. HEENT: Head is without trauma. Pupils are reactive. Face is mass-like. NECK: Supple. No stridor. LUNGS: Shallow respirations. CARDIOVASCULAR: Showed regular heart tones. ABDOMEN: Soft. EXTREMITIES: Without edema. NEUROLOGIC: Pleasantly confused. He is not trying to get out of bed. SKIN: Warm and dry. LABORATORY DATA: Hemoglobin is 15.9 grams, white count 13,400. Electrolytes are within normal range. Chest x-ray reviewed. Small left basilar infiltrate. ASSESSMENT: 1. A 65-year-old gentleman from the [facility] with COVID-19 pneumonia. 2. Parkinson's disease. 3. Idiopathic seizure disorder. 4. Recurrent syncope with permanent pacemaker. 5. Delusional behavior with hallucinations. 6. Underlying dementia. PLAN: 1. Continue antibiotics. 2. Psychotropic meds per Psychiatry. 3. Continue Sinemet. 4. Rx per Dr. Garnica and Dr. Landaverde. 5. Tentative discharge back up to the [facility] when bed is available. EMI KAMINSKI MD DR: CONSTANCE/stevo JOB#: [id number] / [id number]
[2020-05-26 13:54] VITALS: BP 136/90
[2020-05-26 15:40] VITALS: BP 134/87
[2020-05-26] MEDS: ENOXAPARIN 40 MG/0.4 ML SYRINGE. SQ SCH (17:06)
[2020-05-26 18:43] VITALS: BP 139/83
--- NOTE | 2020-05-26 19:31 | NUR ---
1:1 supervision order discontinued. Last 15 minute check at 1900. PT resting comfortably in bed. Bed alarm applied.
[2020-05-26] MEDS: traZODone 100 MG TABLET. PO PRN (20:51)
[2020-05-26] MEDS: QUEtiapine 100 MG TABLET. PO SCH (20:51)
[2020-05-26 21:15] VITALS: BP 157/95
[2020-05-27 05:09] VITALS: BP 99/78
--- NOTE | 2020-05-27 05:24 | NUR ---
Pt spent much of the night resting comfortably in bed. Pt up briefly x2 to void in urinal. Cooperative with cares at that time. Pt awoke at approx. 0445, spilled water on linens and disrobing. Pt with legs dangling over bed rails, bed alarm sounding. Assisted to sit in chair. While attempting to change pt's linens and gown, pt aggressive and resisting cares. Increasingly agitated with redirection. Attempted to give PRN zyprexa as indicated, but pt refused. Pt accusing staff of poisoning him; dumped pill cup and water on floor. Pt grabbing at staff and refusing to let go. Pt also appears to be hallucinating, picking at the floor and waving arms in the air. Additional staff x2 called to bedside and PRN Ativan IVP given. Linens and gown then changed after much encouragement and pt placed back in bed, with bed alarm and tab alarm in place for safety.
[2020-05-27 07:16] VITALS: BP 118/86
[2020-05-27] MEDS: DEXAMETHASONE SOD PHOS 10 MG/ML VIAL. IVP SCH (08:20)
[2020-05-27] MEDS: levETIRAcetam 500 MG TABLET PO SCH ×2 (08:20→20:38)
[2020-05-27] MEDS: DOCUSATE SODIUM 100 MG CAPSULE PO SCH ×2 (08:20→20:38)
[2020-05-27] MEDS: AZITHROMYCIN 250 MG TABLET. PO SCH (08:20)
[2020-05-27] MEDS: LACTOBACILLUS RHAMNOSUS GG 1 CAPSULE. PO SCH ×2 (08:20→20:37)
[2020-05-27] MEDS: CARBIDOPA/LEVODOPA 25/100MG TABLET PO SCH ×3 (08:20→20:37)
[2020-05-27] MEDS: MIDODRINE 5 MG TABLET PO SCH ×3 (08:21→16:54)
[2020-05-27] MEDS: PRAMIPEXOLE 0.25 MG TABLET. PO SCH ×2 (08:21→20:38)
[2020-05-27] MEDS: NEOMY/BACITR/POLYMYXIN OINT PACKET. TP SCH ×2 (08:21→20:37)
[2020-05-27] MEDS: QUEtiapine 25 MG TABLET. PO SCH ×3 (08:21→20:38)
[2020-05-27] MEDS ORDERED: CHOLECALCIFEROL (VITAMIN D3) 50,000 UNIT CAPSULE PO SCH (09:00)
--- NOTE | 2020-05-27 09:38 | NUR ---
PATIENT WILL BE TRANSFERRED TO ICU ROOM 5 FOR BETTER OBSERVATION. REPORT GIVEN TO TURNER BLANC.
[2020-05-27 11:15] VITALS: BP 126/77
--- NOTE | 2020-05-27 11:26 | PN ---
DATE: 05/27/2020 ATTENDING PHYSICIAN: Dr. Jean Eugene SUBJECTIVE: The patient is pleasantly confused. He is in no distress, a little bit less lethargic today. OBJECTIVE FINDINGS: VITAL SIGNS: Blood pressure today is 118/86 mmHg, pulse is 83 and regular, temperature 98.5 degrees Fahrenheit, oxygen saturation 97% on room air. HEENT: Head is without trauma. Pupils are reactive. Sclerae nonicteric. Oropharynx is clear. NECK: Supple. LUNGS: Shallow respirations. CARDIOVASCULAR: Showed regular heart tones. No gallops. ABDOMEN: Soft. EXTREMITIES: Without edema. NEUROLOGIC: Pleasantly confused. He is a less agitated, less lethargic. LABORATORY DATA: Chest x-ray was reviewed. ASSESSMENT: 1. A 65-year-old gentleman from the [facility] with COVID-19 pneumonia. 2. Parkinson's disease. 3. Idiopathic seizure disorder. 4. Recurrent syncope with permanent pacemaker. 5. Profound dementia with delusional behavior and hallucination. PLAN: 1. Continue antibiotics as ordered. 2. Psychotropic meds per Psychiatry. 3. Continue Sinemet. 4. Rx per Neurology and Psychiatry. 5. Tentative plans for him to be on the medical floor for the weekend and readmission back to the psychiatric unit next week. EMI KAMINSKI MD DR: CONSTANCE/stevo JOB#: [id number] / [id number]
--- NOTE | 2020-05-27 11:30 | NUR ---
Pt slowly attempting to slide to edge of bed, assisted patient to standing position, pt unsteady and had to sit down a couple times. Pt did not walk but stood for a few moments. Pt assisted to chair next to bed, table placed in front of patient, chair alarm in place. Pt displays a shuffling gait from bed to chair, very unsteady, gait belt in place for assistance. Pt AOX1
[2020-05-27] MEDS: OLANZapine IM 10 MG VIAL. IM PRN (13:13)
--- NOTE | 2020-05-27 13:26 | NUR ---
Pt resting in bed, meds administered recently due to agitation. Attempted to given PO midodrine medication but pt refused, pt grabbed this RNs arm and squeezed tightly not allowing me to leave. Pt mumbling and angry. Pt unwilling to take PO meds at this time
[2020-05-27] MEDS: ENOXAPARIN 40 MG/0.4 ML SYRINGE. SQ SCH (16:54)
[2020-05-27 19:45] VITALS: BP 144/83
[2020-05-27] MEDS: ACETAMINOPHEN 325 MG TABLET PO PRN (20:37)
[2020-05-27] MEDS: QUEtiapine 100 MG TABLET. PO SCH (20:37)
[2020-05-27] MEDS: traZODone 100 MG TABLET. PO PRN (20:38)
[2020-05-28 03:45] VITALS: BP 152/84
[2020-05-28] MEDS: NEOMY/BACITR/POLYMYXIN OINT PACKET. TP SCH ×2 (09:00→20:06)
[2020-05-28] MEDS: QUEtiapine 25 MG TABLET. PO SCH ×3 (10:56→20:05)
[2020-05-28] MEDS: MIDODRINE 5 MG TABLET PO SCH ×3 (10:56→18:00)
[2020-05-28] MEDS: levETIRAcetam 500 MG TABLET PO SCH ×2 (10:56→20:05)
[2020-05-28] MEDS: AZITHROMYCIN 250 MG TABLET. PO SCH (10:57)
[2020-05-28] MEDS: LACTOBACILLUS RHAMNOSUS GG 1 CAPSULE. PO SCH ×2 (10:57→20:05)
[2020-05-28] MEDS: CARBIDOPA/LEVODOPA 25/100MG TABLET PO SCH ×3 (10:57→20:05)
[2020-05-28] MEDS: DOCUSATE SODIUM 100 MG CAPSULE PO SCH ×2 (10:57→20:05)
[2020-05-28] MEDS: DEXAMETHASONE SOD PHOS 10 MG/ML VIAL. IVP SCH (10:57)
[2020-05-28] MEDS: PRAMIPEXOLE 0.25 MG TABLET. PO SCH ×2 (11:04→20:09)
--- NOTE | 2020-05-28 14:21 | PN ---
DATE: 05/28/2020 ATTENDING PHYSICIAN: Dr. Eugene. SUBJECTIVE: Calm, no new complaints. OBJECTIVE FINDINGS: VITAL SIGNS: Blood pressure today is 152/84 mmHg, pulse 68 and regular, temperature 97.3 degrees Fahrenheit, oxygen saturation 96% on room air. HEENT: Head is without trauma. Pupils are reactive. Sclerae nonicteric. Oropharynx clear. NECK: Supple, no bruits. LUNGS: Good breath sounds. CARDIOVASCULAR: Showed regular heart tones. No gallops. ABDOMEN: Soft. EXTREMITIES: Without edema. NEUROLOGIC FINDINGS: Focally intact. He remains pleasantly confused. He is less agitated. ASSESSMENT: 1. A 65-year-old gentleman with [facility] with COVID-19 pneumonia. 2. Parkinson's disease. 3. Idiopathic seizure disorder. 4. Recurrent syncope with permanent pacemaker. 5. Profound dementia as delusional behavior is managed. PLAN: 1. Continue antibiotics ordered. 2. Psychotropic meds per Psychiatry. 3. Continue Sinemet. 4. Tentative plans are for keep him here through the weekend and readmit back to the [facility] next week. EMI KAMINSKI MD DR: CONSTANCE/stevo JOB#: [id number] / [id number]
[2020-05-28] MEDS: ENOXAPARIN 40 MG/0.4 ML SYRINGE. SQ SCH (17:44)
[2020-05-28 19:30] VITALS: BP 158/88
[2020-05-28] MEDS: QUEtiapine 100 MG TABLET. PO SCH (20:05)
[2020-05-28] MEDS: traZODone 100 MG TABLET. PO PRN (21:44)
[2020-05-29 03:42] LABS: BASO # 0.1 x10^3/uL (0.0-0.2); BASO % 0 % (0-3); EOS % 0 % (0-3); HEMATOCRIT 49.1 % (39.0-53.0); HEMOGLOBIN 16.4 g/dL (13.0-17.5); LYMPH # 1.4 x10^3/uL (1.0-4.8); LYMPH % 9 % (24-48); MEAN CORPUSCULAR HEMOGLOBIN 30 pg (25-35); MEAN CORPUSCULAR HGB CONC 33 g/dL (31-37); MEAN CORPUSCULAR VOLUME 89 fL (79-100); MONO % 7 % (0-9); NEUT # 12.1 x10^3uL (1.8-7.7); NEUT % 84 % (31-73); PLATELET COUNT 259 x10^3/uL (140-400); RED CELL DISTRIBUTION WIDTH 13.6 % (11.5-14.5); WHITE BLOOD COUNT 14.5 x10^3/uL (4.0-11.0)
[2020-05-29 03:58] LABS: ALBUMIN 3.8 g/dL (3.4-5.0); CALCIUM 9.1 mg/dL (8.5-10.1); CREATININE 0.8 mg/dL (0.7-1.3); TOTAL BILIRUBIN 0.6 mg/dL (0.2-1.0); TOTAL PROTEIN 7.5 g/dL (6.4-8.2)
--- NOTE | 2020-05-29 06:23 | NUR ---
Nursing note: Pt progressively more aggitated through shift. Pt given trazadone for sleep PRN per orders near beginning of shift, ativan x2 doses, and ODT zyprexa PRN per orders. Pt continuously attempting to exit bed, displayed verbal aggression toward staff members, and swatted/grabbed this RN multiple times at approx. 0445.
[2020-05-29 06:43] VITALS: BP 139/86
--- NOTE | 2020-05-29 09:23 | PN ---
DATE: 05/29/2020 ATTENDING PHYSICIAN: Dr. Eugene. SUBJECTIVE: Calm. He is sedated unfortunately from his psychiatric meds. He has no new complaints. He is not in any obvious distress. OBJECTIVE FINDINGS: VITAL SIGNS: Blood pressure this morning is 138/86, pulse was 78 and regular, temperature 96.8 degrees Fahrenheit, oxygen saturation 97% on room air. HEENT: Head is without trauma. Pupils are reactive. He has some torticollis. NECK: Strained. No stridor. LUNGS: Shallow respirations. CARDIOVASCULAR: Showed regular heart tones. No gallops. ABDOMEN: Soft. EXTREMITIES: Without edema. NEUROLOGIC: Profound confusion. ASSESSMENT: 1. A 65-year-old gentleman from the [facility] with COVID-19 pneumonia. 2. Advanced Parkinson's disease. 3. Idiopathic seizure disorder. 4. Recurrent syncope with permanent pacemaker. 5. Profound dementia with delusional behavior. PLAN: 1. Continue antibiotics as ordered. 2. Continue Sinemet. 3. Tentative plans for discharge back to the [facility] on Sunday. EMI KAMINSKI MD DR: CONSTANCE/steov JOB#: [id number] / [id number]
[2020-05-29] MEDS: DEXAMETHASONE SOD PHOS 10 MG/ML VIAL. IVP SCH (09:44)
[2020-05-29] MEDS: DOCUSATE SODIUM 100 MG CAPSULE PO SCH ×2 (11:24→21:51)
[2020-05-29] MEDS: CARBIDOPA/LEVODOPA 25/100MG TABLET PO SCH ×3 (11:24→21:51)
[2020-05-29] MEDS: AZITHROMYCIN 250 MG TABLET. PO SCH (11:24)
[2020-05-29] MEDS: QUEtiapine 25 MG TABLET. PO SCH ×3 (11:24→21:52)
[2020-05-29] MEDS: LACTOBACILLUS RHAMNOSUS GG 1 CAPSULE. PO SCH ×2 (11:24→21:51)
[2020-05-29] MEDS: levETIRAcetam 500 MG TABLET PO SCH ×2 (11:25→21:51)
[2020-05-29] MEDS: MIDODRINE 5 MG TABLET PO SCH ×3 (11:25→18:00)
[2020-05-29] MEDS: NEOMY/BACITR/POLYMYXIN OINT PACKET. TP SCH ×2 (12:16→21:52)
[2020-05-29] MEDS: PRAMIPEXOLE 0.25 MG TABLET. PO SCH ×2 (12:16→21:51)
[2020-05-29] MEDS: ENOXAPARIN 40 MG/0.4 ML SYRINGE. SQ SCH (16:30)
[2020-05-29 20:26] VITALS: BP 117/63
[2020-05-29] MEDS: QUEtiapine 100 MG TABLET. PO SCH (21:52)
[2020-05-29] MEDS: traZODone 100 MG TABLET. PO PRN (21:52)
[2020-05-30] MEDS: MIDODRINE 5 MG TABLET PO SCH ×3 (10:19→17:15)
[2020-05-30] MEDS: DOCUSATE SODIUM 100 MG CAPSULE PO SCH ×2 (10:19→20:51)
[2020-05-30] MEDS: CARBIDOPA/LEVODOPA 25/100MG TABLET PO SCH ×3 (10:19→20:51)
[2020-05-30] MEDS: levETIRAcetam 500 MG TABLET PO SCH ×2 (10:20→20:51)
[2020-05-30] MEDS: PRAMIPEXOLE 0.25 MG TABLET. PO SCH ×2 (10:20→20:51)
[2020-05-30] MEDS: QUEtiapine 25 MG TABLET. PO SCH ×3 (10:20→20:51)
[2020-05-30] MEDS: LACTOBACILLUS RHAMNOSUS GG 1 CAPSULE. PO SCH ×2 (10:20→20:52)
[2020-05-30] MEDS: DEXAMETHASONE SOD PHOS 10 MG/ML VIAL. IVP SCH (10:25)
[2020-05-30] MEDS: AZITHROMYCIN 250 MG TABLET. PO SCH (10:25)
[2020-05-30] MEDS: NEOMY/BACITR/POLYMYXIN OINT PACKET. TP SCH ×2 (10:25→20:51)
--- NOTE | 2020-05-30 11:10 | PN ---
DATE: 05/30/2020 ATTENDING PHYSICIAN: Dr. Eugene and Dr. Kaminski. SUBJECTIVE: No new complaints. He is semi-lethargic. He is not any obvious distress. OBJECTIVE FINDINGS: VITAL SIGNS: Blood pressure today is 117/63. He is afebrile. Oxygen saturation 98% on room air. HEENT: Head is without trauma. Pupils are reactive. Sclerae nonicteric. Oropharynx clear. NECK: Supple. LUNGS: Shallow respirations. CARDIOVASCULAR: Showed regular heart tones. ABDOMEN: Soft. EXTREMITIES: Without edema. NEUROLOGIC FINDINGS: Classic mask-like facies of Parkinson's disease. He is profoundly confused. I did review the serology regarding his coronavirus antibody status. Unfortunately, even the reference labs, I have put a disclaimer on the interpretation as they do not know the level of antibodies, which confers protective status. Therefore, the results are not very helpful. ASSESSMENT: 1. A 65-year-old gentleman from the [facility] with COVID-19 pneumonia. 2. Advanced Parkinson's disease. 3. Idiopathic seizure disorder. 4. Permanent pacemaker. 5. Profound dementia with delusional behavior. PLAN: 1. Finish antibiotics. 2. We are in the process of trying to get him situated back in the [facility]. 3. Continue Sinemet. EMI KAMINSKI MD DR: CONSTANCE/stevo JOB#: [id number] / [id number]
[2020-05-30] MEDS: OLANZapine IM 10 MG VIAL. IM PRN (15:36)
[2020-05-30] MEDS: ENOXAPARIN 40 MG/0.4 ML SYRINGE. SQ SCH (17:15)
[2020-05-30 19:00] VITALS: BP 128/74
[2020-05-30] MEDS: traZODone 100 MG TABLET. PO PRN (20:51)
[2020-05-30] MEDS: QUEtiapine 100 MG TABLET. PO SCH (20:51)
[2020-05-31] MEDS: PRAMIPEXOLE 0.25 MG TABLET. PO SCH (07:35)
[2020-05-31] MEDS: CARBIDOPA/LEVODOPA 25/100MG TABLET PO SCH (07:35)
[2020-05-31] MEDS: LACTOBACILLUS RHAMNOSUS GG 1 CAPSULE. PO SCH (07:35)
[2020-05-31] MEDS: DEXAMETHASONE SOD PHOS 10 MG/ML VIAL. IVP SCH (07:35)
[2020-05-31] MEDS: AZITHROMYCIN 250 MG TABLET. PO SCH (07:35)
[2020-05-31] MEDS: levETIRAcetam 500 MG TABLET PO SCH (07:35)
[2020-05-31] MEDS: QUEtiapine 25 MG TABLET. PO SCH (07:35)
[2020-05-31] MEDS: DOCUSATE SODIUM 100 MG CAPSULE PO SCH (07:35)
[2020-05-31] MEDS: MIDODRINE 5 MG TABLET PO SCH (07:36)
[2020-05-31 07:55] VITALS: BP 134/84
--- NOTE | 2020-05-31 09:57 | DS ---
DATE OF DISCHARGE: 05/31/2020 ATTENDING PHYSICIANS: Dr. Eugene and Dr. Kaminski. FINAL DISCHARGE DIAGNOSES: 1. COVID-19 pneumonia. 2. Advanced Parkinson's disease. 3. Idiopathic seizure disorder. 4. Permanent pacemaker. 5. Profound dementia with delusional behavior. HISTORY AND PHYSICAL: The patient is a 65-year-old gentleman we had seen on the [facility]. He had fevers and symptoms of pneumonia. He was indeed positive for COVID. On the day of admission, he had a chest x-ray, which showed mild airspace infiltrate in the left base. He was admitted to the medical floor for antibiotics and treatment. PHYSICAL EXAMINATION: Please see the dictated note. PERTINENT LABORATORY AND X-RAY STUDIES: On admission, his hemoglobin was maintained at 14.9 g/dL with white count of 8100. Chemistry panel stable BUN and creatinine, electrolytes. Nonfasting blood sugar 116. Creatinine 0.8 mg/dL. COURSE IN THE HOSPITAL: The patient was admitted. He had a mild infiltrate. He was treated with 11 days of intravenous antibiotics, Decadron and home meds were continued. He did well. He was stable. He did not require any supplemental oxygen. On the eleventh hospital day, his vital signs are stable. He is afebrile. He was ready for discharge back to the [facility]. Therefore, he is discharged back with no further antibiotics, he received 11 full days. He will continue all his psych meds unchanged, they include the following: He will continue his Sinemet, vitamin D3, docusate, Keppra, midodrine, Zyprexa Zydis, Mirapex, Seroquel and trazodone dose unchanged. No further antibiotics. The patient was then discharged from our hospital back to the [facility] in stable condition with explicit instructions and followup care. EMI KAMINSKI MD DR: CONSTANCE/stevo JOB#: [id number] / [id number] [facility]
--- NOTE | 2020-05-31 11:31 | NUR ---
Patient discharged to [facility]. pt is medically stable. medications sent with patient an report given to Anu BLANC on [facility].
[2020-05-31] MEDS ORDERED: QUET25TA5 PO (14:50)
--- NOTE | 2020-05-31 23:34 | PN ---
DATE: 05/26/2020 SUBJECTIVE: The patient continued to be lethargic. He does not have significant tremor of the arms or legs; however, he continues to have intermittent agitation and confusion throughout the day. OBJECTIVE: GENERAL: Well-developed, well-nourished male, not in acute distress. VITAL SIGNS: Blood pressure is 134/88, respiratory rate 20, pulse is 78, oxygen saturation is 98%, temperature 97.8. HEENT: Normocephalic, atraumatic, otherwise unremarkable. NECK: Supple. Negative for carotid bruit, lymphadenopathy or thyromegaly. LUNGS: Clear to A and P. CARDIOVASCULAR: Regular rate and rhythm. Normal S1, S2. ABDOMEN: Soft. EXTREMITIES: Negative for cyanosis, clubbing or edema. NEUROLOGIC EXAM: The patient is alert and oriented to himself. He does not follow any command this morning; however, he does not have any obvious resting tremor of the upper extremities. He is disoriented to place and time. He does not follow any verbal commands at this time. Therefore, his mental status evaluation is limited. Cranial nerves are grossly intact. No focal motor or sensory deficit. Deep tendon reflexes were symmetric and hypoactive with absent Achilles responses. Gait not tested. LABORATORY DATA: From 05/25/2020 revealed white blood cells of 14.4, hemoglobin is 15.9, hematocrit 47, platelet count 232,000. Chemistry from 05/25/2020 revealed sodium of 140, potassium 3.7, chloride 102, CO2 of 29, BUN 13, creatinine 0.9 and glucose 84. Liver enzymes are not elevated. IMPRESSION: 1. Parkinson's disease -- stable. 2. Positive COVID-19. 3. Multiple medical problems include seizure disorder of unknown etiology, probably traumatic. 4. History of syncope with pacemaker placement. 5. Behavior disturbance with intermittent agitation and hallucinations. 6. Recent pneumonias. RECOMMENDATIONS: 1. Continue with current medical management initiated by Dr. Rome. 2. Continue with psychiatric care initiated by Dr. Garnica. 3. We will continue with current medications for Parkinson's disease including carbidopa/levodopa 25/100 two tablets t.i.d. and Mirapex 0.5 b.i.d. M Enrike JONES MD DR: TAMRA/stevo JOB#: [id number] / [id number]
--- NOTE | 2020-05-31 23:43 | PN ---
DATE: 05/28/2020 SUBJECTIVE: The patient denies any new medical or neurological complaints; however, he has been more agitated and restless over the last 2 days. He was witnessed by nursing staff, having mild tremor of the upper extremities; however, during the interview, the patient did not demonstrate any tremor at this time. He eats and doing well. OBJECTIVE: GENERAL: Well-developed, well-nourished male, not in acute distress. VITAL SIGNS: Blood pressure is 152/84, respiratory rate 16, pulse is 68, temperature 97.3, oxygen saturation is 96% on room air. HEENT: Normocephalic, atraumatic, otherwise unremarkable. NECK: Supple. Negative for carotid bruit, lymphadenopathy or thyromegaly. LUNGS: Sounds clear to A and P. CARDIOVASCULAR: Regular rate and rhythm. Normal S1, S2. ABDOMEN: Soft. Bowel sounds positive. EXTREMITIES: Negative for cyanosis, clubbing or edema. NEUROLOGICAL EXAM: Mental Status: The patient is alert and oriented to himself. He follows 1-step commands. Cranial nerves are grossly intact. Motor examination, no resting tremor noted. The strength is 4/5 throughout. The patient has increased rigidity in the lower extremities. Sensory examination revealed normal pinprick and light touch senses. Deep tendon reflexes were symmetric and hypoactive with absent Achilles responses. Gait not tested. IMPRESSION: 1. Parkinson disease - Stable. 2. Seizure disorder. 3. Multiple medical problems include COVID-19 pneumonia, dementia, behavior disturbances, history of syncope, required pacemaker placement. RECOMMENDATIONS: 1. We will continue with current medical and psychiatric care. 2. Continue with anti-Parkinson's medications with carbidopa/levodopa and Mirapex. M Enrike JONES MD DR: TAMRA/stevo JOB#: [id number] / [id number]
--- NOTE | 2020-05-31 23:59 | PN ---
DATE: 05/31/2020 SUBJECTIVE: The patient denies any new medical neurological complaints. He has been in ICU for the last few days and he has been stable from neurologic standpoint; however, sometimes he has brief intermittent restlessness. OBJECTIVE: GENERAL: Well-developed, well-nourished male, not in acute distress. VITAL SIGNS: Blood pressure 134/84, respiratory rate is 16, pulse is 71, temperature 97.5, oxygen saturation 100% on room air. HEENT: Normocephalic, atraumatic, otherwise unremarkable. NECK: Supple. Negative for carotid bruit, lymphadenopathy or thyromegaly. LUNGS: Clear to A and P. CARDIOVASCULAR: Regular rate and rhythm, normal S1, S2. ABDOMEN: Soft. Bowel sounds positive. EXTREMITIES: Negative for cyanosis, clubbing or edema. NEUROLOGIC EXAM: The patient is alert to himself. Speech is slow, but no language dysfunction. Memory, judgment, and abstracting thinking are fair. The patient denies hallucination or delusion. Cranial nerves are grossly intact. No focal motor or sensory deficit. Deep tendon reflexes were symmetric and hypoactive without pathologic responses. Gait not tested. IMPRESSION: 1. COVID-19 pneumonia. 2. Parkinson disease, stable. 3. Multiple medical problems include seizure disorder, syncope with pacemaker placement, dementia with intermittent delusional and psychotic behavior as well. RECOMMENDATIONS: 1. We will continue with current psychiatric care. 2. The [facility]. 3. We will continue with current medical and psychiatric care and current medications for seizures including Keppra and medication for Parkinson disease including, carbidopa/levodopa 25/100 two tablets 3 times daily along with Mirapex. M Enrike JONES MD DR: TAMRA/stevo JOB#: [id number] / [id number]
== END 2020-05-31 11:30 | DRG 177 ==
LOC: 1 SOUTH 06:18 → UNDOADMIN 06:18 → 1 SOUTH 07:00 → ICU 05-27 09:38
PROVIDERS: ADMIT Internal Medicine; ATTEND Internal Medicine
DX: U07.1 COVID-19 (principal); J12.82 Pneumonia due to coronavirus disease 2019; F01.51 Vascular dementia, unspecified severity, with behavioral disturbance; F02.81 Dementia in other diseases classified elsewhere, unspecified severity, with behavioral disturbance; F32.9 Major depressive disorder, single episode, unspecified; F41.9 Anxiety disorder, unspecified; F63.9 Impulse disorder, unspecified; G20 Parkinson's disease; G40.909 Epilepsy, unspecified, not intractable, without status epilepticus; I25.10 Atherosclerotic heart disease of native coronary artery without angina pectoris; Z95.0 Presence of cardiac pacemaker; Z90.49 Acquired absence of other specified parts of digestive tract
CPT/HCPCS: 36415; 71045; 80053; 81001; 85025; 85027; 85379; 87040; J0696; J1100; J1650; J2060; J3490

== ENCOUNTER 2020-05-31 11:40 | Inpatient (IN) | payer MEDICARE, BC ==
[~2020-05-31] VITALS: Ht 185.4 cm; Wt 75.9 kg
--- NOTE | 2020-05-31 11:45 | NUR ---
Admission Note with Justification for Admission to [facility] Patient admitted to [facility] for protective oversight for emergency stabilization of acute psychiatric crisis. Pt admitted from: [facility] ICU Mode of arrival: wheelchair Accompanied By: [facility] Staff Precipitating behaviors that initiated intake and admission: agitated, verbally aggressive towards staff, impulsive, poor safety, grabbing/swatting at staff, angry, resists meds at times Description of failure of out patient attempts at stabilization in previous setting list behavior and medication trials: meds Behaviors and assessment findings upon admission: Pt is very disorganized, but pleasant and cooperative. He speaks in a whisper so it is difficult to understand/hear answers. Pt denies having any pain at time of assessment. Will continue to monitor. Plan: Admit for protective oversight for adjustment and stabilization of medications, behaviors and mood. Intense treatment regimen including groups, medication adjustments, therapy, consistent regimen for ADL's, self care, and sleep hygiene. Daily monitoring by Inpatient staff, Psychiatry, and Medical Physician.
[2020-05-31 13:14] VITALS: BP 105/67
[2020-05-31] MEDS ORDERED: MAG HYDROX/AL HYDROX/SIMETH 30 ML ORAL.SUSP PO PRN ×2 (13:45→14:30)
[2020-05-31] MEDS ORDERED: MAGNESIUM HYDROXIDE 2,400 MG/30 ML ORAL.SUSP. PO PRN (14:30)
[2020-05-31] MEDS ORDERED: ACETAMINOPHEN 325 MG TABLET PO PRN (14:30)
[2020-05-31] MEDS ORDERED: NON FORMULARY ITEM (Methyl Salicylate/Menthol (Analgesic Balm) 1 APP) TP PRN (14:30)
[2020-05-31] MEDS ORDERED: QUET25TA5 PO (14:50)
[2020-05-31] MEDS: MIDODRINE 5 MG TABLET PO SCH (17:20)
[2020-05-31] MEDS: CARBIDOPA/LEVODOPA 25/100MG TABLET PO SCH (19:46)
[2020-05-31] MEDS: PRAMIPEXOLE 0.25 MG TABLET. PO SCH (19:46)
[2020-05-31] MEDS: DOCUSATE SODIUM 100 MG CAPSULE PO SCH (19:46)
[2020-05-31] MEDS: traZODone 100 MG TABLET. PO PRN (19:46)
[2020-05-31] MEDS: QUEtiapine 100 MG TABLET. PO SCH (19:46)
[2020-05-31] MEDS: levETIRAcetam 500 MG TABLET PO SCH (19:47)
[2020-05-31] MEDS ORDERED: QUEtiapine 25 MG TABLET. PO SCH (21:00)
--- NOTE | 2020-05-31 21:30 | PDOC ---
Exam Note: Jason Note: Please also refer to the separate dictated note~for this date of service dictated separately.~Patient seen individually. Discussed the patient with Nursing staff reviewed the chart.~Reviewed interim history and current functioning. Reviewed vital signs,~Labs/ Radiology~and current medications noted below. Continue current treatment with the changes noted in the dictated addendum note Assessment: Vital Signs/I&O: Vital Signs Date Time Temp Pulse Resp B/P (MAP) Pulse Ox O2 Delivery O2 Flow Rate FiO2 05/31/20 17:20 57 105/67 05/31/20 13:14 97.9 20 99 Current Medications: Meds: Current Medications Medications (Trade) Dose Ordered Sig/Rik Route PRN Reason Start Time Stop Time Status Last Admin Dose Admin Carbidopa/Levodopa (Sinemet 25/100) 2 tab TID PO 05/31/20 21:00 05/31/20 19:46 Docusate Sodium (Colace) 100 mg BID PO 05/31/20 21:00 05/31/20 19:46 Levetiracetam (Keppra) 500 mg BID PO 05/31/20 21:00 05/31/20 19:47 Midodrine (Proamatine) 5 mg [id number] PO 05/31/20 18:00 05/31/20 17:20 Pramipexole Dihydrochloride (miraPEX) 0.25 mg BID PO 05/31/20 21:00 05/31/20 19:46 Quetiapine Fumarate (SEROquel) 100 mg QHS PO 05/31/20 21:00 05/31/20 19:46 Trazodone HCl (Desyrel) 100 mg PRN QHS PRN PO INSOMNIA 05/31/20 14:45 05/31/20 19:46 I have reviewed the current psychotropics carefully including drug interactions. Risk benefit ratio favors no change other than as noted in my dictated progress note. Diagnosis: Problems: (1) Impulse control disorder, unspecified (2) Anxiety disorder, unspecified (3) Major neurocognitive disorder due to Parkinson's disease with behavioral disturbance HAYLEY GUZMAN MD May 31, 2020 21:30
--- NOTE | 2020-05-31 22:25 | HP ---
ADMIT DATE: 05/31/2020 PSYCHIATRIC ADMISSION HISTORY/EVALUATION This note covers elements not covered in my initial note of 05/31/2020. IDENTIFYING DATA: The patient is a 65-year-old male referred back to us from the ICU after he was transitioned there from our unit on account of COVID positive status. The patient has been quarantined for the past 10 days. He remains asymptomatic and returns back to complete his psychiatric treatment. He was initially referred to us from [facility] where he presented from home where he lives with his . He was extremely agitated, delusional with visual hallucinations, thinking his was trying to kill him. He tried to run away during a blizzard and threatening to hit his and yelling out for help. Behaviors were deemed dangerous, unmanageable resulting in the initial referral to us. Once he was found COVID positive, he was transitioned to ICU. While in the ICU, he remains extremely agitated, verbally aggressive towards staff, impulsive with poor safety, grabbing, swatting at staff, angry, restless, resistive to medications. Also discussed with Yamilka Srivastava, acute coordinator. His behaviors were deemed dangerous, unmanageable resulting in this referral. CHIEF COMPLAINT: "No." HISTORY OF PRESENT ILLNESS: The patient has a history of dementia, multifactorial, possibly Lewy body, Alzheimer's, vascular with delusion, depression, behavioral disturbance. He also has a diagnosis of Parkinson disease, seizure disorder, pacemaker in place. He is having sleep and appetite changes, psychotic symptoms, worsening confusion, aggression and agitation. No clear history of bipolar disorder. PAST PSYCHIATRIC HISTORY: As above. MEDICAL HISTORY: As noted above, Parkinson disease, seizure disorder, pacemaker in place, recent COVID-19 pneumonia. ALLERGIES: Negative. CODE STATUS: Full code. DIET: Cardiac. ACCU-CHEKS: Not applicable. Ambulates with walker. CURRENT PSYCHOTROPICS: Zyprexa p.r.n., Seroquel 100 mg at bedtime and 25 mg 3 times a day, Mirapex 0.25 mg b.i.d., Keppra 500 b.i.d., trazodone 100 mg at bedtime p.r.n., may repeat x 1. FAMILY HISTORY: Noncontributory. SOCIAL HISTORY: The patient lives at home with his . No alcohol or drug abuse, physical, sexual or elder abuse history is noted. He is not known to be a perpetrator. REACTION TO HOSPITALIZATION: The patient oblivious of this. MENTAL STATUS EXAMINATION: The patient was seen individually on the evening of 05/31/2020. He is oriented to himself with poor eye contact. No CV, , pulmonary, eye, ENT system symptoms on review. Reliability poor. MENTAL STATUS EXAM: Oriented to himself. Insight, judgment, recent and remote memory, attention, concentration, fund of knowledge poor, consistent with his diagnosis. IMPRESSION: Major neurocognitive disorder, multifactorial, Lewy body with delusion, depression, behavioral disturbance; anxiety disorder, unspecified; impulse control disorder, unspecified; status post COVID-19 pneumonia. Rest unchanged from history noted above. PLAN: Admit to Geropsychiatry Unit at [facility]. I will see the patient daily individually from a psychiatric standpoint. Medical followup with Dr. Eugene/Dr. Rome. Continue the patient on his current psychotropics. Observe baseline, adjust as clinically indicated. ESTIMATED LENGTH OF STAY: 10-12 days. DISPOSITION: Plans possibly to nursing facility when stable. HAYLEY GUZMAN MD DR: SYL/stevo JOB#: [id number] / [id number]
--- NOTE | 2020-05-31 23:45 | NUR ---
Pt was restless and unsteady this evening. Pt placed in wheelchair with chair alarm. Staff 1:1 with pt during this time as pt was impulsive, trying to stand from wheelchair. Pt compliant with whole medications. A/O to name and . Once placed in bed, pt continued to be restless trying to get out of bed. PRN Trazodone and Zyprexa administered. Weighted blanket placed on pt. Pt currently asleep in bed with alarm on.
[2020-06-01 01:19] LABS: CLARITY,URINE CLOUDY; COLOR,URINE YELLOW
[2020-06-01 01:20] LABS: AMORPHOUS SEDIMENT,UR PRESENT /HPF; BACTERIA,URINE 0 /HPF (0-FEW); BILIRUBIN,URINE NEG (NEG); GLUCOSE,URINE NEG (NEG); NITRITE,URINE NEG (NEG); RBC,URINE 0 /HPF (0-2); UROBILINOGEN,URINE 0.2 mg/dL (0.2 mg/dL); WBC,URINE RARE /HPF (0-4)
[2020-06-01] MEDS: MIDODRINE 5 MG TABLET PO SCH ×3 (05:38→17:05)
[2020-06-01 06:17] VITALS: BP 134/83
[2020-06-01 06:31] LABS: BASO % 0 % (0-3); EOS # 0.1 x10^3/uL (0.0-0.7); EOS % 1 % (0-3); HEMOGLOBIN 15.6 g/dL (13.0-17.5); LYMPH # 2.2 x10^3/uL (1.0-4.8); LYMPH % 17 % (24-48); MEAN CORPUSCULAR HEMOGLOBIN 30 pg (25-35); MEAN CORPUSCULAR HGB CONC 34 g/dL (31-37); MEAN CORPUSCULAR VOLUME 88 fL (79-100); MONO # 1.3 x10^3/uL (0.0-1.1); MONO % 10 % (0-9); NEUT # 9.1 x10^3uL (1.8-7.7); NEUT % 72 % (31-73); PLATELET COUNT 241 x10^3/uL (140-400); RED BLOOD COUNT 5.21 x10^6/uL (4.30-5.70); RED CELL DISTRIBUTION WIDTH 13.6 % (11.5-14.5); WHITE BLOOD COUNT 12.7 x10^3/uL (4.0-11.0)
[2020-06-01 06:49] LABS: ALBUMIN 3.3 g/dL (3.4-5.0); CALCIUM 8.8 mg/dL (8.5-10.1); CREATININE 0.9 mg/dL (0.7-1.3); GFR 84.7; MAGNESIUM 2.1 mg/dL (1.8-2.4); POTASSIUM 3.8 mmol/L (3.5-5.1); TOTAL BILIRUBIN 0.6 mg/dL (0.2-1.0); TOTAL PROTEIN 6.5 g/dL (6.4-8.2)
[2020-06-01] MEDS: DOCUSATE SODIUM 100 MG CAPSULE PO SCH ×2 (08:03→20:56)
[2020-06-01] MEDS: PRAMIPEXOLE 0.25 MG TABLET. PO SCH ×2 (08:03→20:57)
[2020-06-01] MEDS: levETIRAcetam 500 MG TABLET PO SCH ×2 (08:03→20:58)
[2020-06-01] MEDS: CARBIDOPA/LEVODOPA 25/100MG TABLET PO SCH ×3 (08:03→20:56)
[2020-06-01] MEDS: QUEtiapine 25 MG TABLET. PO SCH ×3 (08:04→17:00)
--- NOTE | 2020-06-01 09:06 | NUR ---
PSYCHOSOCIAL ASSESSMENT ADMISSION DATE: 05/19/20 CONTACT INFORMATION: DPOA/Guardian Contact Name: Radha El (Rosie)- Contact Address: [address] [place] [id number] Contact Phone #: [phone] ETHNIC ORIGIN: REASONS FOR ADMISSION: Agitated Confusion/Disoriented Delusions Hallucinations ADDITIONAL ADMISSION COMMENTS: Per intake record, pt became agitated with his at home, experiencing delusions, visual hallucinations, thinks is trying to kill him, threatened to hit , yelled for help, rushed outside in blizzard, and is paranoid. REASON FOR ADMISSION IN PATIENT/FAMILY'S OWN WORDS: Per pt , "he has Parkinson's and has an appointment scheduled with Dr. Cabrales a neurologist at [facility] on 08/17/20. He has started to think that I am having affairs in front him. He has, also, been having hallucinations and has become increasingly agitated and threatening to hit me. He called me an inappropriate name at the hospital in front of the staff. This behavior is out of character for him and he is actually a very private person." PATIENT/FAMILY EXPECTATIONS FOR ADMISSION: Help pt get stabilized on medications until he can get established with Dr. Cabrales. LIVING SITUATION: Patient lives with: Spouse Other living arrangements: Contact Name: Faraz El (Steve) Contact [address]: [address] [place], [place] [address] [address] Contact Phone #: [phone] Contact Fax #: FAMILY RELATIONS: Marital Status: # of Marriages: 1 # of Children: 2 [facility] Family Support: Concerned Cooperative Involved in DC Planning Additional Comments r/t Family: Pt is to Radha El (Rosie). They have been for over 40 years. Pt and Ema have two daughters, Edna (38) and Jael "Jesus" (35). Edna has two children Breanne and Cj and Jesus has two children, as well, Griffin and Amado. Pts grandchildren are very dear to him and they call him Pop Pop. Pt was raised by both his mother and father in a loving and supportive home. SIGNIFICANT PSYCHIATRIC/MEDICAL HISTORY: Psychiatric/Treatment History: None Pertinent Family History: Pts father had bipolar and had several hospitalizations at the [place]. Pts sister is also Bipolar; unsure if treated. HISTORICAL DATA: Childhood Environment: [place] Nurturing Supportive Childhood Environment Additional Comments: Pt was one of six children. They didn't really have a lot of money, but the environment was described to be loving and nurturing. 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 service: N Confucianist background: Pt believes in God, but does not declare a denomination. Ema is Spiritism and raised their children as Spiritism, as well. Sexual orientation: Heterosexual Educational Level: Bachelors degree from [employer] in accounting. Past/Present Interests/Hobbies: Pt loves to watch sports, specifically [employer], [employer] basketball and football. His family and especially his grandchildren are his hobby. Financial support/resources: Shelter/Pension Monthly income: Unknown/Adequate Person handling finances: /DPDIEGO Ramsey" Do you have a history of legal problems: N Cultural considerations: None SOCIAL RELATIONSHIPS-CURRENT/PAST: Psychiatrist: None PCP: Dr. Trevino (p) [phone] Counselor/Therapist: None Veterans[employer] Administration: None Support Group: None Senior Linux Unix Engineer/Personal Financial Representative: None Other relationships: /DPDIEGO El (Rosie) STRENGTHS & WEAKNESSES: Patient's strengths: Good family support Good verbal skills Stable living arrange Financial support Strong relationships Education level Ambulatory Approachable Engaged Other patient strengths: Patient's weaknesses: Health problems Other Other patient weaknesses: onset of delusions and hallucinations related to Parkinson's PRELIMINARY PLAN OF TREATMENT: Preliminary plan: Dec. Hallucination/Delus Medication Stabilization Monitor Med Effects Control abnormal behavior Prevent Deterioration Dec. Outbursts Other preliminary treatment comments: While at [facility], pt will be encouraged to attend SW and recreational therapy groups. He will report any delusions or hallucinations to medical staff and report any side effects that he notices. DISCHARGE PLANNING: Discharge planning/disposition: Home Additional discharge needs identified: None at this time. Pt is scheduled with Dr. Cabrales on 08/17/20 and is encouraged to keep that appointment. ADDITIONAL INFORMATION: Other Pertinent Data: Pt will be contacted a couple times per week during pt stay. Addendum: 06/02/20 at 1338 by BRIGIDA ROSENBERG Admission date for this psychosocial assessment is 05/31/20.
[2020-06-01 15:47] VITALS: BP 153/81
--- NOTE | 2020-06-01 16:23 | NUR ---
Patient was in hallway eating at nurses station at time of assessment. Patient is alert and oriented to self only. He is cooperative but mostly confused and forgetful. Patient takes medications whole with no problems. Patient wanders most of the day but is easily re directed. No further complaints or concerns at this time.
--- NOTE | 2020-06-01 20:54 | PDOC ---
Exam Note: Jason Note: Please also refer to the separate dictated note~for this date of service dictated separately.~Patient seen individually. Discussed the patient with Nursing staff reviewed the chart.~Reviewed interim history and current functioning. Reviewed vital signs,~Labs/ Radiology~and current medications noted below. Continue current treatment with the changes noted in the dictated addendum note Assessment: Vital Signs/I&O: Vital Signs Date Time Temp Pulse Resp B/P (MAP) Pulse Ox O2 Delivery O2 Flow Rate FiO2 06/01/20 17:05 90 153/81 06/01/20 15:47 98.6 18 99 I & O 05/31/20 05/31/20 06/01/20 15:00 23:00 07:00 Intake Total 580 ml Balance 580 ml Labs: Laboratory Tests Test 06/01/20 05:58 White Blood Count 12.7 x10^3/uL (4.0-11.0) H Red Blood Count 5.21 x10^6/uL (4.30-5.70) Hemoglobin 15.6 g/dL (13.0-17.5) Hematocrit 46.0 % (39.0-53.0) Mean Corpuscular Volume 88 fL (79-100) Mean Corpuscular Hemoglobin 30 pg (25-35) Mean Corpuscular Hemoglobin Concent 34 g/dL (31-37) Red Cell Distribution Width 13.6 % (11.5-14.5) Platelet Count 241 x10^3/uL (140-400) Neutrophils (%) (Auto) 72 % (31-73) Lymphocytes (%) (Auto) 17 % (24-48) L Monocytes (%) (Auto) 10 % (0-9) H Eosinophils (%) (Auto) 1 % (0-3) Basophils (%) (Auto) 0 % (0-3) Neutrophils # (Auto) 9.1 x10^3uL (1.8-7.7) H Lymphocytes # (Auto) 2.2 x10^3/uL (1.0-4.8) Monocytes # (Auto) 1.3 x10^3/uL (0.0-1.1) H Eosinophils # (Auto) 0.1 x10^3/uL (0.0-0.7) Basophils # (Auto) 0.0 x10^3/uL (0.0-0.2) Sodium Level 139 mmol/L (136-145) Potassium Level 3.8 mmol/L (3.5-5.1) Chloride Level 104 mmol/L (98-107) Carbon Dioxide Level 25 mmol/L (21-32) Anion Gap 10 (6-14) Blood Urea Nitrogen 23 mg/dL (8-26) Creatinine 0.9 mg/dL (0.7-1.3) Estimated GFR (Cockcroft-Gault) 84.7 BUN/Creatinine Ratio 26 (6-20) H Glucose Level 94 mg/dL (70-99) Calcium Level 8.8 mg/dL (8.5-10.1) Magnesium Level 2.1 mg/dL (1.8-2.4) Total Bilirubin 0.6 mg/dL (0.2-1.0) Aspartate Amino Transferase (AST) 12 U/L (15-37) L Alanine Aminotransferase (ALT) 14 U/L (16-63) L Alkaline Phosphatase 76 U/L (46-116) Total Protein 6.5 g/dL (6.4-8.2) Albumin 3.3 g/dL (3.4-5.0) L Albumin/Globulin Ratio 1.0 (1.0-1.7) 25-Hydroxy Vitamin D Total 29.4 ng/mL (30-100) L Current Medications: Meds: Laboratory Tests Test 06/01/20 05:58 White Blood Count 12.7 x10^3/uL Red Blood Count 5.21 x10^6/uL Hemoglobin 15.6 g/dL Hematocrit 46.0 % Mean Corpuscular Volume 88 fL Mean Corpuscular Hemoglobin 30 pg Mean Corpuscular Hemoglobin Concent 34 g/dL Red Cell Distribution Width 13.6 % Platelet Count 241 x10^3/uL Neutrophils (%) (Auto) 72 % Lymphocytes (%) (Auto) 17 % Monocytes (%) (Auto) 10 % Eosinophils (%) (Auto) 1 % Basophils (%) (Auto) 0 % Neutrophils # (Auto) 9.1 x10^3uL Lymphocytes # (Auto) 2.2 x10^3/uL Monocytes # (Auto) 1.3 x10^3/uL Eosinophils # (Auto) 0.1 x10^3/uL Basophils # (Auto) 0.0 x10^3/uL Sodium Level 139 mmol/L Potassium Level 3.8 mmol/L Chloride Level 104 mmol/L Carbon Dioxide Level 25 mmol/L Anion Gap 10 Blood Urea Nitrogen 23 mg/dL Creatinine 0.9 mg/dL Estimated GFR (Cockcroft-Gault) 84.7 BUN/Creatinine Ratio 26 Glucose Level 94 mg/dL Calcium Level 8.8 mg/dL Magnesium Level 2.1 mg/dL Total Bilirubin 0.6 mg/dL Aspartate Amino Transf (AST/SGOT) 12 U/L Alanine Aminotransferase (ALT/SGPT) 14 U/L Alkaline Phosphatase 76 U/L Total Protein 6.5 g/dL Albumin 3.3 g/dL Albumin/Globulin Ratio 1.0 25-Hydroxy Vitamin D Total 29.4 ng/mL Current Medications Medications (Trade) Dose Ordered Sig/Rik Route PRN Reason Start Time Stop Time Status Last Admin Dose Admin Acetaminophen (Tylenol) 650 mg PRN Q6HRS PRN PO MILD PAIN / TEMP > 100.3'F 05/31/20 13:45 Multi-Ingredient Ointment (Analgesic [place]) 1 king PRN QID PRN TP MUSCLE PAIN 05/31/20 13:45 Al Hydroxide/Mg Hydroxide (Mylanta Plus Xs) 15 ml PRN AFTMEALHC PRN PO DYSPEPSIA 05/31/20 13:45 06/01/20 15:35 Magnesium Hydroxide (Milk Of Magnesia) 2,400 mg PRN QHS PRN PO CONSTIPATION 05/31/20 13:45 Acetaminophen (Tylenol) 650 mg PRN Q6HRS PRN PO MILD PAIN / TEMP > 100.3'F 05/31/20 14:30 UNV Carbidopa/Levodopa (Sinemet 25/100) 2 tab TID PO 05/31/20 21:00 06/01/20 14:10 Vitamin D (Vitamin D3) 50,000 unit WEEKLY PO 06/03/20 09:00 Docusate Sodium (Colace) 100 mg BID PO 05/31/20 21:00 06/01/20 08:03 Levetiracetam (Keppra) 500 mg BID PO 05/31/20 21:00 06/01/20 08:03 Al Hydroxide/Mg Hydroxide (Mylanta Plus Xs) 15 ml PRN AFTMEALHC PRN PO DYSPEPSIA 05/31/20 14:30 UNV Magnesium Hydroxide (Milk Of Magnesia) 2,400 mg PRN QHS PRN PO CONSTIPATION 05/31/20 14:30 UNV Midodrine (Proamatine) 5 mg [id number] PO 05/31/20 18:00 06/01/20 17:05 Pramipexole Dihydrochloride (miraPEX) 0.25 mg BID PO 05/31/20 21:00 06/01/20 08:03 Non-Formulary Medication (Methyl Salicylate/ Menthol (Analgesic [place])) 1 king PRN QID PRN TP MUSCLE PAIN 05/31/20 14:30 UNV Olanzapine (ZyPREXA ZYDIS) 2.5 mg PRN Q2HR PRN PO PSYCHOSIS 05/31/20 14:30 06/01/20 01:37 Quetiapine Fumarate (SEROquel) 100 mg QHS PO 05/31/20 21:00 05/31/20 19:46 Trazodone HCl (Desyrel) 100 mg PRN QHS PRN PO INSOMNIA 05/31/20 14:45 05/31/20 19:46 Quetiapine Fumarate (SEROquel) 25 mg TID PO 05/31/20 21:00 05/31/20 18:26 DC Quetiapine Fumarate (SEROquel) 25 mg 0900,1300,1700 PO 06/01/20 09:00 06/01/20 17:00 Mirtazapine (Remeron) 7.5 mg QHS PO 06/01/20 21:00 Current Medications Medications (Trade) Dose Ordered Sig/Rik Route PRN Reason Start Time Stop Time Status Last Admin Dose Admin Carbidopa/Levodopa (Sinemet 25/100) 2 tab TID PO 05/31/20 21:00 06/01/20 14:10 Docusate Sodium (Colace) 100 mg BID PO 05/31/20 21:00 06/01/20 08:03 Levetiracetam (Keppra) 500 mg BID PO 05/31/20 21:00 06/01/20 08:03 Pramipexole Dihydrochloride (miraPEX) 0.25 mg BID PO 05/31/20 21:00 06/01/20 08:03 Quetiapine Fumarate (SEROquel) 100 mg QHS PO 05/31/20 21:00 05/31/20 19:46 Quetiapine Fumarate (SEROquel) 25 mg 0900,1300,1700 PO 06/01/20 09:00 06/01/20 17:00 I have reviewed the current psychotropics carefully including drug interactions. Risk benefit ratio favors no change other than as noted in my dictated progress note. Diagnosis: Problems: (1) Impulse control disorder, unspecified (2) Anxiety disorder, unspecified (3) Dementia in Alzheimer's disease with delusions (4) Dementia in Alzheimer's disease with depression (5) Lewy body dementia with behavioral disturbance (6) Major neurocognitive disorder HAYLEY GUZMAN MD Jun 01, 2020 20:54
[2020-06-01] MEDS: QUEtiapine 100 MG TABLET. PO SCH (20:56)
[2020-06-01] MEDS: MIRTAZAPINE 7.5 MG TABLET. PO SCH (20:58)
--- NOTE | 2020-06-01 22:33 | NUR ---
Patient was in bed at the time of assessment. He was compliant with his HS medications, oriented to self only. Patient was trying to get out of the bed but was able to be verbally redirected. He has not been agitated or aggressive this shift.
--- NOTE | 2020-06-02 01:19 | NUR ---
Patient has been yelling out multiple times, but is asleep when checked by staff. He appears to be talking in his sleep. He has yelled "mom" several times and then was yelling "Wake up". Will continue to monitor.
[2020-06-02] MEDS: MAGNESIUM HYDROXIDE 2,400 MG/30 ML ORAL.SUSP. PO PRN (05:41)
[2020-06-02 05:56] VITALS: BP 145/81
[2020-06-02] MEDS: MIDODRINE 5 MG TABLET PO SCH ×3 (07:51→16:49)
[2020-06-02] MEDS: CARBIDOPA/LEVODOPA 25/100MG TABLET PO SCH ×3 (07:51→21:54)
[2020-06-02] MEDS: QUEtiapine 25 MG TABLET. PO SCH ×3 (07:51→16:44)
[2020-06-02] MEDS: DOCUSATE SODIUM 100 MG CAPSULE PO SCH ×2 (07:51→21:53)
[2020-06-02] MEDS: PRAMIPEXOLE 0.25 MG TABLET. PO SCH ×2 (07:51→21:54)
[2020-06-02] MEDS: levETIRAcetam 500 MG TABLET PO SCH ×3 (07:52→21:53)
--- NOTE | 2020-06-02 08:28 | PDOC ---
Exam Note: Jason Note: This note is a late entry for 06/01/2020 covers elements not covered in my initial note. Subjective: The patient was seen on telehealth rounds in the evening of 06/01/2020 with Lynsey BLANC, discussed and reviewed the chart. He slept 2-1/4 hours previous night. The patient remains confused, compliant with his medications. Review of Systems: Ambulation impaired. No CV, , pulmonary, eye, ENT system symptoms on review. Mental Status Exam: The patient is oriented to himself. Insight and judgment, recent and remote memory, attention and concentration, fund of knowledge is poor consistent with his diagnosis. Laboratory Data: Reviewed. 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 Anxiety disorder unspecified. Impulse control disorder unspecified. Plan: Start Remeron 7.5 mg p.o. h.s. for insomnia. Continue rest unchanged. Assessment: Vital Signs/I&O: Vital Signs Date Time Temp Pulse Resp B/P (MAP) Pulse Ox O2 Delivery O2 Flow Rate FiO2 06/02/20 07:51 81 145/81 06/02/20 05:56 98.3 16 98 I & O 06/01/20 06/01/20 06/02/20 15:00 23:00 07:00 Intake Total 440 ml 220 ml Balance 440 ml 220 ml Current Medications: Meds: Current Medications Medications (Trade) Dose Ordered Sig/Rik Route PRN Reason Start Time Stop Time Status Last Admin Dose Admin Acetaminophen (Tylenol) 650 mg PRN Q6HRS PRN PO MILD PAIN / TEMP > 100.3'F 05/31/20 13:45 Multi-Ingredient Ointment (Analgesic [place]) 1 king PRN QID PRN TP MUSCLE PAIN 05/31/20 13:45 Al Hydroxide/Mg Hydroxide (Mylanta Plus Xs) 15 ml PRN AFTMEALHC PRN PO DYSPEPSIA 05/31/20 13:45 06/01/20 15:35 Magnesium Hydroxide (Milk Of Magnesia) 2,400 mg PRN QHS PRN PO CONSTIPATION 05/31/20 13:45 06/02/20 05:41 Acetaminophen (Tylenol) 650 mg PRN Q6HRS PRN PO MILD PAIN / TEMP > 100.3'F 05/31/20 14:30 UNV Carbidopa/Levodopa (Sinemet 25/100) 2 tab TID PO 05/31/20 21:00 06/02/20 07:51 Vitamin D (Vitamin D3) 50,000 unit WEEKLY PO 06/03/20 09:00 Docusate Sodium (Colace) 100 mg BID PO 05/31/20 21:00 06/02/20 07:51 Levetiracetam (Keppra) 500 mg BID PO 05/31/20 21:00 06/02/20 07:52 Al Hydroxide/Mg Hydroxide (Mylanta Plus Xs) 15 ml PRN AFTMEALHC PRN PO DYSPEPSIA 05/31/20 14:30 UNV Magnesium Hydroxide (Milk Of Magnesia) 2,400 mg PRN QHS PRN PO CONSTIPATION 05/31/20 14:30 UNV Midodrine (Proamatine) 5 mg [id number] PO 05/31/20 18:00 06/02/20 07:51 Pramipexole Dihydrochloride (miraPEX) 0.25 mg BID PO 05/31/20 21:00 06/02/20 07:51 Non-Formulary Medication (Methyl Salicylate/ Menthol (Analgesic [place])) 1 king PRN QID PRN TP MUSCLE PAIN 05/31/20 14:30 UNV Olanzapine (ZyPREXA ZYDIS) 2.5 mg PRN Q2HR PRN PO PSYCHOSIS 05/31/20 14:30 06/01/20 01:37 Quetiapine Fumarate (SEROquel) 100 mg QHS PO 05/31/20 21:00 06/01/20 20:56 Trazodone HCl (Desyrel) 100 mg PRN QHS PRN PO INSOMNIA 05/31/20 14:45 05/31/20 19:46 Quetiapine Fumarate (SEROquel) 25 mg TID PO 05/31/20 21:00 05/31/20 18:26 DC Quetiapine Fumarate (SEROquel) 25 mg 0900,1300,1700 PO 06/01/20 09:00 06/02/20 07:51 Mirtazapine (Remeron) 7.5 mg QHS PO 06/01/20 21:00 06/01/20 20:58 Current Medications Medications (Trade) Dose Ordered Sig/Rik Route PRN Reason Start Time Stop Time Status Last Admin Dose Admin Quetiapine Fumarate (SEROquel) 25 mg 0900,1300,1700 PO 06/01/20 09:00 06/02/20 07:51 Mirtazapine (Remeron) 7.5 mg QHS PO 06/01/20 21:00 06/01/20 20:58 I have reviewed the current psychotropics carefully including drug interactions. Risk benefit ratio favors no change other than as noted in my dictated progress note. Diagnosis: Problems: (1) Impulse control disorder, unspecified (2) Anxiety disorder, unspecified (3) Major neurocognitive disorder due to Parkinson's disease with behavioral disturbance (4) Dementia in Alzheimer's disease with depression (5) Dementia in Alzheimer's disease with delusions (6) Lewy body dementia with behavioral disturbance (7) Major neurocognitive disorder HAYLEY GUZMAN MD Jun 02, 2020 08:28
--- NOTE | 2020-06-02 09:45 | NUR ---
ACTIVITY THERAPY ASSESSMENT completed based on notes, observation and interview. Pt was wandering towards the exit of [facility]. Pt was redirected by AT and the assessment was conducted in the hallway. Pt was calm, controlled and pleasantly confused during time of assessment. Pt was able to answer some orientation questions such as his name, date of , that he is and has two children. Pt was unable to identify his location or reason for admission. 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 Pt said that he likes sports, TV and coloring. Pt said that he likes riding in the boat with his family. Pt is occasionally inaudible at times. Per notes pt is very close with his family and he has a great support system. Pt also said that he came from home prior to admission. Pt said that he is able to see and hear well. AT asked pt if he felt any stress and pt said "a little bit." AT asked pt to explain why he was stressed and he said it was because of visiting this place. Pt said he ambulates well and nothing else interferes with physial activity. Pt occasionally stated something that was unrelated to questions topics. Pt was offered a magazine by AT which he accepted. Pt was redirected to sit down as he held the magazine in his hand. Initial goal aimed to increase time management and socialization skills. Pt will participate in at least one individual or group Activity Therapy session per week.
--- NOTE | 2020-06-02 10:34 | NUR ---
Pt has been quiet and reserved so far during shift; appropriate in behaviors and interactions. He does not speak much during assessment. He is complaint with assessment and medications. He's had brief periods of wandering on the unit including into other patient's rooms. At the time of this writing he is napping.
[2020-06-02 16:35] VITALS: BP 143/94
--- NOTE | 2020-06-02 20:59 | PDOC ---
Exam Note: Jason Note: Please also refer to the separate dictated note~for this date of service dictated separately.~Patient seen individually. Discussed the patient with Nursing staff reviewed the chart.~Reviewed interim history and current functioning. Reviewed vital signs,~Labs/ Radiology~and current medications noted below. Continue current treatment with the changes noted in the dictated addendum note Assessment: Vital Signs/I&O: Vital Signs Date Time Temp Pulse Resp B/P (MAP) Pulse Ox O2 Delivery O2 Flow Rate FiO2 06/02/20 16:49 102 143/94 06/02/20 16:35 98.6 20 99 I & O 06/01/20 06/01/20 06/02/20 15:00 23:00 07:00 Intake Total 440 ml 220 ml Balance 440 ml 220 ml Current Medications: Meds: Current Medications Medications (Trade) Dose Ordered Sig/Rik Route PRN Reason Start Time Stop Time Status Last Admin Dose Admin Acetaminophen (Tylenol) 650 mg PRN Q6HRS PRN PO MILD PAIN / TEMP > 100.3'F 05/31/20 13:45 Multi-Ingredient Ointment (Analgesic [place]) 1 king PRN QID PRN TP MUSCLE PAIN 05/31/20 13:45 Al Hydroxide/Mg Hydroxide (Mylanta Plus Xs) 15 ml PRN AFTMEALHC PRN PO DYSPEPSIA 05/31/20 13:45 06/01/20 15:35 Magnesium Hydroxide (Milk Of Magnesia) 2,400 mg PRN QHS PRN PO CONSTIPATION 05/31/20 13:45 06/02/20 05:41 Acetaminophen (Tylenol) 650 mg PRN Q6HRS PRN PO MILD PAIN / TEMP > 100.3'F 05/31/20 14:30 UNV Carbidopa/Levodopa (Sinemet 25/100) 2 tab TID PO 05/31/20 21:00 06/02/20 13:40 Vitamin D (Vitamin D3) 50,000 unit WEEKLY PO 06/03/20 09:00 Docusate Sodium (Colace) 100 mg BID PO 05/31/20 21:00 06/02/20 07:51 Levetiracetam (Keppra) 500 mg BID PO 05/31/20 21:00 06/02/20 07:52 Al Hydroxide/Mg Hydroxide (Mylanta Plus Xs) 15 ml PRN AFTMEALHC PRN PO DYSPEPSIA 05/31/20 14:30 UNV Magnesium Hydroxide (Milk Of Magnesia) 2,400 mg PRN QHS PRN PO CONSTIPATION 05/31/20 14:30 UNV Midodrine (Proamatine) 5 mg [id number] PO 05/31/20 18:00 06/02/20 16:49 Pramipexole Dihydrochloride (miraPEX) 0.25 mg BID PO 05/31/20 21:00 06/02/20 07:51 Non-Formulary Medication (Methyl Salicylate/ Menthol (Analgesic [place])) 1 king PRN QID PRN TP MUSCLE PAIN 05/31/20 14:30 UNV Olanzapine (ZyPREXA ZYDIS) 2.5 mg PRN Q2HR PRN PO PSYCHOSIS 05/31/20 14:30 06/01/20 01:37 Quetiapine Fumarate (SEROquel) 100 mg QHS PO 05/31/20 21:00 06/01/20 20:56 Trazodone HCl (Desyrel) 100 mg PRN QHS PRN PO INSOMNIA 05/31/20 14:45 05/31/20 19:46 Quetiapine Fumarate (SEROquel) 25 mg TID PO 05/31/20 21:00 05/31/20 18:26 DC Quetiapine Fumarate (SEROquel) 25 mg 0900,1300,1700 PO 06/01/20 09:00 06/02/20 16:44 Mirtazapine (Remeron) 7.5 mg QHS PO 06/01/20 21:00 06/01/20 20:58 Sertraline HCl (Zoloft) 25 mg DAILY PO 06/03/20 09:00 Current Medications Medications (Trade) Dose Ordered Sig/Rik Route PRN Reason Start Time Stop Time Status Last Admin Dose Admin Mirtazapine (Remeron) 7.5 mg QHS PO 06/01/20 21:00 06/01/20 20:58 I have reviewed the current psychotropics carefully including drug interactions. Risk benefit ratio favors no change other than as noted in my dictated progress note. Diagnosis: Problems: (1) Impulse control disorder, unspecified (2) Anxiety disorder, unspecified (3) Major neurocognitive disorder due to Parkinson's disease with behavioral disturbance (4) Dementia in Alzheimer's disease with depression (5) Dementia in Alzheimer's disease with delusions (6) Lewy body dementia with behavioral disturbance (7) Major neurocognitive disorder HAYLEY GUZMAN MD Jun 02, 2020 20:58
[2020-06-02] MEDS: MIRTAZAPINE 7.5 MG TABLET. PO SCH (21:53)
[2020-06-02] MEDS: QUEtiapine 100 MG TABLET. PO SCH (21:54)
--- NOTE | 2020-06-02 22:00 | NUR ---
Patient was wandering into peers rooms early in the shift, hard to redirect. Patient oriented only to himself and does not/cannot answer orientation questions appropriately. Patients called and talked to him on the phone, he seemed to follow some of the conversation. Patient went to bed at 1999 and has been sleeping soundly since that time. He is sleeping in a semi upright position and has stiff posture.
[2020-06-03 05:31] VITALS: BP 154/74
[2020-06-03] MEDS: MIDODRINE 5 MG TABLET PO SCH ×3 (05:50→16:46)
[2020-06-03] MEDS: QUEtiapine 25 MG TABLET. PO SCH ×3 (07:52→16:45)
[2020-06-03] MEDS: DOCUSATE SODIUM 100 MG CAPSULE PO SCH ×2 (07:52→19:59)
[2020-06-03] MEDS: CARBIDOPA/LEVODOPA 25/100MG TABLET PO SCH ×3 (07:52→19:59)
[2020-06-03] MEDS: CHOLECALCIFEROL (VITAMIN D3) 50,000 UNIT CAPSULE PO SCH (07:53)
[2020-06-03] MEDS: SERTRALINE 25 MG TABLET. PO SCH (07:53)
[2020-06-03] MEDS: PRAMIPEXOLE 0.25 MG TABLET. PO SCH ×2 (07:53→19:59)
[2020-06-03] MEDS: levETIRAcetam 500 MG TABLET PO SCH ×2 (07:53→19:59)
--- NOTE | 2020-06-03 08:01 | PDOC ---
Exam Note: Jason Note: This note is a late entry for 06/02/2020 covers elements not covered in my initial note. Subjective: The patient was seen face to face in the evening of 06/02/2020 with Germania BLANC, discussed and reviewed the chart. He slept 5-1/4 hours previous night. The patient has been restless in bed, yelling at times in his sleep. He is confused, wandering into the room of other patients, relatively non-verbal. Review of Systems: No CV, , pulmonary, eye, ENT system symptoms on review. Mental Status Exam: The patient is oriented to himself. Insight and judgment, recent and remote memory, attention and concentration, fund of knowledge is poor consistent with his diagnosis. Laboratory Data: Reviewed. 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 Anxiety disorder unspecified. Impulse control disorder unspecified. Plan: Start Zoloft 25 mg a day as an antidepressant and anti-anxiety agent. Rest of the psychotropics unchanged. We will adjust further as clinically indicated. Assessment: Vital Signs/I&O: Vital Signs Date Time Temp Pulse Resp B/P (MAP) Pulse Ox O2 Delivery O2 Flow Rate FiO2 06/03/20 05:50 88 154/74 06/03/20 05:31 97.4 20 96 I & O 06/02/20 06/02/20 06/03/20 15:00 23:00 07:00 Intake Total 680 ml 360 ml Balance 680 ml 360 ml Current Medications: Meds: Current Medications Medications (Trade) Dose Ordered Sig/Rik Route PRN Reason Start Time Stop Time Status Last Admin Dose Admin Acetaminophen (Tylenol) 650 mg PRN Q6HRS PRN PO MILD PAIN / TEMP > 100.3'F 05/31/20 13:45 Multi-Ingredient Ointment (Analgesic [place]) 1 king PRN QID PRN TP MUSCLE PAIN 05/31/20 13:45 Al Hydroxide/Mg Hydroxide (Mylanta Plus Xs) 15 ml PRN AFTMEALHC PRN PO DYSPEPSIA 05/31/20 13:45 06/01/20 15:35 Magnesium Hydroxide (Milk Of Magnesia) 2,400 mg PRN QHS PRN PO CONSTIPATION 05/31/20 13:45 06/02/20 05:41 Acetaminophen (Tylenol) 650 mg PRN Q6HRS PRN PO MILD PAIN / TEMP > 100.3'F 05/31/20 14:30 UNV Carbidopa/Levodopa (Sinemet 25/100) 2 tab TID PO 05/31/20 21:00 06/03/20 07:52 Vitamin D (Vitamin D3) 50,000 unit WEEKLY PO 06/03/20 09:00 06/03/20 07:53 Docusate Sodium (Colace) 100 mg BID PO 05/31/20 21:00 06/03/20 07:52 Levetiracetam (Keppra) 500 mg BID PO 05/31/20 21:00 06/03/20 07:53 Al Hydroxide/Mg Hydroxide (Mylanta Plus Xs) 15 ml PRN AFTMEALHC PRN PO DYSPEPSIA 05/31/20 14:30 UNV Magnesium Hydroxide (Milk Of Magnesia) 2,400 mg PRN QHS PRN PO CONSTIPATION 05/31/20 14:30 UNV Midodrine (Proamatine) 5 mg [id number] PO 05/31/20 18:00 06/02/20 16:49 Pramipexole Dihydrochloride (miraPEX) 0.25 mg BID PO 05/31/20 21:00 06/03/20 07:53 Non-Formulary Medication (Methyl Salicylate/ Menthol (Analgesic [place])) 1 king PRN QID PRN TP MUSCLE PAIN 05/31/20 14:30 UNV Olanzapine (ZyPREXA ZYDIS) 2.5 mg PRN Q2HR PRN PO PSYCHOSIS 05/31/20 14:30 06/01/20 01:37 Quetiapine Fumarate (SEROquel) 100 mg QHS PO 05/31/20 21:00 06/02/20 21:54 Trazodone HCl (Desyrel) 100 mg PRN QHS PRN PO INSOMNIA 05/31/20 14:45 05/31/20 19:46 Quetiapine Fumarate (SEROquel) 25 mg TID PO 05/31/20 21:00 05/31/20 18:26 DC Quetiapine Fumarate (SEROquel) 25 mg 0900,1300,1700 PO 06/01/20 09:00 06/03/20 07:52 Mirtazapine (Remeron) 7.5 mg QHS PO 06/01/20 21:00 06/02/20 21:53 Sertraline HCl (Zoloft) 25 mg DAILY PO 06/03/20 09:00 06/03/20 07:53 Current Medications Medications (Trade) Dose Ordered Sig/Rik Route PRN Reason Start Time Stop Time Status Last Admin Dose Admin Vitamin D (Vitamin D3) 50,000 unit WEEKLY PO 06/03/20 09:00 06/03/20 07:53 Sertraline HCl (Zoloft) 25 mg DAILY PO 06/03/20 09:00 06/03/20 07:53 I have reviewed the current psychotropics carefully including drug interactions. Risk benefit ratio favors no change other than as noted in my dictated progress note. 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
--- NOTE | 2020-06-03 10:09 | NUR ---
WEEKLY ACTIVITY THERAPY NOTE Date of Admission: 05/31/2020 Date of AT Assessment: 06/02/20 Precipitating behaviors that initiated intake and admission: agitated, verbally aggressive towards staff, impulsive, poor safety, grabbing/swatting at staff, angry, resists meds at times Goal aimed: increase time management and socialization skills Initial Goal: Pt will participate in at least one individual or group Activity Therapy session per week. Weekly progress towards goal: achieved 04/23 Group participation level: 1 mod in group Weekly highlights: Moderate group on Sunday afternoon: described Youssef's day, directly prompted to answer most questions. Pt was able to answer a couple of the salBid Nerdl questions independently. Pt could not determine a love song of his choice. Behaviors observed: slouch in posture makes poor eye contact , slowly walks around room, short term memory deficits/confusion, assistance needed to get to his restroom, wanders into other's rooms, slow and quiet speech Plan: no change to goal Beneficial adaptations:
--- NOTE | 2020-06-03 15:01 | NUR ---
Pt complaint with medications and is appropriate in behaviors. Early in the morning he was more verbal; stating he was tired during morning assessment and wanting to go back to sleep. More towards the afternoon he has become less verbal. He has had multiple periods of wandering around the unit and going into other pt's rooms which have required staff intervention. He is alert to self and only. Will pass to the next shift.
[2020-06-03 15:22] VITALS: BP 155/97
--- NOTE | 2020-06-03 15:43 | TX PLAN ---
Interdisciplinary Tx Plan Admission Information May 31, 2020 at 11:40 Legal Status (on Admission): Voluntary DPOA/Guardian Name: Radha El (Rosie)- Contact Other Contact Name: Faraz El (Steve) Other Contact Verified Code Status: Full Code Allergies: Coded Allergies: No Known Drug Allergies (Unverified , 05/19/20) Diagnoses Primary Diagnosis: (1) Impulse control disorder, unspecified (2) Anxiety disorder, unspecified (3) Major neurocognitive disorder due to Parkinson's disease with behavioral disturbance (4) Dementia in Alzheimer's disease with depression (5) Dementia in Alzheimer's disease with delusions (6) Lewy body dementia with behavioral disturbance (7) Major neurocognitive disorder Reasons for Admission: Delusions, Agitated, Hallucinations, Confusion/Disoriented Problem in Patient's Words: Per pt , "he has parkinson's and has an appointment scheduled with Dr. Keron barry neurologist at [facility] on 08/17[facility]20. He has started to see things or hear things that aren't there. He was thinking that I was having affairs in front of him. He was becoming increasingly agitated and had even threatened to hit me. In front of hospital staff, he had called me an inappropriate name. These behaviors have come on all of the sudden within the past couple of months." Additional Admission Comments: Per intake record, pt became agitated with his at home, experiencing delusions, visual hallucinations, thinks his is trying to kill him, threatened to hit , yelling for help, rushed outside in a blizzard, and is paranoid. Problems Active Problems: Hallucinations, delusions, agitation Inactive Problems: None Pt Strengths/Limitations Ability for [place]: Poor Cognitive Functioning/Ability: Fair Communication Skills/Ability: Good Financial Resources: Good Insight/Judgement: Poor Intellectual Ability: Good Physical Health: Fair Social Skills: Good Stability in Family: Good Stability in School/Work: Good Verbal Skills: Good Discharge Criteria Discharge Criteria: No need for close observ., Able to meet health needs, Adequate arrangements @DC, Adequate self-care, Verbal commit med comply, Improved behavior, Improved mood/thought Other Discharge Comments: None at this time Preliminary Discharge Plan Preliminary DC Plan: Home Special Precautions Special Precautions: Agitation/Assault Fall Risk: Moderate Initial D/C Plan Plan is return home wtbritney bass. Identified Discharge Needs: Pt is scheduled with Dr. Cabrales on 08/17/20 and is encouraged to keep that appointment. Currently Utilized Resources Currently Utilized Resources/P: PCP is Dr. Trevino /DPOA is Radha "Ema"Omare Neurologist is Dr. Cabrales Referrals Community Resources: None noted at this time. Identified Problems/Hx/Goals Objectives/Short-Term Goals Short Term Goals: Control abnormal behavior, Dec. Hallucination/Delus, Dec. Outbursts, Medication Stabilization, Monitor Med Effects, Prevent Deterioration Short Term Goals in Patient's: "Have medications be looked at, monitored, and stablized until we can get into our appointment on 08/17/[address] Cabrales. Interventions/Frequency Staff Interventions/Frequency&: Psychiatry to assess pt three times per week for medication management. Nursing to assess behaviors, monitor medications, and complete 15 minute checks daily. Social work to see pt at least twice weekly to aid in return home. Activities to encourage pt to participate in group activities daily. 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 Education: Bachelors degree from [employer] in accounting. Community Follow-up PCP Neurologist Community Provider/Family Inpu: /DPOA, Ema, provided input at treatment team meeting and gave insight to behaviors noticed, history of medications, and upcoming appt with Dr. Cabrales. Treatment Plan Explained Patient/Claim Administrator had this treatment plan explained to him/her as indicated by the signature below and has been given the opportunity to ask questions and make suggestions: Date: Patient/Claim Administrator Signature: BRIGIDA POWER Jun 03, 2020 15:43
[2020-06-03] MEDS: MIRTAZAPINE 7.5 MG TABLET. PO SCH (19:59)
[2020-06-03] MEDS: QUEtiapine 100 MG TABLET. PO SCH (19:59)
--- NOTE | 2020-06-03 21:02 | PDOC ---
Exam Note: Jason Note: Please also refer to the separate dictated note~for this date of service dictated separately.~Patient seen individually. Discussed the patient with Nursing staff reviewed the chart.~Reviewed interim history and current functioning. Reviewed vital signs,~Labs/ Radiology~and current medications noted below. Continue current treatment with the changes noted in the dictated addendum note Assessment: Vital Signs/I&O: Vital Signs Date Time Temp Pulse Resp B/P (MAP) Pulse Ox O2 Delivery O2 Flow Rate FiO2 06/03/20 16:46 98 155/97 06/03/20 15:22 97.9 18 97 Room Air I & O 06/02/20 06/02/20 06/03/20 15:00 23:00 07:00 Intake Total 680 ml 360 ml Balance 680 ml 360 ml Current Medications: Meds: Current Medications Medications (Trade) Dose Ordered Sig/Rik Route PRN Reason Start Time Stop Time Status Last Admin Dose Admin Acetaminophen (Tylenol) 650 mg PRN Q6HRS PRN PO MILD PAIN / TEMP > 100.3'F 05/31/20 13:45 Multi-Ingredient Ointment (Analgesic [place]) 1 king PRN QID PRN TP MUSCLE PAIN 05/31/20 13:45 Al Hydroxide/Mg Hydroxide (Mylanta Plus Xs) 15 ml PRN AFTMEALHC PRN PO DYSPEPSIA 05/31/20 13:45 06/01/20 15:35 Magnesium Hydroxide (Milk Of Magnesia) 2,400 mg PRN QHS PRN PO CONSTIPATION 05/31/20 13:45 06/02/20 05:41 Acetaminophen (Tylenol) 650 mg PRN Q6HRS PRN PO MILD PAIN / TEMP > 100.3'F 05/31/20 14:30 UNV Carbidopa/Levodopa (Sinemet 25/100) 2 tab TID PO 05/31/20 21:00 06/03/20 19:59 Vitamin D (Vitamin D3) 50,000 unit WEEKLY PO 06/03/20 09:00 06/03/20 07:53 Docusate Sodium (Colace) 100 mg BID PO 05/31/20 21:00 06/03/20 19:59 Levetiracetam (Keppra) 500 mg BID PO 05/31/20 21:00 06/03/20 19:59 Al Hydroxide/Mg Hydroxide (Mylanta Plus Xs) 15 ml PRN AFTMEALHC PRN PO DYSPEPSIA 05/31/20 14:30 UNV Magnesium Hydroxide (Milk Of Magnesia) 2,400 mg PRN QHS PRN PO CONSTIPATION 05/31/20 14:30 UNV Midodrine (Proamatine) 5 mg [id number] PO 05/31/20 18:00 06/03/20 16:46 Pramipexole Dihydrochloride (miraPEX) 0.25 mg BID PO 05/31/20 21:00 06/03/20 19:59 Non-Formulary Medication (Methyl Salicylate/ Menthol (Analgesic [place])) 1 king PRN QID PRN TP MUSCLE PAIN 05/31/20 14:30 UNV Olanzapine (ZyPREXA ZYDIS) 2.5 mg PRN Q2HR PRN PO PSYCHOSIS 05/31/20 14:30 06/01/20 01:37 Quetiapine Fumarate (SEROquel) 100 mg QHS PO 05/31/20 21:00 06/03/20 19:59 Trazodone HCl (Desyrel) 100 mg PRN QHS PRN PO INSOMNIA 05/31/20 14:45 05/31/20 19:46 Quetiapine Fumarate (SEROquel) 25 mg TID PO 05/31/20 21:00 05/31/20 18:26 DC Quetiapine Fumarate (SEROquel) 25 mg 0900,1300,1700 PO 06/01/20 09:00 06/03/20 16:45 Mirtazapine (Remeron) 7.5 mg QHS PO 06/01/20 21:00 06/03/20 19:59 Sertraline HCl (Zoloft) 25 mg DAILY PO 06/03/20 09:00 06/03/20 07:53 Current Medications Medications (Trade) Dose Ordered Sig/Rik Route PRN Reason Start Time Stop Time Status Last Admin Dose Admin Vitamin D (Vitamin D3) 50,000 unit WEEKLY PO 06/03/20 09:00 06/03/20 07:53 Sertraline HCl (Zoloft) 25 mg DAILY PO 06/03/20 09:00 06/03/20 07:53 I have reviewed the current psychotropics carefully including drug interactions. Risk benefit ratio favors no change other than as noted in my dictated progress note. Diagnosis: Problems: (1) Impulse control disorder, unspecified (2) Anxiety disorder, unspecified (3) Dementia in Alzheimer's disease with depression (4) Dementia in Alzheimer's disease with delusions (5) Lewy body dementia with behavioral disturbance (6) Major neurocognitive disorder HAYLEY GUZMAN MD Jun 03, 2020 21:02
--- NOTE | 2020-06-03 21:28 | NUR ---
Nursing Note: Pt sitting quietly in his room at shift change. Pt A/O to self, , and aware he is in the hospital. Pt calm, pleasant, and interactive when approached. Pt cooperative with assessment and compliant with medications administered whole.
[2020-06-04 05:47] VITALS: BP 138/85
[2020-06-04] MEDS: MIDODRINE 5 MG TABLET PO SCH ×3 (05:52→18:00)
--- NOTE | 2020-06-04 06:35 | EKG ---
[address] [address] Test Date: 2020-06-01 Test Time: 11:32:19 Pat Name: CARL OLMOS Department: Room: [address] [place] [address] Gender: M Medicare Biller: : 1955 Requested By: HAYLEY GUZMAN Order Number: [id number] Reading MD: Measurements Intervals [place] Rate: P: FL: QRS: QRSD: T: QT: QTc: Interpretive Statements
[2020-06-04] MEDS: CARBIDOPA/LEVODOPA 25/100MG TABLET PO SCH ×3 (09:56→19:42)
[2020-06-04] MEDS: SERTRALINE 25 MG TABLET. PO SCH (09:56)
[2020-06-04] MEDS: levETIRAcetam 500 MG TABLET PO SCH ×2 (09:56→19:42)
[2020-06-04] MEDS: DOCUSATE SODIUM 100 MG CAPSULE PO SCH ×2 (09:56→19:42)
[2020-06-04] MEDS: QUEtiapine 25 MG TABLET. PO SCH ×3 (09:56→17:00)
[2020-06-04] MEDS: PRAMIPEXOLE 0.25 MG TABLET. PO SCH ×2 (09:56→19:42)
--- NOTE | 2020-06-04 11:32 | NUR ---
Patient at end of lazcano with PT/OT at time of assessment. Patient takes medications whole with no problems. He has no complaints at this time. He is cooperative and calm. Patient is still weak on his feet and should be monitored when walking. No further concerns at this time.
--- NOTE | 2020-06-04 13:57 | NUR ---
patient B/P 125/87 P 83. Midodrine held. KG
[2020-06-04 16:17] VITALS: BP 144/91
[2020-06-04] MEDS: MIRTAZAPINE 7.5 MG TABLET. PO SCH (19:42)
[2020-06-04] MEDS: QUEtiapine 100 MG TABLET. PO SCH (19:42)
--- NOTE | 2020-06-04 21:16 | NUR ---
Nursing Note: Pt wandering in hallway at shift change. Pt calm, disorganized, and confused. Pt cooperative with assessment and compliant with medications administered whole.
[2020-06-05 05:26] VITALS: BP 144/80
[2020-06-05] MEDS: MIDODRINE 5 MG TABLET PO SCH ×3 (05:36→17:27)
[2020-06-05] MEDS: CARBIDOPA/LEVODOPA 25/100MG TABLET PO SCH ×3 (09:40→20:49)
[2020-06-05] MEDS: PRAMIPEXOLE 0.25 MG TABLET. PO SCH ×2 (09:40→20:50)
[2020-06-05] MEDS: DOCUSATE SODIUM 100 MG CAPSULE PO SCH ×2 (09:40→20:49)
[2020-06-05] MEDS: SERTRALINE 25 MG TABLET. PO SCH (09:40)
[2020-06-05] MEDS: levETIRAcetam 500 MG TABLET PO SCH ×2 (09:40→20:49)
[2020-06-05] MEDS: QUEtiapine 25 MG TABLET. PO SCH ×3 (09:40→17:27)
--- NOTE | 2020-06-05 11:37 | NUR ---
Pt is calm, cooperative, and compliant. No agitation, no aggression, no hallucinations, no delusions. He is compliant with his medication and assessment.
[2020-06-05 12:48] VITALS: BP 122/78
[2020-06-05 15:44] VITALS: BP 108/72
[2020-06-05] MEDS: ACETAMINOPHEN 325 MG TABLET PO PRN (16:01)
--- NOTE | 2020-06-05 16:12 | NUR ---
Pt is wandering, door checking and exit seeking. He is stating "I need to go outside." This was causing other pts to follow him and door check check as well. PRN ulisses montano given and [facility] to [facility] for de[facility]calation.
[2020-06-05] MEDS: traZODone 100 MG TABLET. PO PRN (20:49)
[2020-06-05] MEDS: QUEtiapine 100 MG TABLET. PO SCH (20:49)
[2020-06-05] MEDS: MIRTAZAPINE 15 MG TABLET PO SCH (20:51)
--- NOTE | 2020-06-05 21:16 | PDOC ---
Exam Note: Jason Note: Late entry for 06/04/2020. Please also refer to the separate dictated note~for this date of service dictated separately.~Patient seen individually. Discussed the patient with Nursing staff reviewed the chart.~Reviewed interim history and current functioning. Reviewed vital signs,~Labs/ Radiology~and current medic ations noted below. Continue current treatment with the changes noted in the dictated addendum note Assessment: Vital Signs/I&O: Vital Signs Date Time Temp Pulse Resp B/P (MAP) Pulse Ox O2 Delivery O2 Flow Rate FiO2 06/05/20 17:27 83 108/72 06/05/20 15:44 97.6 18 97 06/05/20 05:26 Room Air I & O 06/04/20 06/04/20 06/05/20 15:00 23:00 07:00 Intake Total 360 ml 360 ml Balance 360 ml 360 ml Current Medications: Meds: Current Medications Medications (Trade) Dose Ordered Sig/Rik Route PRN Reason Start Time Stop Time Status Last Admin Dose Admin Mirtazapine (Remeron) 15 mg QHS PO 06/05/20 21:00 06/05/20 20:51 I have reviewed the current psychotropics carefully including drug interactions. Risk benefit ratio favors no change other than as noted in my dictated progress note. Diagnosis: Problems: (1) Impulse control disorder, unspecified (2) Anxiety disorder, unspecified (3) Dementia in Alzheimer's disease with depression (4) Dementia in Alzheimer's disease with delusions (5) Lewy body dementia with behavioral disturbance (6) Major neurocognitive disorder HAYLEY GUZMAN MD Jun 05, 2020 21:16
--- NOTE | 2020-06-05 21:16 | PDOC ---
Exam Note: Jason Note: Please also refer to the separate dictated note~for this date of service dictated separately.~Patient seen individually. Discussed the patient with Nursing staff reviewed the chart.~Reviewed interim history and current functioning. Reviewed vital signs,~Labs/ Radiology~and current medications noted below. Continue current treatment with the changes noted in the dictated addendum note Assessment: Vital Signs/I&O: Vital Signs Date Time Temp Pulse Resp B/P (MAP) Pulse Ox O2 Delivery O2 Flow Rate FiO2 06/05/20 17:27 83 108/72 06/05/20 15:44 97.6 18 97 06/05/20 05:26 Room Air I & O 06/04/20 06/04/20 06/05/20 15:00 23:00 07:00 Intake Total 360 ml 360 ml Balance 360 ml 360 ml Current Medications: Meds: Current Medications Medications (Trade) Dose Ordered Sig/Rik Route PRN Reason Start Time Stop Time Status Last Admin Dose Admin Mirtazapine (Remeron) 15 mg QHS PO 06/05/20 21:00 06/05/20 20:51 I have reviewed the current psychotropics carefully including drug interactions. Risk benefit ratio favors no change other than as noted in my dictated progress note. Diagnosis: Problems: (1) Impulse control disorder, unspecified (2) Anxiety disorder, unspecified (3) Dementia in Alzheimer's disease with depression (4) Dementia in Alzheimer's disease with delusions (5) Lewy body dementia with behavioral disturbance (6) Major neurocognitive disorder HAYLEY GUZMAN MD Jun 05, 2020 21:16
--- NOTE | 2020-06-06 01:07 | NUR ---
Nursing Note: Pt wandering the halls in his brief. Pt escorted back to his room and dressed. Pt repeatedly removing his clothes. Pt placed in onesie. Pt calm and compliant with medications/assessment. Pt currently sleeping in bed at this time.
[2020-06-06] MEDS: MIDODRINE 5 MG TABLET PO SCH ×3 (05:51→17:28)
[2020-06-06 06:21] VITALS: BP 117/77
[2020-06-06] MEDS: QUEtiapine 25 MG TABLET. PO SCH ×3 (09:07→17:28)
[2020-06-06] MEDS: PRAMIPEXOLE 0.25 MG TABLET. PO SCH ×2 (09:07→20:33)
[2020-06-06] MEDS: DOCUSATE SODIUM 100 MG CAPSULE PO SCH ×2 (09:07→20:33)
[2020-06-06] MEDS: levETIRAcetam 500 MG TABLET PO SCH ×2 (09:07→20:32)
[2020-06-06] MEDS: CARBIDOPA/LEVODOPA 25/100MG TABLET PO SCH ×3 (09:08→20:32)
[2020-06-06] MEDS: SERTRALINE 50 MG TABLET. PO SCH (09:09)
--- NOTE | 2020-06-06 10:26 | NUR ---
He is compliant with his medication and assessment. Pt is calm, cooperative, and compliant. No agitation, no aggression, no hallucinations, no delusions.
[2020-06-06 12:39] VITALS: BP 134/93
[2020-06-06 15:32] VITALS: BP 99/66
--- NOTE | 2020-06-06 18:14 | NUR ---
Pt is wandering, door checking, exit seeking. He stated "I need to get the package." Staff is not able to redirect the pt. PRN ulisses montano given.
[2020-06-06] MEDS: MIRTAZAPINE 15 MG TABLET PO SCH (20:32)
[2020-06-06] MEDS: traZODone 100 MG TABLET. PO PRN (20:33)
[2020-06-06] MEDS: QUEtiapine 100 MG TABLET. PO SCH (20:33)
--- NOTE | 2020-06-06 20:53 | PDOC ---
Exam Note: Jason Note: Please also refer to the separate dictated note~for this date of service dictated separately.~Patient seen individually. Discussed the patient with Nursing staff reviewed the chart.~Reviewed interim history and current functioning. Reviewed vital signs,~Labs/ Radiology~and current medications noted below. Continue current treatment with the changes noted in the dictated addendum note Assessment: Vital Signs/I&O: Vital Signs Date Time Temp Pulse Resp B/P (MAP) Pulse Ox O2 Delivery O2 Flow Rate FiO2 06/06/20 17:28 90 99/66 06/06/20 15:32 98.1 18 97 06/06/20 06:21 Room Air I & O 06/05/20 06/05/20 06/06/20 15:00 23:00 07:00 Intake Total 220 ml 120 ml Balance 220 ml 120 ml Current Medications: Meds: Current Medications Medications (Trade) Dose Ordered Sig/Rik Route PRN Reason Start Time Stop Time Status Last Admin Dose Admin Mirtazapine (Remeron) 15 mg QHS PO 06/05/20 21:00 06/06/20 20:32 Sertraline HCl (Zoloft) 50 mg DAILY PO 06/06/20 09:00 06/06/20 09:09 I have reviewed the current psychotropics carefully including drug interactions. Risk benefit ratio favors no change other than as noted in my dictated progress note. Diagnosis: Problems: (1) Impulse control disorder, unspecified (2) Anxiety disorder, unspecified (3) Psychotic disorder (4) Dementia in Alzheimer's disease with depression (5) Dementia in Alzheimer's disease with delusions (6) Lewy body dementia with behavioral disturbance (7) Major neurocognitive disorder HAYLEY GUZMAN MD Jun 06, 2020 20:53
--- NOTE | 2020-06-06 22:51 | NUR ---
Pt wandering unit this evening. Disorganized and restless. Compliant with whole medications with coaxing.
[2020-06-07] MEDS: MIDODRINE 5 MG TABLET PO SCH ×3 (06:21→17:48)
[2020-06-07 06:26] VITALS: BP 136/89
--- NOTE | 2020-06-07 07:05 | PDOC ---
Exam Note: Jason Note: This note is a late entry for 06/03/2020 covers elements not covered in my initial note. Subjective: The patient was seen face to face in the morning of 06/03/2020 for a treatment team meeting with Yamilka Chaparro, Karine Brooks and Sandra (older adult social work specialist), Mandy Barnes, activity therapy and Germania BLANC, discussed and reviewed the patients progress. He slept 5-1/4 hours previous night. The patients Ema attended the conference as well. We had a lengthy discussion about the patients diagnosis, progress and has a follow-up with Dr. Cabrales, neurologist on August 17. He does seem to have symptoms of Lewy body dementia and I discussed this with the . Appetite has been 50%. He has been wandering. is still considering having him home but this may have to be reassessed as he progresses in treatment. Review of Systems: Ambulation impaired due to his Parkinsons. Gait unsteady at times, festinating. No CV, , pulmonary, eye, ENT system symptoms on review. Reliability poor. Mental Status Exam: The patient is oriented to himself. Insight and judgment, recent and remote memory, attention and concentration, fund of knowledge is poor consistent with his diagnosis. At other times the patient seems more oriented and reflective on his Lewy body. Laboratory Data: Reviewed. 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 Anxiety disorder unspecified. Impulse control disorder unspecified. Parkinsons disease. Seizure disorder. Recent COVID-19 pneumonia. Plan: Continue current psychotropics. We will go ahead and start Zoloft 25 mg a day for his mood and anxiety symptoms. We will make further adjustments as clinically indicated. Assessment: Vital Signs/I&O: Vital Signs Date Time Temp Pulse Resp B/P (MAP) Pulse Ox O2 Delivery O2 Flow Rate FiO2 06/07/20 06:26 98.7 87 18 136/89 (105) 96 Room Air I & O 06/06/20 06/06/20 06/07/20 15:00 23:00 07:00 Intake Total 240 ml 80 ml 0 ml Balance 240 ml 80 ml 0 ml Current Medications: Meds: Current Medications Medications (Trade) Dose Ordered Sig/Rik Route PRN Reason Start Time Stop Time Status Last Admin Dose Admin Acetaminophen (Tylenol) 650 mg PRN Q6HRS PRN PO MILD PAIN / TEMP > 100.3'F 05/31/20 13:45 06/05/20 16:01 Multi-Ingredient Ointment (Analgesic [place]) 1 king PRN QID PRN TP MUSCLE PAIN 05/31/20 13:45 Al Hydroxide/Mg Hydroxide (Mylanta Plus Xs) 15 ml PRN AFTMEALHC PRN PO DYSPEPSIA 05/31/20 13:45 06/01/20 15:35 Magnesium Hydroxide (Milk Of Magnesia) 2,400 mg PRN QHS PRN PO CONSTIPATION 05/31/20 13:45 06/02/20 05:41 Acetaminophen (Tylenol) 650 mg PRN Q6HRS PRN PO MILD PAIN / TEMP > 100.3'F 05/31/20 14:30 UNV Carbidopa/Levodopa (Sinemet 25/100) 2 tab TID PO 05/31/20 21:00 06/06/20 20:32 Vitamin D (Vitamin D3) 50,000 unit WEEKLY PO 06/03/20 09:00 06/03/20 07:53 Docusate Sodium (Colace) 100 mg BID PO 05/31/20 21:00 06/06/20 20:33 Levetiracetam (Keppra) 500 mg BID PO 05/31/20 21:00 06/06/20 20:32 Al Hydroxide/Mg Hydroxide (Mylanta Plus Xs) 15 ml PRN AFTMEALHC PRN PO DYSPEPSIA 05/31/20 14:30 UNV Magnesium Hydroxide (Milk Of Magnesia) 2,400 mg PRN QHS PRN PO CONSTIPATION 05/31/20 14:30 UNV Midodrine (Proamatine) 5 mg [id number] PO 05/31/20 18:00 06/06/20 17:28 Pramipexole Dihydrochloride (miraPEX) 0.25 mg BID PO 05/31/20 21:00 06/06/20 20:33 Non-Formulary Medication (Methyl Salicylate/ Menthol (Analgesic [place])) 1 king PRN QID PRN TP MUSCLE PAIN 05/31/20 14:30 UNV Olanzapine (ZyPREXA ZYDIS) 2.5 mg PRN Q2HR PRN PO PSYCHOSIS 05/31/20 14:30 06/06/20 18:00 Quetiapine Fumarate (SEROquel) 100 mg QHS PO 05/31/20 21:00 06/06/20 20:33 Trazodone HCl (Desyrel) 100 mg PRN QHS PRN PO INSOMNIA 05/31/20 14:45 06/06/20 20:33 Quetiapine Fumarate (SEROquel) 25 mg TID PO 05/31/20 21:00 05/31/20 18:26 DC Quetiapine Fumarate (SEROquel) 25 mg 0900,1300,1700 PO 06/01/20 09:00 06/06/20 17:28 Mirtazapine (Remeron) 7.5 mg QHS PO 06/01/20 21:00 06/05/20 16:31 DC 06/04/20 19:42 Sertraline HCl (Zoloft) 25 mg DAILY PO 06/03/20 09:00 06/05/20 16:31 DC 06/05/20 09:40 Mirtazapine (Remeron) 15 mg QHS PO 06/05/20 21:00 06/06/20 20:32 Sertraline HCl (Zoloft) 50 mg DAILY PO 06/06/20 09:00 06/06/20 09:09 Current Medications Medications (Trade) Dose Ordered Sig/Rik Route PRN Reason Start Time Stop Time Status Last Admin Dose Admin Sertraline HCl (Zoloft) 50 mg DAILY PO 06/06/20 09:00 06/06/20 09:09 I have reviewed the current psychotropics carefully including drug interactions. Risk benefit ratio favors no change other than as noted in my dictated progress note. 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
--- NOTE | 2020-06-07 07:41 | PDOC ---
Exam Note: Jason Note: This note is a late entry for 06/04/2020 covers elements not covered in my initial note. Subjective: The patient was seen face to face in the evening of 06/04/2020 with Lynsey BLANC, discussed and reviewed the chart. He slept 7-1/2 hours previous night. The patient has been wandering. Review of Systems: No CV, , pulmonary, eye, ENT system symptoms on review. Mental Status Exam: The patient is oriented to himself. As I met with him in the evening he was asking about his discharge plans but not entirely cognizant of this. Insight and judgment, recent and remote memory, attention and concentration, fund of knowledge is poor consistent with his diagnosis. Laboratory Data: Reviewed. 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 Anxiety disorder unspecified. Impulse control disorder unspecified. Parkinsons disease. Seizure disorder. Plan: Continue rest unchanged. Assessment: Vital Signs/I&O: Vital Signs Date Time Temp Pulse Resp B/P (MAP) Pulse Ox O2 Delivery O2 Flow Rate FiO2 06/07/20 06:26 98.7 87 18 136/89 (105) 96 Room Air I & O 06/06/20 06/06/20 06/07/20 15:00 23:00 07:00 Intake Total 240 ml 80 ml 0 ml Balance 240 ml 80 ml 0 ml Current Medications: Meds: Current Medications Medications (Trade) Dose Ordered Sig/Rik Route PRN Reason Start Time Stop Time Status Last Admin Dose Admin Acetaminophen (Tylenol) 650 mg PRN Q6HRS PRN PO MILD PAIN / TEMP > 100.3'F 05/31/20 13:45 06/05/20 16:01 Multi-Ingredient Ointment (Analgesic [place]) 1 king PRN QID PRN TP MUSCLE PAIN 05/31/20 13:45 Al Hydroxide/Mg Hydroxide (Mylanta Plus Xs) 15 ml PRN AFTMEALHC PRN PO DYSPEPSIA 05/31/20 13:45 06/01/20 15:35 Magnesium Hydroxide (Milk Of Magnesia) 2,400 mg PRN QHS PRN PO CONSTIPATION 05/31/20 13:45 06/02/20 05:41 Acetaminophen (Tylenol) 650 mg PRN Q6HRS PRN PO MILD PAIN / TEMP > 100.3'F 05/31/20 14:30 UNV Carbidopa/Levodopa (Sinemet 25/100) 2 tab TID PO 05/31/20 21:00 06/06/20 20:32 Vitamin D (Vitamin D3) 50,000 unit WEEKLY PO 06/03/20 09:00 06/03/20 07:53 Docusate Sodium (Colace) 100 mg BID PO 05/31/20 21:00 06/06/20 20:33 Levetiracetam (Keppra) 500 mg BID PO 05/31/20 21:00 06/06/20 20:32 Al Hydroxide/Mg Hydroxide (Mylanta Plus Xs) 15 ml PRN AFTMEALHC PRN PO DYSPEPSIA 05/31/20 14:30 UNV Magnesium Hydroxide (Milk Of Magnesia) 2,400 mg PRN QHS PRN PO CONSTIPATION 05/31/20 14:30 UNV Midodrine (Proamatine) 5 mg [id number] PO 05/31/20 18:00 06/06/20 17:28 Pramipexole Dihydrochloride (miraPEX) 0.25 mg BID PO 05/31/20 21:00 06/06/20 20:33 Non-Formulary Medication (Methyl Salicylate/ Menthol (Analgesic [place])) 1 king PRN QID PRN TP MUSCLE PAIN 05/31/20 14:30 UNV Olanzapine (ZyPREXA ZYDIS) 2.5 mg PRN Q2HR PRN PO PSYCHOSIS 05/31/20 14:30 06/06/20 18:00 Quetiapine Fumarate (SEROquel) 100 mg QHS PO 05/31/20 21:00 06/06/20 20:33 Trazodone HCl (Desyrel) 100 mg PRN QHS PRN PO INSOMNIA 05/31/20 14:45 06/06/20 20:33 Quetiapine Fumarate (SEROquel) 25 mg TID PO 05/31/20 21:00 05/31/20 18:26 DC Quetiapine Fumarate (SEROquel) 25 mg 0900,1300,1700 PO 06/01/20 09:00 06/06/20 17:28 Mirtazapine (Remeron) 7.5 mg QHS PO 06/01/20 21:00 06/05/20 16:31 DC 06/04/20 19:42 Sertraline HCl (Zoloft) 25 mg DAILY PO 06/03/20 09:00 06/05/20 16:31 DC 06/05/20 09:40 Mirtazapine (Remeron) 15 mg QHS PO 06/05/20 21:00 06/06/20 20:32 Sertraline HCl (Zoloft) 50 mg DAILY PO 06/06/20 09:00 06/06/20 09:09 Current Medications Medications (Trade) Dose Ordered Sig/Rik Route PRN Reason Start Time Stop Time Status Last Admin Dose Admin Sertraline HCl (Zoloft) 50 mg DAILY PO 06/06/20 09:00 06/06/20 09:09 I have reviewed the current psychotropics carefully including drug interactions. Risk benefit ratio favors no change other than as noted in my dictated progress note. 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
--- NOTE | 2020-06-07 08:06 | PDOC ---
Exam Note: Jason Note: This note is a late entry for 06/05/2020 covers elements not covered in my initial note. Subjective: The patient was seen face to face in the evening of 06/05/2020 with Citlalli BLANC, discussed and reviewed the chart. He slept 4 hours previous night. He has been wandering in the evening, exit seeking. He received Tylenol and Zyprexa p.r.n. for agitation, [facility] because he was intrusive with other patients. Review of Systems: No CV, , pulmonary, eye, ENT system symptoms on review. Mental Status Exam: The patient is oriented to himself. Insight and judgment, recent and remote memory, attention and concentration, fund of knowledge is poor consistent with his diagnosis. Laboratory Data: Reviewed. 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 Anxiety disorder unspecified. Impulse control disorder unspecified. Parkinsons disease. Seizure disorder. Plan: Continue current psychotropics. Increase Zoloft to 50 mg a day, Remeron from 7.5 mg h.s. to 15 mg h.s. since he continues to have insomnia. Make further adjustments as clinically indicated. Assessment: Vital Signs/I&O: Vital Signs Date Time Temp Pulse Resp B/P (MAP) Pulse Ox O2 Delivery O2 Flow Rate FiO2 06/07/20 06:26 98.7 87 18 136/89 (105) 96 Room Air I & O 06/06/20 06/06/20 06/07/20 15:00 23:00 07:00 Intake Total 240 ml 80 ml 0 ml Balance 240 ml 80 ml 0 ml Current Medications: Meds: Current Medications Medications (Trade) Dose Ordered Sig/Rik Route PRN Reason Start Time Stop Time Status Last Admin Dose Admin Acetaminophen (Tylenol) 650 mg PRN Q6HRS PRN PO MILD PAIN / TEMP > 100.3'F 05/31/20 13:45 06/05/20 16:01 Multi-Ingredient Ointment (Analgesic [place]) 1 king PRN QID PRN TP MUSCLE PAIN 05/31/20 13:45 Al Hydroxide/Mg Hydroxide (Mylanta Plus Xs) 15 ml PRN AFTMEALHC PRN PO DYSPEPSIA 05/31/20 13:45 06/01/20 15:35 Magnesium Hydroxide (Milk Of Magnesia) 2,400 mg PRN QHS PRN PO CONSTIPATION 05/31/20 13:45 06/02/20 05:41 Acetaminophen (Tylenol) 650 mg PRN Q6HRS PRN PO MILD PAIN / TEMP > 100.3'F 05/31/20 14:30 UNV Carbidopa/Levodopa (Sinemet 25/100) 2 tab TID PO 05/31/20 21:00 06/06/20 20:32 Vitamin D (Vitamin D3) 50,000 unit WEEKLY PO 06/03/20 09:00 06/03/20 07:53 Docusate Sodium (Colace) 100 mg BID PO 05/31/20 21:00 06/06/20 20:33 Levetiracetam (Keppra) 500 mg BID PO 05/31/20 21:00 06/06/20 20:32 Al Hydroxide/Mg Hydroxide (Mylanta Plus Xs) 15 ml PRN AFTMEALHC PRN PO DYSPEPSIA 05/31/20 14:30 UNV Magnesium Hydroxide (Milk Of Magnesia) 2,400 mg PRN QHS PRN PO CONSTIPATION 05/31/20 14:30 UNV Midodrine (Proamatine) 5 mg [id number] PO 05/31/20 18:00 06/06/20 17:28 Pramipexole Dihydrochloride (miraPEX) 0.25 mg BID PO 05/31/20 21:00 06/06/20 20:33 Non-Formulary Medication (Methyl Salicylate/ Menthol (Analgesic [place])) 1 king PRN QID PRN TP MUSCLE PAIN 05/31/20 14:30 UNV Olanzapine (ZyPREXA ZYDIS) 2.5 mg PRN Q2HR PRN PO PSYCHOSIS 05/31/20 14:30 06/06/20 18:00 Quetiapine Fumarate (SEROquel) 100 mg QHS PO 05/31/20 21:00 06/06/20 20:33 Trazodone HCl (Desyrel) 100 mg PRN QHS PRN PO INSOMNIA 05/31/20 14:45 06/06/20 20:33 Quetiapine Fumarate (SEROquel) 25 mg TID PO 05/31/20 21:00 05/31/20 18:26 DC Quetiapine Fumarate (SEROquel) 25 mg 0900,1300,1700 PO 06/01/20 09:00 06/06/20 17:28 Mirtazapine (Remeron) 7.5 mg QHS PO 06/01/20 21:00 06/05/20 16:31 DC 06/04/20 19:42 Sertraline HCl (Zoloft) 25 mg DAILY PO 06/03/20 09:00 06/05/20 16:31 DC 06/05/20 09:40 Mirtazapine (Remeron) 15 mg QHS PO 06/05/20 21:00 06/06/20 20:32 Sertraline HCl (Zoloft) 50 mg DAILY PO 06/06/20 09:00 06/06/20 09:09 Current Medications Medications (Trade) Dose Ordered Sig/Rik Route PRN Reason Start Time Stop Time Status Last Admin Dose Admin Sertraline HCl (Zoloft) 50 mg DAILY PO 06/06/20 09:00 06/06/20 09:09 I have reviewed the current psychotropics carefully including drug interactions. Risk benefit ratio favors no change other than as noted in my dictated progress note. 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
--- NOTE | 2020-06-07 08:34 | PDOC ---
Exam Note: Jason Note: This note is a late entry for 06/06/2020 covers elements not covered in my initial note. Subjective: The patient was seen face to face in the evening of 06/06/2020 with Citlalli BLANC, discussed and reviewed the chart. He slept 4 hours previous night. He was restless previous evening, done better during the day today. He wanders the unit. At times the patient appears quite a bit more oriented than other times and today he was quite confused as I met with him. Review of Systems: No CV, , pulmonary, eye, ENT system symptoms on review. Reliability poor. Mental Status Exam: The patient is oriented to himself. Insight and judgment, recent and remote memory, attention and concentration, fund of knowledge is poor consistent with his diagnosis. Laboratory Data: Reviewed. 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 Anxiety disorder unspecified. Impulse control disorder unspecified. Parkinsons disease. Plan: No change from initial note. Assessment: Vital Signs/I&O: Vital Signs Date Time Temp Pulse Resp B/P (MAP) Pulse Ox O2 Delivery O2 Flow Rate FiO2 06/07/20 06:26 98.7 87 18 136/89 (105) 96 Room Air I & O 06/06/20 06/06/20 06/07/20 15:00 23:00 07:00 Intake Total 240 ml 80 ml 0 ml Balance 240 ml 80 ml 0 ml Current Medications: Meds: Current Medications Medications (Trade) Dose Ordered Sig/Rik Route PRN Reason Start Time Stop Time Status Last Admin Dose Admin Acetaminophen (Tylenol) 650 mg PRN Q6HRS PRN PO MILD PAIN / TEMP > 100.3'F 05/31/20 13:45 06/05/20 16:01 Multi-Ingredient Ointment (Analgesic [place]) 1 king PRN QID PRN TP MUSCLE PAIN 05/31/20 13:45 Al Hydroxide/Mg Hydroxide (Mylanta Plus Xs) 15 ml PRN AFTMEALHC PRN PO DYSPEPSIA 05/31/20 13:45 06/01/20 15:35 Magnesium Hydroxide (Milk Of Magnesia) 2,400 mg PRN QHS PRN PO CONSTIPATION 05/31/20 13:45 06/02/20 05:41 Acetaminophen (Tylenol) 650 mg PRN Q6HRS PRN PO MILD PAIN / TEMP > 100.3'F 05/31/20 14:30 UNV Carbidopa/Levodopa (Sinemet 25/100) 2 tab TID PO 05/31/20 21:00 06/06/20 20:32 Vitamin D (Vitamin D3) 50,000 unit WEEKLY PO 06/03/20 09:00 06/03/20 07:53 Docusate Sodium (Colace) 100 mg BID PO 05/31/20 21:00 06/06/20 20:33 Levetiracetam (Keppra) 500 mg BID PO 05/31/20 21:00 06/06/20 20:32 Al Hydroxide/Mg Hydroxide (Mylanta Plus Xs) 15 ml PRN AFTMEALHC PRN PO DYSPEPSIA 05/31/20 14:30 UNV Magnesium Hydroxide (Milk Of Magnesia) 2,400 mg PRN QHS PRN PO CONSTIPATION 05/31/20 14:30 UNV Midodrine (Proamatine) 5 mg [id number] PO 05/31/20 18:00 06/06/20 17:28 Pramipexole Dihydrochloride (miraPEX) 0.25 mg BID PO 05/31/20 21:00 06/06/20 20:33 Non-Formulary Medication (Methyl Salicylate/ Menthol (Analgesic [place])) 1 king PRN QID PRN TP MUSCLE PAIN 05/31/20 14:30 UNV Olanzapine (ZyPREXA ZYDIS) 2.5 mg PRN Q2HR PRN PO PSYCHOSIS 05/31/20 14:30 06/06/20 18:00 Quetiapine Fumarate (SEROquel) 100 mg QHS PO 05/31/20 21:00 06/06/20 20:33 Trazodone HCl (Desyrel) 100 mg PRN QHS PRN PO INSOMNIA 05/31/20 14:45 06/06/20 20:33 Quetiapine Fumarate (SEROquel) 25 mg TID PO 05/31/20 21:00 05/31/20 18:26 DC Quetiapine Fumarate (SEROquel) 25 mg 0900,1300,1700 PO 06/01/20 09:00 06/06/20 17:28 Mirtazapine (Remeron) 7.5 mg QHS PO 06/01/20 21:00 06/05/20 16:31 DC 06/04/20 19:42 Sertraline HCl (Zoloft) 25 mg DAILY PO 06/03/20 09:00 06/05/20 16:31 DC 06/05/20 09:40 Mirtazapine (Remeron) 15 mg QHS PO 06/05/20 21:00 06/06/20 20:32 Sertraline HCl (Zoloft) 50 mg DAILY PO 06/06/20 09:00 06/06/20 09:09 Current Medications Medications (Trade) Dose Ordered Sig/Rik Route PRN Reason Start Time Stop Time Status Last Admin Dose Admin Sertraline HCl (Zoloft) 50 mg DAILY PO 06/06/20 09:00 06/06/20 09:09 I have reviewed the current psychotropics carefully including drug interactions. Risk benefit ratio favors no change other than as noted in my dictated progress note. 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
[2020-06-07] MEDS: levETIRAcetam 500 MG TABLET PO SCH ×2 (09:00→20:13)
[2020-06-07] MEDS: SERTRALINE 50 MG TABLET. PO SCH (09:00)
[2020-06-07] MEDS: DOCUSATE SODIUM 100 MG CAPSULE PO SCH ×2 (09:00→20:13)
[2020-06-07] MEDS: PRAMIPEXOLE 0.25 MG TABLET. PO SCH ×2 (09:00→20:13)
[2020-06-07] MEDS: QUEtiapine 25 MG TABLET. PO SCH ×3 (09:00→17:00)
[2020-06-07] MEDS: CARBIDOPA/LEVODOPA 25/100MG TABLET PO SCH ×3 (09:00→20:13)
--- NOTE | 2020-06-07 12:04 | NUR ---
See downtime med rec for am medication administration.
[2020-06-07 13:47] VITALS: BP 107/76
--- NOTE | 2020-06-07 16:06 | NUR ---
Pt is calm, cooperative, disorganized, confused, and compliant. No agitation, no aggression, no hallucinations. He is compliant with his medication and assessment.
[2020-06-07 16:11] VITALS: BP 133/89
[2020-06-07] MEDS: MIRTAZAPINE 15 MG TABLET PO SCH (20:13)
[2020-06-07] MEDS: QUEtiapine 100 MG TABLET. PO SCH (20:13)
[2020-06-07] MEDS: traZODone 100 MG TABLET. PO PRN (20:14)
--- NOTE | 2020-06-07 21:04 | PDOC ---
Exam Note: Jason Note: Please also refer to the separate dictated note~for this date of service dictated separately.~Patient seen individually. Discussed the patient with Nursing staff reviewed the chart.~Reviewed interim history and current functioning. Reviewed vital signs,~Labs/ Radiology~and current medications noted below. Continue current treatment with the changes noted in the dictated addendum note Assessment: Vital Signs/I&O: Vital Signs Date Time Temp Pulse Resp B/P (MAP) Pulse Ox O2 Delivery O2 Flow Rate FiO2 06/07/20 17:48 79 133/89 06/07/20 16:11 98.0 16 96 06/07/20 06:26 Room Air I & O 06/06/20 06/06/20 06/07/20 15:00 23:00 07:00 Intake Total 240 ml 80 ml 0 ml Balance 240 ml 80 ml 0 ml Current Medications: Meds: Current Medications Medications (Trade) Dose Ordered Sig/Rik Route PRN Reason Start Time Stop Time Status Last Admin Dose Admin Acetaminophen (Tylenol) 650 mg PRN Q6HRS PRN PO MILD PAIN / TEMP > 100.3'F 05/31/20 13:45 06/05/20 16:01 Multi-Ingredient Ointment (Analgesic [place]) 1 king PRN QID PRN TP MUSCLE PAIN 05/31/20 13:45 Al Hydroxide/Mg Hydroxide (Mylanta Plus Xs) 15 ml PRN AFTMEALHC PRN PO DYSPEPSIA 05/31/20 13:45 06/01/20 15:35 Magnesium Hydroxide (Milk Of Magnesia) 2,400 mg PRN QHS PRN PO CONSTIPATION 05/31/20 13:45 06/02/20 05:41 Acetaminophen (Tylenol) 650 mg PRN Q6HRS PRN PO MILD PAIN / TEMP > 100.3'F 05/31/20 14:30 UNV Carbidopa/Levodopa (Sinemet 25/100) 2 tab TID PO 05/31/20 21:00 06/07/20 20:13 Vitamin D (Vitamin D3) 50,000 unit WEEKLY PO 06/03/20 09:00 06/03/20 07:53 Docusate Sodium (Colace) 100 mg BID PO 05/31/20 21:00 06/07/20 20:13 Levetiracetam (Keppra) 500 mg BID PO 05/31/20 21:00 06/07/20 20:13 Al Hydroxide/Mg Hydroxide (Mylanta Plus Xs) 15 ml PRN AFTMEALHC PRN PO DYSPEPSIA 05/31/20 14:30 UNV Magnesium Hydroxide (Milk Of Magnesia) 2,400 mg PRN QHS PRN PO CONSTIPATION 05/31/20 14:30 UNV Midodrine (Proamatine) 5 mg [id number] PO 05/31/20 18:00 06/07/20 13:50 Pramipexole Dihydrochloride (miraPEX) 0.25 mg BID PO 05/31/20 21:00 06/07/20 20:13 Non-Formulary Medication (Methyl Salicylate/ Menthol (Analgesic [place])) 1 king PRN QID PRN TP MUSCLE PAIN 05/31/20 14:30 UNV Olanzapine (ZyPREXA ZYDIS) 2.5 mg PRN Q2HR PRN PO PSYCHOSIS 05/31/20 14:30 06/06/20 18:00 Quetiapine Fumarate (SEROquel) 100 mg QHS PO 05/31/20 21:00 06/07/20 20:13 Trazodone HCl (Desyrel) 100 mg PRN QHS PRN PO INSOMNIA 05/31/20 14:45 06/07/20 20:14 Quetiapine Fumarate (SEROquel) 25 mg TID PO 05/31/20 21:00 05/31/20 18:26 DC Quetiapine Fumarate (SEROquel) 25 mg 0900,1300,1700 PO 06/01/20 09:00 06/07/20 13:51 Mirtazapine (Remeron) 7.5 mg QHS PO 06/01/20 21:00 06/05/20 16:31 DC 06/04/20 19:42 Sertraline HCl (Zoloft) 25 mg DAILY PO 06/03/20 09:00 06/05/20 16:31 DC 06/05/20 09:40 Mirtazapine (Remeron) 15 mg QHS PO 06/05/20 21:00 06/07/20 20:13 Sertraline HCl (Zoloft) 50 mg DAILY PO 06/06/20 09:00 06/09/20 11:00 06/06/20 09:09 Sertraline HCl (Zoloft) 75 mg DAILY PO 06/10/20 09:00 I have reviewed the current psychotropics carefully including drug interactions. Risk benefit ratio favors no change other than as noted in my dictated progress note. Diagnosis: Problems: (1) Major neurocognitive disorder due to Parkinson's disease with behavioral disturbance (2) Anxiety disorder, unspecified (3) Impulse control disorder, unspecified (4) Dementia in Alzheimer's disease with depression (5) Dementia in Alzheimer's disease with delusions (6) Parkinson's disease HAYLEY GUZMAN MD Jun 07, 2020 21:04
--- NOTE | 2020-06-07 23:29 | NUR ---
Pt wandering unit this evening. Disorganized and restless. Compliant with whole medications given on a spoon. No agitation or aggression.
[2020-06-08 05:25] VITALS: BP 147/76
[2020-06-08] MEDS: MIDODRINE 5 MG TABLET PO SCH ×3 (05:32→17:50)
[2020-06-08 06:18] LABS: BASO # 0.1 x10^3/uL (0.0-0.2); BASO % 1 % (0-3); EOS # 0.1 x10^3/uL (0.0-0.7); EOS % 1 % (0-3); HEMATOCRIT 41.8 % (39.0-53.0); HEMOGLOBIN 14.1 g/dL (13.0-17.5); LYMPH # 1.5 x10^3/uL (1.0-4.8); LYMPH % 12 % (24-48); MEAN CORPUSCULAR HEMOGLOBIN 30 pg (25-35); MEAN CORPUSCULAR HGB CONC 34 g/dL (31-37); MEAN CORPUSCULAR VOLUME 89 fL (79-100); MONO # 0.8 x10^3/uL (0.0-1.1); MONO % 6 % (0-9); NEUT # 10.6 x10^3uL (1.8-7.7); NEUT % 81 % (31-73); PLATELET COUNT 241 x10^3/uL (140-400); RED BLOOD COUNT 4.68 x10^6/uL (4.30-5.70); RED CELL DISTRIBUTION WIDTH 13.8 % (11.5-14.5); WHITE BLOOD COUNT 13.1 x10^3/uL (4.0-11.0)
[2020-06-08] MEDS: QUEtiapine 25 MG TABLET. PO SCH ×3 (09:00→17:49)
[2020-06-08] MEDS: SERTRALINE 50 MG TABLET. PO SCH (09:00)
[2020-06-08] MEDS: DOCUSATE SODIUM 100 MG CAPSULE PO SCH ×2 (09:00→19:45)
[2020-06-08] MEDS: levETIRAcetam 500 MG TABLET PO SCH ×2 (09:00→19:46)
[2020-06-08] MEDS: PRAMIPEXOLE 0.25 MG TABLET. PO SCH ×2 (09:00→19:46)
[2020-06-08] MEDS: CARBIDOPA/LEVODOPA 25/100MG TABLET PO SCH ×3 (09:00→19:46)
[2020-06-08 16:20] VITALS: BP 147/87
[2020-06-08] MEDS: traZODone 100 MG TABLET. PO PRN (19:46)
[2020-06-08] MEDS: QUEtiapine 100 MG TABLET. PO SCH (19:46)
[2020-06-08] MEDS: MIRTAZAPINE 15 MG TABLET PO SCH (19:46)
--- NOTE | 2020-06-08 21:16 | PDOC ---
Exam Note: Jason Note: This note is a late entry for 06/07/2020 covers elements not covered in my initial note. Subjective: The patient was seen face to face in the evening of 06/07/2020 with Citlalli BLANC, discussed and reviewed the chart. He slept 7 hours previous night. The patient remains anxious, restless. Previous night he climbed onto the air filter. He was confused, restless. Review of Systems: No CV, , pulmonary, eye, ENT system symptoms on review. Reliability poor. Mental Status Exam: The patient is oriented to himself. Insight and judgment, recent and remote memory, attention and concentration, fund of knowledge is poor consistent with his diagnosis. Laboratory Data: Reviewed. 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 Anxiety disorder unspecified. Impulse control disorder unspecified. Parkinsons disease. Plan: No change from initial note. After the patient has been on Zoloft 25 mg a day for 3 days, we will increase to 50 mg a day. Rest unchanged. Assessment: Vital Signs/I&O: Vital Signs Date Time Temp Pulse Resp B/P (MAP) Pulse Ox O2 Delivery O2 Flow Rate FiO2 06/08/20 17:50 73 147/87 06/08/20 16:20 98.1 16 99 06/07/20 06:26 Room Air I & O 06/07/20 06/07/20 06/08/20 15:00 23:00 07:00 Intake Total 240 ml 240 ml Balance 240 ml 240 ml Labs: Laboratory Tests Test 06/08/20 06:00 White Blood Count 13.1 x10^3/uL (4.0-11.0) H Red Blood Count 4.68 x10^6/uL (4.30-5.70) Hemoglobin 14.1 g/dL (13.0-17.5) Hematocrit 41.8 % (39.0-53.0) Mean Corpuscular Volume 89 fL (79-100) Mean Corpuscular Hemoglobin 30 pg (25-35) Mean Corpuscular Hemoglobin Concent 34 g/dL (31-37) Red Cell Distribution Width 13.8 % (11.5-14.5) Platelet Count 241 x10^3/uL (140-400) Neutrophils (%) (Auto) 81 % (31-73) H Lymphocytes (%) (Auto) 12 % (24-48) L Monocytes (%) (Auto) 6 % (0-9) Eosinophils (%) (Auto) 1 % (0-3) Basophils (%) (Auto) 1 % (0-3) Neutrophils # (Auto) 10.6 x10^3uL (1.8-7.7) H Lymphocytes # (Auto) 1.5 x10^3/uL (1.0-4.8) Monocytes # (Auto) 0.8 x10^3/uL (0.0-1.1) Eosinophils # (Auto) 0.1 x10^3/uL (0.0-0.7) Basophils # (Auto) 0.1 x10^3/uL (0.0-0.2) Current Medications: Meds: Laboratory Tests Test 06/08/20 06:00 White Blood Count 13.1 x10^3/uL Red Blood Count 4.68 x10^6/uL Hemoglobin 14.1 g/dL Hematocrit 41.8 % Mean Corpuscular Volume 89 fL Mean Corpuscular Hemoglobin 30 pg Mean Corpuscular Hemoglobin Concent 34 g/dL Red Cell Distribution Width 13.8 % Platelet Count 241 x10^3/uL Neutrophils (%) (Auto) 81 % Lymphocytes (%) (Auto) 12 % Monocytes (%) (Auto) 6 % Eosinophils (%) (Auto) 1 % Basophils (%) (Auto) 1 % Neutrophils # (Auto) 10.6 x10^3uL Lymphocytes # (Auto) 1.5 x10^3/uL Monocytes # (Auto) 0.8 x10^3/uL Eosinophils # (Auto) 0.1 x10^3/uL Basophils # (Auto) 0.1 x10^3/uL Current Medications Medications (Trade) Dose Ordered Sig/Rik Route PRN Reason Start Time Stop Time Status Last Admin Dose Admin Acetaminophen (Tylenol) 650 mg PRN Q6HRS PRN PO MILD PAIN / TEMP > 100.3'F 05/31/20 13:45 06/05/20 16:01 Multi-Ingredient Ointment (Analgesic [place]) 1 king PRN QID PRN TP MUSCLE PAIN 05/31/20 13:45 Al Hydroxide/Mg Hydroxide (Mylanta Plus Xs) 15 ml PRN AFTMEALHC PRN PO DYSPEPSIA 05/31/20 13:45 06/01/20 15:35 Magnesium Hydroxide (Milk Of Magnesia) 2,400 mg PRN QHS PRN PO CONSTIPATION 05/31/20 13:45 06/02/20 05:41 Acetaminophen (Tylenol) 650 mg PRN Q6HRS PRN PO MILD PAIN / TEMP > 100.3'F 05/31/20 14:30 UNV Carbidopa/Levodopa (Sinemet 25/100) 2 tab TID PO 05/31/20 21:00 06/08/20 19:46 Vitamin D (Vitamin D3) 50,000 unit WEEKLY PO 06/03/20 09:00 06/03/20 07:53 Docusate Sodium (Colace) 100 mg BID PO 05/31/20 21:00 06/08/20 19:45 Levetiracetam (Keppra) 500 mg BID PO 05/31/20 21:00 06/08/20 19:46 Al Hydroxide/Mg Hydroxide (Mylanta Plus Xs) 15 ml PRN AFTMEALHC PRN PO DYSPEPSIA 05/31/20 14:30 UNV Magnesium Hydroxide (Milk Of Magnesia) 2,400 mg PRN QHS PRN PO CONSTIPATION 05/31/20 14:30 UNV Midodrine (Proamatine) 5 mg [id number] PO 05/31/20 18:00 06/08/20 17:50 Pramipexole Dihydrochloride (miraPEX) 0.25 mg BID PO 05/31/20 21:00 06/08/20 19:46 Non-Formulary Medication (Methyl Salicylate/ Menthol (Analgesic [place])) 1 king PRN QID PRN TP MUSCLE PAIN 05/31/20 14:30 UNV Olanzapine (ZyPREXA ZYDIS) 2.5 mg PRN Q2HR PRN PO PSYCHOSIS 05/31/20 14:30 06/06/20 18:00 Quetiapine Fumarate (SEROquel) 100 mg QHS PO 05/31/20 21:00 06/08/20 19:46 Trazodone HCl (Desyrel) 100 mg PRN QHS PRN PO INSOMNIA 05/31/20 14:45 06/08/20 19:46 Quetiapine Fumarate (SEROquel) 25 mg TID PO 2/8/21 21:00 05/31/20 18:26 DC Quetiapine Fumarate (SEROquel) 25 mg 0900,1300,1700 PO 06/01/20 09:00 06/08/20 17:49 Mirtazapine (Remeron) 7.5 mg QHS PO 06/01/20 21:00 06/05/20 16:31 DC 06/04/20 19:42 Sertraline HCl (Zoloft) 25 mg DAILY PO 06/03/20 09:00 06/05/20 16:31 DC 06/05/20 09:40 Mirtazapine (Remeron) 15 mg QHS PO 06/05/20 21:00 06/08/20 19:46 Sertraline HCl (Zoloft) 50 mg DAILY PO 06/06/20 09:00 06/09/20 11:00 06/08/20 09:00 Sertraline HCl (Zoloft) 75 mg DAILY PO 06/10/20 09:00 I have reviewed the current psychotropics carefully including drug interactions. Risk benefit ratio favors no change other than as noted in my dictated progress note. Diagnosis: Problems: (1) Impulse control disorder, unspecified (2) Anxiety disorder, unspecified (3) Major neurocognitive disorder due to Parkinson's disease with behavioral disturbance (4) Dementia in Alzheimer's disease with depression (5) Dementia in Alzheimer's disease with delusions (6) Lewy body dementia with behavioral disturbance (7) Parkinson's disease HAYLEY GUZMAN MD Jun 08, 2020 21:16
--- NOTE | 2020-06-08 21:17 | PDOC ---
Exam Note: Jason Note: Please also refer to the separate dictated note~for this date of service dictated separately.~Patient seen individually. Discussed the patient with Nursing staff reviewed the chart.~Reviewed interim history and current functioning. Reviewed vital signs,~Labs/ Radiology~and current medications noted below. Continue current treatment with the changes noted in the dictated addendum note Assessment: Vital Signs/I&O: Vital Signs Date Time Temp Pulse Resp B/P (MAP) Pulse Ox O2 Delivery O2 Flow Rate FiO2 06/08/20 17:50 73 147/87 06/08/20 16:20 98.1 16 99 06/07/20 06:26 Room Air I & O 06/07/20 06/07/20 06/08/20 15:00 23:00 07:00 Intake Total 240 ml 240 ml Balance 240 ml 240 ml Labs: Laboratory Tests Test 06/08/20 06:00 White Blood Count 13.1 x10^3/uL (4.0-11.0) H Red Blood Count 4.68 x10^6/uL (4.30-5.70) Hemoglobin 14.1 g/dL (13.0-17.5) Hematocrit 41.8 % (39.0-53.0) Mean Corpuscular Volume 89 fL (79-100) Mean Corpuscular Hemoglobin 30 pg (25-35) Mean Corpuscular Hemoglobin Concent 34 g/dL (31-37) Red Cell Distribution Width 13.8 % (11.5-14.5) Platelet Count 241 x10^3/uL (140-400) Neutrophils (%) (Auto) 81 % (31-73) H Lymphocytes (%) (Auto) 12 % (24-48) L Monocytes (%) (Auto) 6 % (0-9) Eosinophils (%) (Auto) 1 % (0-3) Basophils (%) (Auto) 1 % (0-3) Neutrophils # (Auto) 10.6 x10^3uL (1.8-7.7) H Lymphocytes # (Auto) 1.5 x10^3/uL (1.0-4.8) Monocytes # (Auto) 0.8 x10^3/uL (0.0-1.1) Eosinophils # (Auto) 0.1 x10^3/uL (0.0-0.7) Basophils # (Auto) 0.1 x10^3/uL (0.0-0.2) Current Medications: Meds: Laboratory Tests Test 06/08/20 06:00 White Blood Count 13.1 x10^3/uL Red Blood Count 4.68 x10^6/uL Hemoglobin 14.1 g/dL Hematocrit 41.8 % Mean Corpuscular Volume 89 fL Mean Corpuscular Hemoglobin 30 pg Mean Corpuscular Hemoglobin Concent 34 g/dL Red Cell Distribution Width 13.8 % Platelet Count 241 x10^3/uL Neutrophils (%) (Auto) 81 % Lymphocytes (%) (Auto) 12 % Monocytes (%) (Auto) 6 % Eosinophils (%) (Auto) 1 % Basophils (%) (Auto) 1 % Neutrophils # (Auto) 10.6 x10^3uL Lymphocytes # (Auto) 1.5 x10^3/uL Monocytes # (Auto) 0.8 x10^3/uL Eosinophils # (Auto) 0.1 x10^3/uL Basophils # (Auto) 0.1 x10^3/uL Current Medications Medications (Trade) Dose Ordered Sig/Rik Route PRN Reason Start Time Stop Time Status Last Admin Dose Admin Acetaminophen (Tylenol) 650 mg PRN Q6HRS PRN PO MILD PAIN / TEMP > 100.3'F 05/31/20 13:45 06/05/20 16:01 Multi-Ingredient Ointment (Analgesic [place]) 1 king PRN QID PRN TP MUSCLE PAIN 05/31/20 13:45 Al Hydroxide/Mg Hydroxide (Mylanta Plus Xs) 15 ml PRN AFTMEALHC PRN PO DYSPEPSIA 05/31/20 13:45 06/01/20 15:35 Magnesium Hydroxide (Milk Of Magnesia) 2,400 mg PRN QHS PRN PO CONSTIPATION 05/31/20 13:45 06/02/20 05:41 Acetaminophen (Tylenol) 650 mg PRN Q6HRS PRN PO MILD PAIN / TEMP > 100.3'F 05/31/20 14:30 UNV Carbidopa/Levodopa (Sinemet 25/100) 2 tab TID PO 05/31/20 21:00 06/08/20 19:46 Vitamin D (Vitamin D3) 50,000 unit WEEKLY PO 06/03/20 09:00 06/03/20 07:53 Docusate Sodium (Colace) 100 mg BID PO 05/31/20 21:00 06/08/20 19:45 Levetiracetam (Keppra) 500 mg BID PO 05/31/20 21:00 06/08/20 19:46 Al Hydroxide/Mg Hydroxide (Mylanta Plus Xs) 15 ml PRN AFTMEALHC PRN PO DYSPEPSIA 05/31/20 14:30 UNV Magnesium Hydroxide (Milk Of Magnesia) 2,400 mg PRN QHS PRN PO CONSTIPATION 05/31/20 14:30 UNV Midodrine (Proamatine) 5 mg [id number] PO 05/31/20 18:00 06/08/20 17:50 Pramipexole Dihydrochloride (miraPEX) 0.25 mg BID PO 05/31/20 21:00 06/08/20 19:46 Non-Formulary Medication (Methyl Salicylate/ Menthol (Analgesic [place])) 1 king PRN QID PRN TP MUSCLE PAIN 05/31/20 14:30 UNV Olanzapine (ZyPREXA ZYDIS) 2.5 mg PRN Q2HR PRN PO PSYCHOSIS 05/31/20 14:30 06/06/20 18:00 Quetiapine Fumarate (SEROquel) 100 mg QHS PO 05/31/20 21:00 06/08/20 19:46 Trazodone HCl (Desyrel) 100 mg PRN QHS PRN PO INSOMNIA 05/31/20 14:45 06/08/20 19:46 Quetiapine Fumarate (SEROquel) 25 mg TID PO 05/31/20 21:00 05/31/20 18:26 DC Quetiapine Fumarate (SEROquel) 25 mg 0900,1300,1700 PO 06/01/20 09:00 06/08/20 17:49 Mirtazapine (Remeron) 7.5 mg QHS PO 06/01/20 21:00 06/05/20 16:31 DC 06/04/20 19:42 Sertraline HCl (Zoloft) 25 mg DAILY PO 06/03/20 09:00 06/05/20 16:31 DC 06/05/20 09:40 Mirtazapine (Remeron) 15 mg QHS PO 06/05/20 21:00 06/08/20 19:46 Sertraline HCl (Zoloft) 50 mg DAILY PO 06/06/20 09:00 06/09/20 11:00 06/08/20 09:00 Sertraline HCl (Zoloft) 75 mg DAILY PO 06/10/20 09:00 I have reviewed the current psychotropics carefully including drug interactions. Risk benefit ratio favors no change other than as noted in my dictated progress note. Diagnosis: Problems: (1) Impulse control disorder, unspecified (2) Anxiety disorder, unspecified (3) Major neurocognitive disorder due to Parkinson's disease with behavioral disturbance (4) Dementia in Alzheimer's disease with depression (5) Dementia in Alzheimer's disease with delusions (6) Lewy body dementia with behavioral disturbance (7) Parkinson's disease HAYLEY GUZMAN MD Jun 08, 2020 21:17
--- NOTE | 2020-06-08 21:21 | NUR ---
Nursing Note: Pt wandering in the hallway at shift change. Pt restless and disorganized. Pt cooperative with assessment and compliant with medications administered whole. PRN Trazodone administered at HS for sleep. No agitation or aggression noted thus far this shift.
[2020-06-08] MEDS: ACETAMINOPHEN 325 MG TABLET PO PRN (23:57)
[2020-06-08] MEDS: METHYL SALICYLATE/MENTHOL TOPICAL OINTMENT 57GM TUBE. TP PRN (23:57)
[2020-06-09 04:14] LABS: ALBUMIN 3.3 g/dL (3.4-5.0); CALCIUM 8.9 mg/dL (8.5-10.1); TOTAL BILIRUBIN 0.8 mg/dL (0.2-1.0); TOTAL PROTEIN 6.5 g/dL (6.4-8.2)
[2020-06-09 04:15] LABS: POTASSIUM 3.7 mmol/L (3.5-5.1)
[2020-06-09] MEDS: MIDODRINE 5 MG TABLET PO SCH ×3 (05:38→17:38)
[2020-06-09 05:49] VITALS: BP 143/81
--- NOTE | 2020-06-09 07:41 | PDOC ---
Exam Note: Jason Note: This note is a late entry for 06/08/2020 covers elements not covered in my initial note. Subjective: The patient was seen face to face in the evening of 06/08/2020 with Kristian BLANC, discussed and reviewed the chart. He slept 7-1/2 hours previous night. Overall the patient seemed more confused, not very verbal, wandering, grabbing at things around him. Review of Systems: No CV, , pulmonary, eye, ENT system symptoms on review. Reliability poor. Mental Status Exam: The patient is oriented to himself. Insight and judgment, recent and remote memory, attention and concentration, fund of knowledge is poor consistent with his diagnosis mentioned in my initial note. Laboratory Data: Reviewed. 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 Anxiety disorder unspecified. Impulse control disorder unspecified. Parkinsons disease. Plan: No change from initial note. Assessment: Vital Signs/I&O: Vital Signs Date Time Temp Pulse Resp B/P (MAP) Pulse Ox O2 Delivery O2 Flow Rate FiO2 06/09/20 05:49 98.1 79 18 143/81 (101) 95 06/07/20 06:26 Room Air I & O 06/08/20 06/08/20 06/09/20 15:00 23:00 07:00 Intake Total 540 ml 240 ml Balance 540 ml 240 ml Current Medications: Meds: Current Medications Medications (Trade) Dose Ordered Sig/Rik Route PRN Reason Start Time Stop Time Status Last Admin Dose Admin Acetaminophen (Tylenol) 650 mg PRN Q6HRS PRN PO MILD PAIN / TEMP > 100.3'F 05/31/20 13:45 06/08/20 23:57 Multi-Ingredient Ointment (Analgesic [place]) 1 king PRN QID PRN TP MUSCLE PAIN 05/31/20 13:45 06/08/20 23:57 Al Hydroxide/Mg Hydroxide (Mylanta Plus Xs) 15 ml PRN AFTMEALHC PRN PO DYSPEPSIA 05/31/20 13:45 06/01/20 15:35 Magnesium Hydroxide (Milk Of Magnesia) 2,400 mg PRN QHS PRN PO CONSTIPATION 05/31/20 13:45 06/02/20 05:41 Acetaminophen (Tylenol) 650 mg PRN Q6HRS PRN PO MILD PAIN / TEMP > 100.3'F 05/31/20 14:30 UNV Carbidopa/Levodopa (Sinemet 25/100) 2 tab TID PO 05/31/20 21:00 06/08/20 19:46 Vitamin D (Vitamin D3) 50,000 unit WEEKLY PO 06/03/20 09:00 06/03/20 07:53 Docusate Sodium (Colace) 100 mg BID PO 05/31/20 21:00 06/08/20 19:45 Levetiracetam (Keppra) 500 mg BID PO 05/31/20 21:00 06/08/20 19:46 Al Hydroxide/Mg Hydroxide (Mylanta Plus Xs) 15 ml PRN AFTMEALHC PRN PO DYSPEPSIA 05/31/20 14:30 UNV Magnesium Hydroxide (Milk Of Magnesia) 2,400 mg PRN QHS PRN PO CONSTIPATION 05/31/20 14:30 UNV Midodrine (Proamatine) 5 mg [id number] PO 05/31/20 18:00 06/08/20 17:50 Pramipexole Dihydrochloride (miraPEX) 0.25 mg BID PO 05/31/20 21:00 06/08/20 19:46 Non-Formulary Medication (Methyl Salicylate/ Menthol (Analgesic [place])) 1 king PRN QID PRN TP MUSCLE PAIN 05/31/20 14:30 UNV Olanzapine (ZyPREXA ZYDIS) 2.5 mg PRN Q2HR PRN PO PSYCHOSIS 05/31/20 14:30 06/06/20 18:00 Quetiapine Fumarate (SEROquel) 100 mg QHS PO 05/31/20 21:00 06/08/20 19:46 Trazodone HCl (Desyrel) 100 mg PRN QHS PRN PO INSOMNIA 05/31/20 14:45 06/08/20 19:46 Quetiapine Fumarate (SEROquel) 25 mg TID PO 05/31/20 21:00 05/31/20 18:26 DC Quetiapine Fumarate (SEROquel) 25 mg 0900,1300,1700 PO 06/01/20 09:00 06/08/20 17:49 Mirtazapine (Remeron) 7.5 mg QHS PO 06/01/20 21:00 06/05/20 16:31 DC 06/04/20 19:42 Sertraline HCl (Zoloft) 25 mg DAILY PO 06/03/20 09:00 06/05/20 16:31 DC 06/05/20 09:40 Mirtazapine (Remeron) 15 mg QHS PO 06/05/20 21:00 06/08/20 19:46 Sertraline HCl (Zoloft) 50 mg DAILY PO 06/06/20 09:00 06/09/20 11:00 06/08/20 09:00 Sertraline HCl (Zoloft) 75 mg DAILY PO 06/10/20 09:00 I have reviewed the current psychotropics carefully including drug interactions. Risk benefit ratio favors no change other than as noted in my dictated progress note. Diagnosis: Problems: (1) Lewy body dementia with behavioral disturbance (2) Parkinson's disease (3) Dementia in Alzheimer's disease with delusions (4) Dementia in Alzheimer's disease with depression (5) Major neurocognitive disorder due to Parkinson's disease with behavioral disturbance (6) Anxiety disorder, unspecified (7) Impulse control disorder, unspecified (8) Major neurocognitive disorder HAYLEY GUZMAN MD Jun 09, 2020 07:41
[2020-06-09] MEDS: PRAMIPEXOLE 0.25 MG TABLET. PO SCH ×2 (09:57→19:55)
[2020-06-09] MEDS: DOCUSATE SODIUM 100 MG CAPSULE PO SCH ×2 (09:57→19:54)
[2020-06-09] MEDS: CARBIDOPA/LEVODOPA 25/100MG TABLET PO SCH ×3 (09:57→19:55)
[2020-06-09] MEDS: QUEtiapine 25 MG TABLET. PO SCH ×3 (09:57→17:39)
[2020-06-09] MEDS: levETIRAcetam 500 MG TABLET PO SCH ×2 (09:57→19:55)
[2020-06-09] MEDS: SERTRALINE 50 MG TABLET. PO SCH (09:57)
--- NOTE | 2020-06-09 16:24 | NUR ---
SHAKIRA spoke with pt /DPOA, Ema. Ema reports that she speaks with pt almost daily as does their dtr. Addendum: 06/09/20 at 1631 by BRIGIDA ROSENBERG note being continued as the save button was hit inadvertently when note was not complete. Edna pt dtr also speaks to pt daily. Ema just expressed concern that pt may not be happy and has stated that he wishes to come home because there are several other patients that are "crazy". Ema, further, reported that pt if fairly quiet when he talks to her and that is really not unusual as they didn't talk a whole lot even at home in the same room. 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 SHAKIRA confirmed with Ema that treatment team would be held tomorrow. Ema agreeable to sit in.
[2020-06-09 16:50] VITALS: BP 112/74
[2020-06-09] MEDS: MIRTAZAPINE 15 MG TABLET PO SCH (19:54)
[2020-06-09] MEDS: traZODone 100 MG TABLET. PO PRN (19:55)
[2020-06-09] MEDS: QUEtiapine 100 MG TABLET. PO SCH (19:55)
[2020-06-09] MEDS: METHYL SALICYLATE/MENTHOL TOPICAL OINTMENT 57GM TUBE. TP PRN (20:10)
--- NOTE | 2020-06-09 21:06 | PDOC ---
Exam Note: Jason Note: Please also refer to the separate dictated note~for this date of service dictated separately.~Patient seen individually. Discussed the patient with Nursing staff reviewed the chart.~Reviewed interim history and current functioning. Reviewed vital signs,~Labs/ Radiology~and current medications noted below. Continue current treatment with the changes noted in the dictated addendum note Assessment: Vital Signs/I&O: Vital Signs Date Time Temp Pulse Resp B/P (MAP) Pulse Ox O2 Delivery O2 Flow Rate FiO2 06/09/20 17:38 69 112/74 06/09/20 16:50 98.6 16 97 06/07/20 06:26 Room Air I & O 06/08/20 06/08/20 06/09/20 14:59 22:59 06:59 Intake Total 540 ml 240 ml Balance 540 ml 240 ml Current Medications: Meds: Current Medications Medications (Trade) Dose Ordered Sig/Rik Route PRN Reason Start Time Stop Time Status Last Admin Dose Admin Acetaminophen (Tylenol) 650 mg PRN Q6HRS PRN PO MILD PAIN / TEMP > 100.3'F 05/31/20 13:45 06/08/20 23:57 Multi-Ingredient Ointment (Analgesic [place]) 1 king PRN QID PRN TP MUSCLE PAIN 05/31/20 13:45 06/09/20 20:10 Al Hydroxide/Mg Hydroxide (Mylanta Plus Xs) 15 ml PRN AFTMEALHC PRN PO DYSPEPSIA 05/31/20 13:45 06/01/20 15:35 Magnesium Hydroxide (Milk Of Magnesia) 2,400 mg PRN QHS PRN PO CONSTIPATION 05/31/20 13:45 06/02/20 05:41 Acetaminophen (Tylenol) 650 mg PRN Q6HRS PRN PO MILD PAIN / TEMP > 100.3'F 05/31/20 14:30 UNV Carbidopa/Levodopa (Sinemet 25/100) 2 tab TID PO 05/31/20 21:00 06/09/20 19:55 Vitamin D (Vitamin D3) 50,000 unit WEEKLY PO 06/03/20 09:00 06/03/20 07:53 Docusate Sodium (Colace) 100 mg BID PO 05/31/20 21:00 06/09/20 19:54 Levetiracetam (Keppra) 500 mg BID PO 05/31/20 21:00 06/09/20 19:55 Al Hydroxide/Mg Hydroxide (Mylanta Plus Xs) 15 ml PRN AFTMEALHC PRN PO DYSPEPSIA 05/31/20 14:30 UNV Magnesium Hydroxide (Milk Of Magnesia) 2,400 mg PRN QHS PRN PO CONSTIPATION 05/31/20 14:30 UNV Midodrine (Proamatine) 5 mg [id number] PO 05/31/20 18:00 06/09/20 17:38 Pramipexole Dihydrochloride (miraPEX) 0.25 mg BID PO 05/31/20 21:00 06/09/20 19:55 Non-Formulary Medication (Methyl Salicylate/ Menthol (Analgesic [place])) 1 king PRN QID PRN TP MUSCLE PAIN 05/31/20 14:30 UNV Olanzapine (ZyPREXA ZYDIS) 2.5 mg PRN Q2HR PRN PO PSYCHOSIS 05/31/20 14:30 06/06/20 18:00 Quetiapine Fumarate (SEROquel) 100 mg QHS PO 05/31/20 21:00 06/09/20 19:55 Trazodone HCl (Desyrel) 100 mg PRN QHS PRN PO INSOMNIA 05/31/20 14:45 06/09/20 19:55 Quetiapine Fumarate (SEROquel) 25 mg TID PO 05/31/20 21:00 05/31/20 18:26 DC Quetiapine Fumarate (SEROquel) 25 mg 0900,1300,1700 PO 06/01/20 09:00 06/09/20 17:39 Mirtazapine (Remeron) 7.5 mg QHS PO 06/01/20 21:00 06/05/20 16:31 DC 06/04/20 19:42 Sertraline HCl (Zoloft) 25 mg DAILY PO 06/03/20 09:00 06/05/20 16:31 DC 06/05/20 09:40 Mirtazapine (Remeron) 15 mg QHS PO 06/05/20 21:00 06/09/20 19:54 Sertraline HCl (Zoloft) 50 mg DAILY PO 06/06/20 09:00 06/09/20 11:00 DC 06/09/20 09:57 Sertraline HCl (Zoloft) 75 mg DAILY PO 06/10/20 09:00 I have reviewed the current psychotropics carefully including drug interactions. Risk benefit ratio favors no change other than as noted in my dictated progress note. Diagnosis: Problems: (1) Anxiety disorder, unspecified (2) Impulse control disorder, unspecified (3) Major neurocognitive disorder due to Parkinson's disease with behavioral disturbance (4) Dementia in Alzheimer's disease with depression (5) Dementia in Alzheimer's disease with delusions (6) Major neurocognitive disorder (7) Parkinson's disease HAYLEY GUZMAN MD Jun 09, 2020 21:06
--- NOTE | 2020-06-09 22:40 | NUR ---
Nursing Note pt confused and disoriented. Med compliant and cooperative. Edgardo barton applied to neck, complains of pain. Massaged his neck also. Pt seems to be more comfortable. No behaviors.
[2020-06-10 06:14] VITALS: BP 135/76
[2020-06-10] MEDS: MIDODRINE 5 MG TABLET PO SCH ×3 (07:00→17:19)
--- NOTE | 2020-06-10 08:02 | PDOC ---
Exam Note: Jason Note: This note is a late entry for 06/09/2020 covers elements not covered in my initial note. Subjective: The patient was seen face to face in the evening of 06/09/2020 with Kristian BLANC, discussed and reviewed the chart. He slept 7-1/2 hours previous night. The patient has had no behaviors. He appears confused, was taking his pants off, wanting to take his briefs off since they were wet. Previous night he was complaining of right-sided pain. Received Tylenol and [place] with relief. Review of Systems: Ambulation impaired. No CV, , pulmonary, eye, ENT system symptoms on review. Mental Status Exam: The patient is oriented to himself. Eye contact is poor. Insight and judgment, recent and remote memory, attention and concentration, fund of knowledge is poor consistent with his diagnosis. Laboratory Data: Reviewed. 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 Anxiety disorder unspecified. Impulse control disorder unspecified. Parkinsons disease. Plan: No change from initial note. Assessment: Vital Signs/I&O: Vital Signs Date Time Temp Pulse Resp B/P (MAP) Pulse Ox O2 Delivery O2 Flow Rate FiO2 06/10/20 07:00 18 135/76 06/10/20 06:14 97.8 18 98 06/07/20 06:26 Room Air I & O 06/09/20 06/09/20 06/10/20 15:00 23:00 07:00 Intake Total 360 ml Balance 360 ml Current Medications: Meds: Current Medications Medications (Trade) Dose Ordered Sig/Rik Route PRN Reason Start Time Stop Time Status Last Admin Dose Admin Acetaminophen (Tylenol) 650 mg PRN Q6HRS PRN PO MILD PAIN / TEMP > 100.3'F 05/31/20 13:45 06/08/20 23:57 Multi-Ingredient Ointment (Analgesic [place]) 1 king PRN QID PRN TP MUSCLE PAIN 05/31/20 13:45 06/09/20 20:10 Al Hydroxide/Mg Hydroxide (Mylanta Plus Xs) 15 ml PRN AFTMEALHC PRN PO DYSPEPSIA 05/31/20 13:45 06/01/20 15:35 Magnesium Hydroxide (Milk Of Magnesia) 2,400 mg PRN QHS PRN PO CONSTIPATION 05/31/20 13:45 06/02/20 05:41 Acetaminophen (Tylenol) 650 mg PRN Q6HRS PRN PO MILD PAIN / TEMP > 100.3'F 05/31/20 14:30 UNV Carbidopa/Levodopa (Sinemet 25/100) 2 tab TID PO 05/31/20 21:00 06/09/20 19:55 Vitamin D (Vitamin D3) 50,000 unit WEEKLY PO 06/03/20 09:00 06/03/20 07:53 Docusate Sodium (Colace) 100 mg BID PO 05/31/20 21:00 06/09/20 19:54 Levetiracetam (Keppra) 500 mg BID PO 05/31/20 21:00 06/09/20 19:55 Al Hydroxide/Mg Hydroxide (Mylanta Plus Xs) 15 ml PRN AFTMEALHC PRN PO DYSPEPSIA 05/31/20 14:30 UNV Magnesium Hydroxide (Milk Of Magnesia) 2,400 mg PRN QHS PRN PO CONSTIPATION 05/31/20 14:30 UNV Midodrine (Proamatine) 5 mg [id number] PO 05/31/20 18:00 06/09/20 17:38 Pramipexole Dihydrochloride (miraPEX) 0.25 mg BID PO 05/31/20 21:00 06/09/20 19:55 Non-Formulary Medication (Methyl Salicylate/ Menthol (Analgesic [place])) 1 king PRN QID PRN TP MUSCLE PAIN 05/31/20 14:30 UNV Olanzapine (ZyPREXA ZYDIS) 2.5 mg PRN Q2HR PRN PO PSYCHOSIS 05/31/20 14:30 06/06/20 18:00 Quetiapine Fumarate (SEROquel) 100 mg QHS PO 05/31/20 21:00 06/09/20 19:55 Trazodone HCl (Desyrel) 100 mg PRN QHS PRN PO INSOMNIA 05/31/20 14:45 06/09/20 19:55 Quetiapine Fumarate (SEROquel) 25 mg TID PO 05/31/20 21:00 05/31/20 18:26 DC Quetiapine Fumarate (SEROquel) 25 mg 0900,1300,1700 PO 06/01/20 09:00 06/09/20 17:39 Mirtazapine (Remeron) 7.5 mg QHS PO 06/01/20 21:00 06/05/20 16:31 DC 06/04/20 19:42 Sertraline HCl (Zoloft) 25 mg DAILY PO 06/03/20 09:00 06/05/20 16:31 DC 06/05/20 09:40 Mirtazapine (Remeron) 15 mg QHS PO 06/05/20 21:00 06/09/20 19:54 Sertraline HCl (Zoloft) 50 mg DAILY PO 06/06/20 09:00 06/09/20 11:00 DC 06/09/20 09:57 Sertraline HCl (Zoloft) 75 mg DAILY PO 06/10/20 09:00 I have reviewed the current psychotropics carefully including drug interactions. Risk benefit ratio favors no change other than as noted in my dictated progress note. Diagnosis: Problems: (1) Impulse control disorder, unspecified (2) Anxiety disorder, unspecified (3) Major neurocognitive disorder due to Parkinson's disease with behavioral disturbance (4) Dementia in Alzheimer's disease with depression (5) Dementia in Alzheimer's disease with delusions (6) Parkinson's disease HAYLEY GUZMAN MD Jun 10, 2020 08:02
--- NOTE | 2020-06-10 09:46 | NUR ---
WEEKLY ACTIVITY THERAPY NOTE Date of Admission: 05/31/2020 Date of AT Assessment: 06/02/20 Precipitating behaviors that initiated intake and admission: agitated, verbally aggressive towards staff, impulsive, poor safety, grabbing/swatting at staff, angry, resists meds at times Goal aimed: increase time management and socialization skills Initial Goal: Pt will participate in at least one individual or group Activity Therapy session per week. Weekly progress towards goal: achieved, 05/24 Group participation level: 2 mod Weekly highlights: independently played Seeqpod on Sunday Behaviors observed: similar behaviors to last week- slower pace, quiet, extra time to process and share thoughts Plan: no change to goal Beneficial adaptations:
[2020-06-10] MEDS: PRAMIPEXOLE 0.25 MG TABLET. PO SCH ×2 (10:51→19:32)
[2020-06-10] MEDS: levETIRAcetam 500 MG TABLET PO SCH ×2 (10:51→19:32)
[2020-06-10] MEDS: DOCUSATE SODIUM 100 MG CAPSULE PO SCH ×2 (10:51→19:28)
[2020-06-10] MEDS: CHOLECALCIFEROL (VITAMIN D3) 50,000 UNIT CAPSULE PO SCH (10:51)
[2020-06-10] MEDS: CARBIDOPA/LEVODOPA 25/100MG TABLET PO SCH ×3 (10:51→19:32)
[2020-06-10] MEDS: QUEtiapine 25 MG TABLET. PO SCH ×3 (10:51→17:19)
[2020-06-10] MEDS: SERTRALINE 25 MG TABLET. PO SCH (10:53)
--- NOTE | 2020-06-10 12:08 | TX PLAN ---
Interdisciplinary Tx Plan Admission Information May 31, 2020 at 11:40 Legal Status (on Admission): Voluntary DPOA/Guardian Name: Radha El (Rosie)- Contact Other Contact Name: Faraz El (Steve) Other Contact Verified Code Status: Full Code Allergies: Coded Allergies: No Known Drug Allergies (Unverified , 05/19/20) Diagnoses Primary Diagnosis: (1) Impulse control disorder, unspecified (2) Anxiety disorder, unspecified (3) Major neurocognitive disorder due to Parkinson's disease with behavioral disturbance (4) Dementia in Alzheimer's disease with depression (5) Dementia in Alzheimer's disease with delusions (6) Lewy body dementia with behavioral disturbance (7) Major neurocognitive disorder Reasons for Admission: Delusions, Agitated, Hallucinations, Confusion/Disoriented Problem in Patient's Words: Per pt , "he has parkinson's and has an appointment scheduled with Dr. Keron barry neurologist at [facility] on 08/17/20. He has started to see things or hear things that aren't there. He was thinking that I was having affairs in front of him. He was becoming increasingly agitated and had even threatened to hit me. In front of hospital staff, he had called me an inappropriate name. These behaviors have come on all of the sudden within the past couple of months." Additional Admission Comments: Per intake record, pt became agitated with his at home, experiencing delusions, visual hallucinations, thinks his is trying to kill him, threatened to hit , yelling for help, rushed outside in a blizzard, and is paranoid. Problems Active Problems: Hallucinations, delusions, agitation Inactive Problems: None Pt Strengths/Limitations Ability for [place]: Poor Cognitive Functioning/Ability: Fair Communication Skills/Ability: Good Financial Resources: Good Insight/Judgement: Poor Intellectual Ability: Good Physical Health: Fair Social Skills: Good Stability in Family: Good Stability in School/Work: Good Verbal Skills: Good Discharge Criteria Discharge Criteria: No need for close observ., Able to meet health needs, Adequate arrangements @DC, Adequate self-care, Verbal commit med comply, Improved behavior, Improved mood/thought Other Discharge Comments: None at this time Preliminary Discharge Plan Preliminary DC Plan: Home Special Precautions Special Precautions: Agitation/Assault Fall Risk: Moderate Initial D/C Plan Plan is return home wtbritney bass. Identified Discharge Needs: Pt is scheduled with Dr. Cabrales on 08/17/20 and is encouraged to keep that appointment. Currently Utilized Resources Currently Utilized Resources/P: PCP is Dr. Trevino /DPOA is Radha"Emapriti Nelsone Neurologist is Dr. Cabrales Referrals Community Resources: None noted at this time. Identified Problems/Hx/Goals Objectives/Short-Term Goals Short Term Goals: Control abnormal behavior, Dec. Hallucination/Delus, Dec. Outbursts, Medication Stabilization, Monitor Med Effects, Prevent Deterioration Short Term Goals in Patient's: "Have medications be looked at, monitored, and stablized until we can get into our appointment on 08/17/[address] Cabrales. Interventions/Frequency Staff Interventions/Frequency&: Psychiatry to assess pt three times per week for medication management. Nursing to assess behaviors, monitor medications, and complete 15 minute checks daily. Social work to see pt at least twice weekly to aid in return home. Activities to encourage pt to participate in group activities daily. 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 Education: Bachelors degree from [employer] in accounting. Community Follow-up PCP Neurologist Community Provider/Family Inpu: /DPOA, Ema, provided input at treatment team meeting and gave insight to behaviors noticed, history of medications, and upcoming appt with Dr. Cabrales. 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 He averages between six to seven hours of sleep per night. Pt is able to take clothes off without assistance, but does need some help to get clothes on; especially order puller shirts. Pt participated in today's treatment team and stated that this is how pt was at home as well. Pt appears to be somewhat more alert per nursing account. Pt tends to wonder around the unit. Pt has not shown any aggression or agitation and he is easily directed to join group or go to the dinning area for breakfast, lunch, or dinner. Pt is compliant with medication and ADLs. Pt white blood cell count was elevated at 13.1 when last taken indicating a possible infection, therefore, consult to the open cut examiner is being made. Pt has been taking Trazadone at bedtime for sleep as per at home he was only getting a couple of hours of sleep per night. It appears, he is now sleeping better with this. Pt feels that she is capable of handling pt at home and wants to follow through with the scheduled neurology appointment in July at . SW will make contact with the neurology department at to see about the possibility of getting pt in sooner than the July scheduled appointment. If not doctor is okay to discharge pt with the 30 day scripts plus two additional refills. BRIGIDA POWER Jun 10, 2020 12:08
--- NOTE | 2020-06-10 14:23 | NUR ---
Following today's treatment team, SHAKIRA reached out to Dr. Cabrales's office to see if pt's scheduled July appointment could be bumped up as pt nears discharge from [facility]. The steam generating powerplant mechanic explained that for a new pt appointment the July appointment was the soonest they could get pt in and that they were booked out until September. SW indicated that it was important then to keep that scheduled appointment, but if there was something that opened up sooner, to please make sure pt was on the wait list. Hot Air Furnace Installer And Repairer ensured SW that pt was on the wait list and stated that a new patient packet had been mailed to pt , Ema. SHAKIRA, further, researched information on the [employer] and made contact regarding future possible resources for pt and family. SHAKIRA then contacted pt , Ema, to relay above researched information. Ema expressed interest in holding out for the July scheduled neurology appointment at . Ema explained that she has already returned the new patient packet to neurology department for the July appointment. SHAKIRA encouraged Ema to follow-up to ensure that received that packet so that upon their arrival in July it was definitely there. Ema was agreeable to contact to make sure that it had been received. Further, SHAKIRA provided Ema with the website [email or web address] that might be of interest to her in the future for further resources. Ema appreciative of assistance and resource.
--- NOTE | 2020-06-10 15:43 | NUR ---
Patient has been calm, compliant, and pleasantly confused throughout this shift. He spent most of his time wandering in the hallway and sitting next to the nurses' station. Will continue to monitor and report to oncoming shift.
[2020-06-10 16:08] VITALS: BP 123/81
[2020-06-10] MEDS: MIRTAZAPINE 15 MG TABLET PO SCH (19:28)
[2020-06-10] MEDS: QUEtiapine 100 MG TABLET. PO SCH (19:28)
[2020-06-10] MEDS: traZODone 100 MG TABLET. PO PRN (19:48)
--- NOTE | 2020-06-10 21:05 | PDOC ---
Exam Note: Jason Note: Please also refer to the separate dictated note~for this date of service dictated separately.~Patient seen individually. Discussed the patient with Nursing staff reviewed the chart.~Reviewed interim history and current functioning. Reviewed vital signs,~Labs/ Radiology~and current medications noted below. Continue current treatment with the changes noted in the dictated addendum note Assessment: Vital Signs/I&O: Vital Signs Date Time Temp Pulse Resp B/P (MAP) Pulse Ox O2 Delivery O2 Flow Rate FiO2 06/10/20 17:19 77 123/81 06/10/20 16:08 97.5 18 97 06/07/20 06:26 Room Air I & O 06/09/20 06/09/20 06/10/20 14:59 22:59 06:59 Intake Total 360 ml Balance 360 ml Current Medications: Meds: Current Medications Medications (Trade) Dose Ordered Sig/Rik Route PRN Reason Start Time Stop Time Status Last Admin Dose Admin Acetaminophen (Tylenol) 650 mg PRN Q6HRS PRN PO MILD PAIN / TEMP > 100.3'F 05/31/20 13:45 06/08/20 23:57 Multi-Ingredient Ointment (Analgesic [place]) 1 king PRN QID PRN TP MUSCLE PAIN 05/31/20 13:45 06/09/20 20:10 Al Hydroxide/Mg Hydroxide (Mylanta Plus Xs) 15 ml PRN AFTMEALHC PRN PO DYSPEPSIA 05/31/20 13:45 06/01/20 15:35 Magnesium Hydroxide (Milk Of Magnesia) 2,400 mg PRN QHS PRN PO CONSTIPATION 05/31/20 13:45 06/02/20 05:41 Acetaminophen (Tylenol) 650 mg PRN Q6HRS PRN PO MILD PAIN / TEMP > 100.3'F 05/31/20 14:30 UNV Carbidopa/Levodopa (Sinemet 25/100) 2 tab TID PO 05/31/20 21:00 06/10/20 19:32 Vitamin D (Vitamin D3) 50,000 unit WEEKLY PO 06/03/20 09:00 06/10/20 10:51 Docusate Sodium (Colace) 100 mg BID PO 05/31/20 21:00 06/10/20 19:28 Levetiracetam (Keppra) 500 mg BID PO 05/31/20 21:00 06/10/20 19:32 Al Hydroxide/Mg Hydroxide (Mylanta Plus Xs) 15 ml PRN AFTMEALHC PRN PO DYSPEPSIA 05/31/20 14:30 UNV Magnesium Hydroxide (Milk Of Magnesia) 2,400 mg PRN QHS PRN PO CONSTIPATION 05/31/20 14:30 UNV Midodrine (Proamatine) 5 mg [id number] PO 05/31/20 18:00 06/10/20 17:19 Pramipexole Dihydrochloride (miraPEX) 0.25 mg BID PO 05/31/20 21:00 06/10/20 19:32 Non-Formulary Medication (Methyl Salicylate/ Menthol (Analgesic [place])) 1 king PRN QID PRN TP MUSCLE PAIN 05/31/20 14:30 UNV Olanzapine (ZyPREXA ZYDIS) 2.5 mg PRN Q2HR PRN PO PSYCHOSIS 05/31/20 14:30 06/06/20 18:00 Quetiapine Fumarate (SEROquel) 100 mg QHS PO 05/31/20 21:00 06/10/20 19:28 Trazodone HCl (Desyrel) 100 mg PRN QHS PRN PO INSOMNIA 05/31/20 14:45 06/10/20 19:48 Quetiapine Fumarate (SEROquel) 25 mg TID PO 05/31/20 21:00 05/31/20 18:26 DC Quetiapine Fumarate (SEROquel) 25 mg 0900,1300,1700 PO 06/01/20 09:00 06/10/20 17:19 Mirtazapine (Remeron) 7.5 mg QHS PO 06/01/20 21:00 06/05/20 16:31 DC 06/04/20 19:42 Sertraline HCl (Zoloft) 25 mg DAILY PO 06/03/20 09:00 06/05/20 16:31 DC 06/05/20 09:40 Mirtazapine (Remeron) 15 mg QHS PO 06/05/20 21:00 06/10/20 19:28 Sertraline HCl (Zoloft) 50 mg DAILY PO 06/06/20 09:00 06/09/20 11:00 DC 06/09/20 09:57 Sertraline HCl (Zoloft) 75 mg DAILY PO 06/10/20 09:00 06/10/20 10:53 Current Medications Medications (Trade) Dose Ordered Sig/Rik Route PRN Reason Start Time Stop Time Status Last Admin Dose Admin Sertraline HCl (Zoloft) 75 mg DAILY PO 06/10/20 09:00 06/10/20 10:53 I have reviewed the current psychotropics carefully including drug interactions. Risk benefit ratio favors no change other than as noted in my dictated progress note. Diagnosis: Problems: (1) Dementia in Alzheimer's disease with depression (2) Dementia in Alzheimer's disease with delusions (3) Parkinson's disease (4) Anxiety disorder, unspecified (5) Impulse control disorder, unspecified (6) Major neurocognitive disorder due to Parkinson's disease with behavioral disturbance HAYLEY GUZMAN MD Jun 10, 2020 21:05
--- NOTE | 2020-06-10 23:15 | NUR ---
Nursing Note Pt agitated and running in the hallway earlier. HS meds given with trazodone. Pt put himself on the floor in private hallway, pulled his pants down to his ankles and refused to get up for ADL's. Staff assisted him to a standing position and walked him to his room, used the bathroom now in bed resting. Gelatinous foul smelling stool noted to his brief in smears.
[2020-06-11 05:09] LABS: BILIRUBIN,URINE NEG (NEG); CLARITY,URINE CLEAR; COLOR,URINE YELLOW; GLUCOSE,URINE NEG (NEG)
[2020-06-11 05:10] LABS: BACTERIA,URINE 0 /HPF (0-FEW); NITRITE,URINE NEG (NEG); RBC,URINE 0 /HPF (0-2); SQUAMOUS EPITHELIAL CELL,UR OCC /LPF; UROBILINOGEN,URINE 0.2 mg/dL (0.2 mg/dL); WBC,URINE OCC /HPF (0-4)
[2020-06-11 05:46] VITALS: BP 124/79
[2020-06-11] MEDS: MIDODRINE 5 MG TABLET PO SCH ×3 (08:08→17:09)
[2020-06-11] MEDS: SERTRALINE 25 MG TABLET. PO SCH (08:08)
[2020-06-11] MEDS: DOCUSATE SODIUM 100 MG CAPSULE PO SCH ×2 (08:09→19:36)
[2020-06-11] MEDS: PRAMIPEXOLE 0.25 MG TABLET. PO SCH ×2 (08:09→19:35)
[2020-06-11] MEDS: levETIRAcetam 500 MG TABLET PO SCH ×2 (08:09→19:35)
[2020-06-11] MEDS: QUEtiapine 25 MG TABLET. PO SCH ×3 (08:09→17:08)
[2020-06-11] MEDS: CARBIDOPA/LEVODOPA 25/100MG TABLET PO SCH ×3 (08:09→19:35)
--- NOTE | 2020-06-11 08:23 | PDOC ---
Exam Note: Jason Note: This note is a late entry for 06/10/2020 covers elements not covered in my initial note. Subjective: The patient was seen face to face in the morning of 06/10/2020 for a treatment team meeting with Yamilka Chaparro, Karine Brooks and Sandra (social work specialist), Mandy Barnes, activity therapy and Kristian BLANC, discussed and reviewed the chart. He slept 6 hours previous night. The patients Adriana attended the lengthy conference. We discussed the patients diagnoses, progress. He continues to wander the hallways and rooms, picking up things from the floor as if he is having some intermittent hallucinations. He does redirect. He strips himself but it seems to be that this happens when he has to go to the restroom. Review of Systems: Ambulation impaired. No CV, , pulmonary, eye, ENT system symptoms on review. Reliability poor. Mental Status Exam: The patient is oriented to himself. Insight and judgment, recent and remote memory, attention and concentration, fund of knowledge is poor consistent with his diagnosis. Laboratory Data: Reviewed. 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 Anxiety disorder unspecified. Impulse control disorder unspecified. Parkinsons disease. Plan: No change from initial note. Assessment: Vital Signs/I&O: Vital Signs Date Time Temp Pulse Resp B/P (MAP) Pulse Ox O2 Delivery O2 Flow Rate FiO2 06/11/20 08:08 82 124/79 06/11/20 05:46 97.8 24 99 06/07/20 06:26 Room Air I & O 06/10/20 06/10/20 06/11/20 14:59 22:59 06:59 Intake Total 0 ml 120 ml Balance 0 ml 120 ml Labs: Laboratory Tests Test 06/11/20 04:40 Urine Collection Type Unknown Urine Color Yellow Urine Clarity Clear Urine pH 6.0 Urine Specific [place] >=1.030 Urine Protein Trace (NEG-TRACE) Urine Glucose (UA) Neg mg/dL (NEG) Urine Ketones (Stick) 80 mg/dL (NEG) Urine Blood Neg (NEG) Urine Nitrite Neg (NEG) Urine Bilirubin Neg (NEG) Urine Urobilinogen Dipstick 0.2 mg/dL (0.2 mg/dL) Urine Leukocyte Esterase Neg (NEG) Urine RBC 0 /HPF (0-2) Urine WBC Occ /HPF (0-4) Urine Squamous Epithelial Cells Occ /LPF Urine Bacteria 0 /HPF (0-FEW) Current Medications: Meds: Laboratory Tests Test 06/11/20 04:40 Urine Collection Type Unknown Urine Color Yellow Urine Clarity Clear Urine pH 6.0 Urine Specific [place] >=1.030 Urine Protein Trace Urine Glucose (UA) Neg mg/dL Urine Ketones (Stick) 80 mg/dL Urine Blood Neg Urine Nitrite Neg Urine Bilirubin Neg Urine Urobilinogen Dipstick 0.2 mg/dL Urine Leukocyte Esterase Neg Urine RBC 0 /HPF Urine WBC Occ /HPF Urine Squamous Epithelial Cells Occ /LPF Urine Bacteria 0 /HPF Current Medications Medications (Trade) Dose Ordered Sig/Rik Route PRN Reason Start Time Stop Time Status Last Admin Dose Admin Acetaminophen (Tylenol) 650 mg PRN Q6HRS PRN PO MILD PAIN / TEMP > 100.3'F 05/31/20 13:45 06/08/20 23:57 Multi-Ingredient Ointment (Analgesic [place]) 1 king PRN QID PRN TP MUSCLE PAIN 05/31/20 13:45 06/09/20 20:10 Al Hydroxide/Mg Hydroxide (Mylanta Plus Xs) 15 ml PRN AFTMEALHC PRN PO DYSPEPSIA 05/31/20 13:45 06/01/20 15:35 Magnesium Hydroxide (Milk Of Magnesia) 2,400 mg PRN QHS PRN PO CONSTIPATION 05/31/20 13:45 06/02/20 05:41 Acetaminophen (Tylenol) 650 mg PRN Q6HRS PRN PO MILD PAIN / TEMP > 100.3'F 05/31/20 14:30 UNV Carbidopa/Levodopa (Sinemet 25/100) 2 tab TID PO 05/31/20 21:00 06/11/20 08:09 Vitamin D (Vitamin D3) 50,000 unit WEEKLY PO 06/03/20 09:00 06/10/20 10:51 Docusate Sodium (Colace) 100 mg BID PO 05/31/20 21:00 06/11/20 08:09 Levetiracetam (Keppra) 500 mg BID PO 05/31/20 21:00 06/11/20 08:09 Al Hydroxide/Mg Hydroxide (Mylanta Plus Xs) 15 ml PRN AFTMEALHC PRN PO DYSPEPSIA 05/31/20 14:30 UNV Magnesium Hydroxide (Milk Of Magnesia) 2,400 mg PRN QHS PRN PO CONSTIPATION 05/31/20 14:30 UNV Midodrine (Proamatine) 5 mg [id number] PO 05/31/20 18:00 06/11/20 08:08 Pramipexole Dihydrochloride (miraPEX) 0.25 mg BID PO 05/31/20 21:00 06/11/20 08:09 Non-Formulary Medication (Methyl Salicylate/ Menthol (Analgesic [place])) 1 king PRN QID PRN TP MUSCLE PAIN 05/31/20 14:30 UNV Olanzapine (ZyPREXA ZYDIS) 2.5 mg PRN Q2HR PRN PO PSYCHOSIS 05/31/20 14:30 06/06/20 18:00 Quetiapine Fumarate (SEROquel) 100 mg QHS PO 05/31/20 21:00 06/10/20 19:28 Trazodone HCl (Desyrel) 100 mg PRN QHS PRN PO INSOMNIA 05/31/20 14:45 06/10/20 19:48 Quetiapine Fumarate (SEROquel) 25 mg TID PO 05/31/20 21:00 05/31/20 18:26 DC Quetiapine Fumarate (SEROquel) 25 mg 0900,1300,1700 PO 06/01/20 09:00 06/11/20 08:09 Mirtazapine (Remeron) 7.5 mg QHS PO 06/01/20 21:00 06/05/20 16:31 DC 06/04/20 19:42 Sertraline HCl (Zoloft) 25 mg DAILY PO 06/03/20 09:00 06/05/20 16:31 DC 06/05/20 09:40 Mirtazapine (Remeron) 15 mg QHS PO 06/05/20 21:00 06/10/20 19:28 Sertraline HCl (Zoloft) 50 mg DAILY PO 06/06/20 09:00 06/09/20 11:00 DC 06/09/20 09:57 Sertraline HCl (Zoloft) 75 mg DAILY PO 06/10/20 09:00 06/11/20 08:08 Current Medications Medications (Trade) Dose Ordered Sig/Rik Route PRN Reason Start Time Stop Time Status Last Admin Dose Admin Sertraline HCl (Zoloft) 75 mg DAILY PO 06/10/20 09:00 06/11/20 08:08 I have reviewed the current psychotropics carefully including drug interactions. Risk benefit ratio favors no change other than as noted in my dictated progress note. Diagnosis: Problems: (1) Impulse control disorder, unspecified (2) Anxiety disorder, unspecified (3) Major neurocognitive disorder due to Parkinson's disease with behavioral disturbance (4) Dementia in Alzheimer's disease with depression (5) Dementia in Alzheimer's disease with delusions (6) Major neurocognitive disorder (7) Parkinson's disease HAYLEY GUZMAN MD Jun 11, 2020 08:23
--- NOTE | 2020-06-11 10:24 | NUR ---
Pt has been appropriate and med complaint this shift. He has been absent of disruptive behaviors thus far. He is appropriate in his interactions with pts/staff. He has been wandering frequently, at times found in other pt's rooms. Multiple staff have encouraged him to eat breakfast, however he verbalized a desire to not eat this morning. He is difficult to assess d/t his primarily limited/reduced verbal state. He has been absent of SI/HI behaviors, absent of disturbance/distraction of potential internal stimuli. He has voiced no c/o abd discomfort or pain. CDiff results are pending. He has not had a BM this morning for staff to observe or assess it's characteristics. Will pass on to the next shift.
--- NOTE | 2020-06-11 13:47 | NUR ---
This nurse spoke with Dr Rome via phone concerning pt reports within past day of abd pain and liquid/slimy stool. Cdiff results still pending. Dr Rome gave the following orders: Repeat CBC, BMP, KUB. Orders read back and verified.
[2020-06-11 14:06] LABS: BASO % 0 % (0-3); EOS # 0.1 x10^3/uL (0.0-0.7); EOS % 1 % (0-3); HEMATOCRIT 43.2 % (39.0-53.0); HEMOGLOBIN 14.5 g/dL (13.0-17.5); LYMPH # 1.1 x10^3/uL (1.0-4.8); LYMPH % 10 % (24-48); MEAN CORPUSCULAR HEMOGLOBIN 30 pg (25-35); MEAN CORPUSCULAR HGB CONC 34 g/dL (31-37); MEAN CORPUSCULAR VOLUME 89 fL (79-100); MONO # 0.8 x10^3/uL (0.0-1.1); MONO % 7 % (0-9); NEUT # 9.9 x10^3uL (1.8-7.7); NEUT % 83 % (31-73); PLATELET COUNT 316 x10^3/uL (140-400); RED BLOOD COUNT 4.88 x10^6/uL (4.30-5.70); RED CELL DISTRIBUTION WIDTH 13.7 % (11.5-14.5); WHITE BLOOD COUNT 11.9 x10^3/uL (4.0-11.0)
[2020-06-11 14:40] LABS: CALCIUM 9.3 mg/dL (8.5-10.1); POTASSIUM 3.6 mmol/L (3.5-5.1)
[2020-06-11] MEDS: ACETAMINOPHEN 325 MG TABLET PO PRN (14:41)
--- NOTE | 2020-06-11 14:46 | NUR ---
Pt c/o pain in the BLE. He has been amb a lot today, going up and down the halls and into other patient's rooms. PRN Acetaminophen 650 mg PO administered. Pt encouraged to sit or lay down for a while to rest his legs and not continue to aggravate the pain, however he declined.
[2020-06-11 15:33] VITALS: BP 128/75
--- NOTE | 2020-06-11 16:48 | RAD ---
XR ABDOMEN 1V Clinical Indication: Reason: Abd pain, liquid stool Comparison: None. Findings: A large stool ball is noted in the rectum with moderate distention. There is moderate colon stool vol ume. There is no dilated small bowel. Cardiac pacer wires are seen at the edge of the [id number]. There is no obvious organomegaly. There are surgical clips in the pelvis. There is no acute bone abno rmality. IMPRESSION: There is a large stool ball moderately distending the rectum suggesting fecal impaction. Electronically signed by: Manuel Tipton MD (06/11/2020 4:46 PM) [facility]
[2020-06-11] MEDS: MAGNESIUM HYDROXIDE 2,400 MG/30 ML ORAL.SUSP. PO PRN (16:49)
--- NOTE | 2020-06-11 16:49 | NUR ---
Pt is attempting to have a BM but is unable to do so. There is a liquid smear in his brief but he is still attempting to go with difficulty. PRN Milk of Mag administered mixed with warm prune juice and a little bit of black coffee (a "Brown Cow").
--- NOTE | 2020-06-11 17:48 | NUR ---
Attempt at digital removal of fecal impaction performed. Pt was placed in side-lying position on R side with the assistance of 2 CNAs. Explanation of procedure provided to pt by this nurse. A gloved, lubricated index finger was inserted into the rectum and fecal matter was not felt in the rectal vault. Index finger removed and a gloved, lubricated middle finger was inserted into the rectum and fecal matter was not felt in the rectal vault. Attempt ended and pt was cleaned up and brief put back on. Pt tolerated attempt well; support and encouragement provided by all staff involved. Will pass on to the next shift.
[2020-06-11] MEDS ORDERED: MAGNESIUM CITRATE 296 ML SOLUTION. PO ONE (19:30)
[2020-06-11] MEDS: QUEtiapine 100 MG TABLET. PO SCH (19:35)
[2020-06-11] MEDS: MIRTAZAPINE 15 MG TABLET PO SCH (19:36)
--- NOTE | 2020-06-11 20:54 | PDOC ---
Exam Note: Jason Note: Please also refer to the separate dictated note~for this date of service dictated separately.~Patient seen individually. Discussed the patient with Nursing staff reviewed the chart.~Reviewed interim history and current functioning. Reviewed vital signs,~Labs/ Radiology~and current medications noted below. Continue current treatment with the changes noted in the dictated addendum note Assessment: Vital Signs/I&O: Vital Signs Date Time Temp Pulse Resp B/P (MAP) Pulse Ox O2 Delivery O2 Flow Rate FiO2 06/11/20 17:09 96 128/75 06/11/20 15:33 96.7 16 95 06/07/20 06:26 Room Air I & O 06/10/20 06/10/20 06/11/20 14:59 22:59 06:59 Intake Total 0 ml 120 ml Balance 0 ml 120 ml Labs: Laboratory Tests Test 06/11/20 04:40 06/11/20 13:58 Urine Collection Type Unknown Urine Color Yellow Urine Clarity Clear Urine pH 6.0 Urine Specific [place] >=1.030 Urine Protein Trace (NEG-TRACE) Urine Glucose (UA) Neg mg/dL (NEG) Urine Ketones (Stick) 80 mg/dL (NEG) Urine Blood Neg (NEG) Urine Nitrite Neg (NEG) Urine Bilirubin Neg (NEG) Urine Urobilinogen Dipstick 0.2 mg/dL (0.2 mg/dL) Urine Leukocyte Esterase Neg (NEG) Urine RBC 0 /HPF (0-2) Urine WBC Occ /HPF (0-4) Urine Squamous Epithelial Cells Occ /LPF Urine Bacteria 0 /HPF (0-FEW) Clostridioides difficile Toxin (PCR) Negative (NEGATIVE) White Blood Count 11.9 x10^3/uL (4.0-11.0) H Red Blood Count 4.88 x10^6/uL (4.30-5.70) Hemoglobin 14.5 g/dL (13.0-17.5) Hematocrit 43.2 % (39.0-53.0) Mean Corpuscular Volume 89 fL (79-100) Mean Corpuscular Hemoglobin 30 pg (25-35) Mean Corpuscular Hemoglobin Concent 34 g/dL (31-37) Red Cell Distribution Width 13.7 % (11.5-14.5) Platelet Count 316 x10^3/uL (140-400) Neutrophils (%) (Auto) 83 % (31-73) H Lymphocytes (%) (Auto) 10 % (24-48) L Monocytes (%) (Auto) 7 % (0-9) Eosinophils (%) (Auto) 1 % (0-3) Basophils (%) (Auto) 0 % (0-3) Neutrophils # (Auto) 9.9 x10^3uL (1.8-7.7) H Lymphocytes # (Auto) 1.1 x10^3/uL (1.0-4.8) Monocytes # (Auto) 0.8 x10^3/uL (0.0-1.1) Eosinophils # (Auto) 0.1 x10^3/uL (0.0-0.7) Basophils # (Auto) 0.0 x10^3/uL (0.0-0.2) Sodium Level 139 mmol/L (136-145) Potassium Level 3.6 mmol/L (3.5-5.1) Chloride Level 103 mmol/L (98-107) Carbon Dioxide Level 29 mmol/L (21-32) Anion Gap 7 (6-14) Blood Urea Nitrogen 22 mg/dL (8-26) Creatinine 1.0 mg/dL (0.7-1.3) Estimated GFR (Cockcroft-Gault) 75.0 Glucose Level 134 mg/dL (70-99) H Calcium Level 9.3 mg/dL (8.5-10.1) Current Medications: Meds: Laboratory Tests Test 06/11/20 04:40 06/11/20 13:58 Urine Collection Type Unknown Urine Color Yellow Urine Clarity Clear Urine pH 6.0 Urine Specific [place] >=1.030 Urine Protein Trace Urine Glucose (UA) Neg mg/dL Urine Ketones (Stick) 80 mg/dL Urine Blood Neg Urine Nitrite Neg Urine Bilirubin Neg Urine Urobilinogen Dipstick 0.2 mg/dL Urine Leukocyte Esterase Neg Urine RBC 0 /HPF Urine WBC Occ /HPF Urine Squamous Epithelial Cells Occ /LPF Urine Bacteria 0 /HPF Clostridium difficile Toxin (PCR) Negative White Blood Count 11.9 x10^3/uL Red Blood Count 4.88 x10^6/uL Hemoglobin 14.5 g/dL Hematocrit 43.2 % Mean Corpuscular Volume 89 fL Mean Corpuscular Hemoglobin 30 pg Mean Corpuscular Hemoglobin Concent 34 g/dL Red Cell Distribution Width 13.7 % Platelet Count 316 x10^3/uL Neutrophils (%) (Auto) 83 % Lymphocytes (%) (Auto) 10 % Monocytes (%) (Auto) 7 % Eosinophils (%) (Auto) 1 % Basophils (%) (Auto) 0 % Neutrophils # (Auto) 9.9 x10^3uL Lymphocytes # (Auto) 1.1 x10^3/uL Monocytes # (Auto) 0.8 x10^3/uL Eosinophils # (Auto) 0.1 x10^3/uL Basophils # (Auto) 0.0 x10^3/uL Sodium Level 139 mmol/L Potassium Level 3.6 mmol/L Chloride Level 103 mmol/L Carbon Dioxide Level 29 mmol/L Anion Gap 7 Blood Urea Nitrogen 22 mg/dL Creatinine 1.0 mg/dL Estimated GFR (Cockcroft-Gault) 75.0 Glucose Level 134 mg/dL Calcium Level 9.3 mg/dL Current Medications Medications (Trade) Dose Ordered Sig/Rik Route PRN Reason Start Time Stop Time Status Last Admin Dose Admin Acetaminophen (Tylenol) 650 mg PRN Q6HRS PRN PO MILD PAIN / TEMP > 100.3'F 05/31/20 13:45 06/11/20 14:41 Multi-Ingredient Ointment (Analgesic [place]) 1 king PRN QID PRN TP MUSCLE PAIN 05/31/20 13:45 06/09/20 20:10 Al Hydroxide/Mg Hydroxide (Mylanta Plus Xs) 15 ml PRN AFTMEALHC PRN PO DYSPEPSIA 05/31/20 13:45 06/01/20 15:35 Magnesium Hydroxide (Milk Of Magnesia) 2,400 mg PRN QHS PRN PO CONSTIPATION 05/31/20 13:45 06/11/20 16:49 Acetaminophen (Tylenol) 650 mg PRN Q6HRS PRN PO MILD PAIN / TEMP > 100.3'F 05/31/20 14:30 UNV Carbidopa/Levodopa (Sinemet 25/100) 2 tab TID PO 05/31/20 21:00 06/11/20 19:35 Vitamin D (Vitamin D3) 50,000 unit WEEKLY PO 06/03/20 09:00 06/10/20 10:51 Docusate Sodium (Colace) 100 mg BID PO 05/31/20 21:00 06/11/20 19:36 Levetiracetam (Keppra) 500 mg BID PO 05/31/20 21:00 06/11/20 19:35 Al Hydroxide/Mg Hydroxide (Mylanta Plus Xs) 15 ml PRN AFTMEALHC PRN PO DYSPEPSIA 05/31/20 14:30 UNV Magnesium Hydroxide (Milk Of Magnesia) 2,400 mg PRN QHS PRN PO CONSTIPATION 05/31/20 14:30 UNV Midodrine (Proamatine) 5 mg [id number] PO 05/31/20 18:00 06/11/20 17:09 Pramipexole Dihydrochloride (miraPEX) 0.25 mg BID PO 05/31/20 21:00 06/11/20 19:35 Non-Formulary Medication (Methyl Salicylate/ Menthol (Analgesic [place])) 1 king PRN QID PRN TP MUSCLE PAIN 05/31/20 14:30 UNV Olanzapine (ZyPREXA ZYDIS) 2.5 mg PRN Q2HR PRN PO PSYCHOSIS 05/31/20 14:30 06/06/20 18:00 Quetiapine Fumarate (SEROquel) 100 mg QHS PO 05/31/20 21:00 06/11/20 19:35 Trazodone HCl (Desyrel) 100 mg PRN QHS PRN PO INSOMNIA 05/31/20 14:45 06/10/20 19:48 Quetiapine Fumarate (SEROquel) 25 mg TID PO 05/31/20 21:00 05/31/20 18:26 DC Quetiapine Fumarate (SEROquel) 25 mg 0900,1300,1700 PO 06/01/20 09:00 06/11/20 17:08 Mirtazapine (Remeron) 7.5 mg QHS PO 06/01/20 21:00 06/05/20 16:31 DC 06/04/20 19:42 Sertraline HCl (Zoloft) 25 mg DAILY PO 06/03/20 09:00 06/05/20 16:31 DC 06/05/20 09:40 Mirtazapine (Remeron) 15 mg QHS PO 06/05/20 21:00 2/19/21 19:36 Sertraline HCl (Zoloft) 50 mg DAILY PO 06/06/20 09:00 06/09/20 11:00 DC 06/09/20 09:57 Sertraline HCl (Zoloft) 75 mg DAILY PO 06/10/20 09:00 06/11/20 08:08 Magnesium Citrate (Citroma) 296 ml 1X ONCE PO 06/11/20 19:30 06/11/20 19:51 DC 06/11/20 19:53 Current Medications Medications (Trade) Dose Ordered Sig/Rik Route PRN Reason Start Time Stop Time Status Last Admin Dose Admin Magnesium Citrate (Citroma) 296 ml 1X ONCE PO 06/11/20 19:30 06/11/20 19:51 DC 06/11/20 19:53 I have reviewed the current psychotropics carefully including drug interactions. Risk benefit ratio favors no change other than as noted in my dictated progress note. Diagnosis: Problems: (1) Impulse control disorder, unspecified (2) Anxiety disorder, unspecified (3) Major neurocognitive disorder due to Parkinson's disease with behavioral disturbance (4) Dementia in Alzheimer's disease with depression (5) Dementia in Alzheimer's disease with delusions (6) Parkinson's disease HAYLEY GUZMAN MD Jun 11, 2020 20:54
--- NOTE | 2020-06-11 21:06 | NUR ---
Nursing Note Pt drank mag citrate, now awaiting results. Compliant and cooperative with meds and assessments. Confused, but answers questions.
[2020-06-12 06:15] VITALS: BP 120/78
[2020-06-12] MEDS: MIDODRINE 5 MG TABLET PO SCH ×3 (07:00→17:28)
--- NOTE | 2020-06-12 07:42 | PDOC ---
Exam Note: Jason Note: This note is a late entry for 06/11/2020 covers elements not covered in my initial note. Subjective: The patient was seen face to face in the evening of 06/11/2020 with Germania BLANC, discussed and reviewed the chart. He slept 5 hours previous night. The patient has been confused. He did have a KUB per Dr. Rome, found to have impacted stool. He was having some loose diarrhea. Stool for C. difficile is negative. He was agitated during the KUB but better otherwise, withdrawn. Review of Systems: Ambulation impaired. No CV, , pulmonary, eye, ENT system symptoms on review. Reliability poor. Mental Status Exam: The patient is oriented to himself. Insight and judgment, recent and remote memory, attention and concentration, fund of knowledge is poor consistent with his diagnosis. Laboratory Data: Reviewed. 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 Anxiety disorder unspecified. Impulse control disorder unspecified. Parkinsons disease. Plan: No change from initial note. Assessment: Vital Signs/I&O: Vital Signs Date Time Temp Pulse Resp B/P (MAP) Pulse Ox O2 Delivery O2 Flow Rate FiO2 06/12/20 06:15 98.0 75 16 120/78 (92) 98 06/07/20 06:26 Room Air I & O 06/11/20 06/11/20 06/12/20 14:59 22:59 06:59 Intake Total 200 ml 480 ml Balance 200 ml 480 ml Labs: Laboratory Tests Test 06/11/20 13:58 White Blood Count 11.9 x10^3/uL (4.0-11.0) H Red Blood Count 4.88 x10^6/uL (4.30-5.70) Hemoglobin 14.5 g/dL (13.0-17.5) Hematocrit 43.2 % (39.0-53.0) Mean Corpuscular Volume 89 fL (79-100) Mean Corpuscular Hemoglobin 30 pg (25-35) Mean Corpuscular Hemoglobin Concent 34 g/dL (31-37) Red Cell Distribution Width 13.7 % (11.5-14.5) Platelet Count 316 x10^3/uL (140-400) Neutrophils (%) (Auto) 83 % (31-73) H Lymphocytes (%) (Auto) 10 % (24-48) L Monocytes (%) (Auto) 7 % (0-9) Eosinophils (%) (Auto) 1 % (0-3) Basophils (%) (Auto) 0 % (0-3) Neutrophils # (Auto) 9.9 x10^3uL (1.8-7.7) H Lymphocytes # (Auto) 1.1 x10^3/uL (1.0-4.8) Monocytes # (Auto) 0.8 x10^3/uL (0.0-1.1) Eosinophils # (Auto) 0.1 x10^3/uL (0.0-0.7) Basophils # (Auto) 0.0 x10^3/uL (0.0-0.2) Sodium Level 139 mmol/L (136-145) Potassium Level 3.6 mmol/L (3.5-5.1) Chloride Level 103 mmol/L (98-107) Carbon Dioxide Level 29 mmol/L (21-32) Anion Gap 7 (6-14) Blood Urea Nitrogen 22 mg/dL (8-26) Creatinine 1.0 mg/dL (0.7-1.3) Estimated GFR (Cockcroft-Gault) 75.0 Glucose Level 134 mg/dL (70-99) H Calcium Level 9.3 mg/dL (8.5-10.1) Current Medications: Meds: Laboratory Tests Test 06/11/20 13:58 White Blood Count 11.9 x10^3/uL Red Blood Count 4.88 x10^6/uL Hemoglobin 14.5 g/dL Hematocrit 43.2 % Mean Corpuscular Volume 89 fL Mean Corpuscular Hemoglobin 30 pg Mean Corpuscular Hemoglobin Concent 34 g/dL Red Cell Distribution Width 13.7 % Platelet Count 316 x10^3/uL Neutrophils (%) (Auto) 83 % Lymphocytes (%) (Auto) 10 % Monocytes (%) (Auto) 7 % Eosinophils (%) (Auto) 1 % Basophils (%) (Auto) 0 % Neutrophils # (Auto) 9.9 x10^3uL Lymphocytes # (Auto) 1.1 x10^3/uL Monocytes # (Auto) 0.8 x10^3/uL Eosinophils # (Auto) 0.1 x10^3/uL Basophils # (Auto) 0.0 x10^3/uL Sodium Level 139 mmol/L Potassium Level 3.6 mmol/L Chloride Level 103 mmol/L Carbon Dioxide Level 29 mmol/L Anion Gap 7 Blood Urea Nitrogen 22 mg/dL Creatinine 1.0 mg/dL Estimated GFR (Cockcroft-Gault) 75.0 Glucose Level 134 mg/dL Calcium Level 9.3 mg/dL Current Medications Medications (Trade) Dose Ordered Sig/Rik Route PRN Reason Start Time Stop Time Status Last Admin Dose Admin Acetaminophen (Tylenol) 650 mg PRN Q6HRS PRN PO MILD PAIN / TEMP > 100.3'F 05/31/20 13:45 06/11/20 14:41 Multi-Ingredient Ointment (Analgesic [place]) 1 king PRN QID PRN TP MUSCLE PAIN 05/31/20 13:45 06/09/20 20:10 Al Hydroxide/Mg Hydroxide (Mylanta Plus Xs) 15 ml PRN AFTMEALHC PRN PO DYSPEPSIA 05/31/20 13:45 06/01/20 15:35 Magnesium Hydroxide (Milk Of Magnesia) 2,400 mg PRN QHS PRN PO CONSTIPATION 05/31/20 13:45 06/11/20 16:49 Acetaminophen (Tylenol) 650 mg PRN Q6HRS PRN PO MILD PAIN / TEMP > 100.3'F 05/31/20 14:30 UNV Carbidopa/Levodopa (Sinemet 25/100) 2 tab TID PO 05/31/20 21:00 06/11/20 19:35 Vitamin D (Vitamin D3) 50,000 unit WEEKLY PO 06/03/20 09:00 06/10/20 10:51 Docusate Sodium (Colace) 100 mg BID PO 05/31/20 21:00 06/11/20 19:36 Levetiracetam (Keppra) 500 mg BID PO 05/31/20 21:00 06/11/20 19:35 Al Hydroxide/Mg Hydroxide (Mylanta Plus Xs) 15 ml PRN AFTMEALHC PRN PO DYSPEPSIA 05/31/20 14:30 UNV Magnesium Hydroxide (Milk Of Magnesia) 2,400 mg PRN QHS PRN PO CONSTIPATION 05/31/20 14:30 UNV Midodrine (Proamatine) 5 mg [id number] PO 05/31/20 18:00 06/11/20 17:09 Pramipexole Dihydrochloride (miraPEX) 0.25 mg BID PO 05/31/20 21:00 06/11/20 19:35 Non-Formulary Medication (Methyl Salicylate/ Menthol (Analgesic [place])) 1 king PRN QID PRN TP MUSCLE PAIN 05/31/20 14:30 UNV Olanzapine (ZyPREXA ZYDIS) 2.5 mg PRN Q2HR PRN PO PSYCHOSIS 05/31/20 14:30 06/06/20 18:00 Quetiapine Fumarate (SEROquel) 100 mg QHS PO 05/31/20 21:00 06/11/20 19:35 Trazodone HCl (Desyrel) 100 mg PRN QHS PRN PO INSOMNIA 05/31/20 14:45 06/10/20 19:48 Quetiapine Fumarate (SEROquel) 25 mg TID PO 05/31/20 21:00 05/31/20 18:26 DC Quetiapine Fumarate (SEROquel) 25 mg 0900,1300,1700 PO 06/01/20 09:00 06/11/20 17:08 Mirtazapine (Remeron) 7.5 mg QHS PO 06/01/20 21:00 06/05/20 16:31 DC 06/04/20 19:42 Sertraline HCl (Zoloft) 25 mg DAILY PO 06/03/20 09:00 06/05/20 16:31 DC 06/05/20 09:40 Mirtazapine (Remeron) 15 mg QHS PO 06/05/20 21:00 06/11/20 19:36 Sertraline HCl (Zoloft) 50 mg DAILY PO 06/06/20 09:00 06/09/20 11:00 DC 06/09/20 09:57 Sertraline HCl (Zoloft) 75 mg DAILY PO 06/10/20 09:00 06/11/20 08:08 Magnesium Citrate (Citroma) 296 ml 1X ONCE PO 06/11/20 19:30 06/11/20 19:51 DC 06/11/20 19:53 Current Medications Medications (Trade) Dose Ordered Sig/Rik Route PRN Reason Start Time Stop Time Status Last Admin Dose Admin Magnesium Citrate (Citroma) 296 ml 1X ONCE PO 06/11/20 19:30 06/11/20 19:51 DC 06/11/20 19:53 I have reviewed the current psychotropics carefully including drug interactions. Risk benefit ratio favors no change other than as noted in my dictated progress note. Diagnosis: Problems: (1) Impulse control disorder, unspecified (2) Anxiety disorder, unspecified (3) Major neurocognitive disorder due to Parkinson's disease with behavioral disturbance (4) Dementia in Alzheimer's disease with depression (5) Dementia in Alzheimer's disease with delusions (6) Major neurocognitive disorder HAYLEY GUZMAN MD Jun 12, 2020 07:42
[2020-06-12] MEDS: DOCUSATE SODIUM 100 MG CAPSULE PO SCH ×2 (08:29→19:43)
[2020-06-12] MEDS: QUEtiapine 25 MG TABLET. PO SCH ×3 (08:34→17:27)
[2020-06-12] MEDS: CARBIDOPA/LEVODOPA 25/100MG TABLET PO SCH ×3 (08:34→19:44)
[2020-06-12] MEDS: SERTRALINE 25 MG TABLET. PO SCH (08:34)
[2020-06-12] MEDS: levETIRAcetam 500 MG TABLET PO SCH ×2 (08:34→19:44)
[2020-06-12] MEDS: PRAMIPEXOLE 0.25 MG TABLET. PO SCH ×2 (08:34→19:44)
[2020-06-12] MEDS: MAGNESIUM HYDROXIDE 2,400 MG/30 ML ORAL.SUSP. PO PRN (08:35)
--- NOTE | 2020-06-12 09:21 | NUR ---
Pt is calm, cooperative, and compliant. No agitation, no aggression, no hallucinations, no delusions. He is compliant with his medication and assessment.
[2020-06-12 12:38] VITALS: BP 119/81
[2020-06-12 15:42] VITALS: BP 103/72
[2020-06-12] MEDS ORDERED: BISACODYL 10 MG SUPP.RECT PR PRN (19:15)
[2020-06-12] MEDS: MIRTAZAPINE 15 MG TABLET PO SCH (19:44)
[2020-06-12] MEDS: QUEtiapine 100 MG TABLET. PO SCH (19:44)
--- NOTE | 2020-06-12 20:57 | PDOC ---
Exam Note: Jason Note: Please also refer to the separate dictated note~for this date of service dictated separately.~Patient seen individually. Discussed the patient with Nursing staff reviewed the chart.~Reviewed interim history and current functioning. Reviewed vital signs,~Labs/ Radiology~and current medications noted below. Continue current treatment with the changes noted in the dictated addendum note Assessment: Vital Signs/I&O: Vital Signs Date Time Temp Pulse Resp B/P (MAP) Pulse Ox O2 Delivery O2 Flow Rate FiO2 06/12/20 17:28 93 103/72 06/12/20 15:42 98.0 18 96 Room Air I & O 06/11/20 06/11/20 06/12/20 15:00 23:00 07:00 Intake Total 200 ml 480 ml Balance 200 ml 480 ml Current Medications: Meds: Current Medications Medications (Trade) Dose Ordered Sig/Rik Route PRN Reason Start Time Stop Time Status Last Admin Dose Admin Acetaminophen (Tylenol) 650 mg PRN Q6HRS PRN PO MILD PAIN / TEMP > 100.3'F 05/31/20 13:45 06/11/20 14:41 Multi-Ingredient Ointment (Analgesic [place]) 1 king PRN QID PRN TP MUSCLE PAIN 05/31/20 13:45 06/09/20 20:10 Al Hydroxide/Mg Hydroxide (Mylanta Plus Xs) 15 ml PRN AFTMEALHC PRN PO DYSPEPSIA 05/31/20 13:45 06/01/20 15:35 Magnesium Hydroxide (Milk Of Magnesia) 2,400 mg PRN QHS PRN PO CONSTIPATION 05/31/20 13:45 06/12/20 08:35 Acetaminophen (Tylenol) 650 mg PRN Q6HRS PRN PO MILD PAIN / TEMP > 100.3'F 05/31/20 14:30 UNV Carbidopa/Levodopa (Sinemet 25/100) 2 tab TID PO 05/31/20 21:00 06/12/20 19:44 Vitamin D (Vitamin D3) 50,000 unit WEEKLY PO 06/03/20 09:00 06/10/20 10:51 Docusate Sodium (Colace) 100 mg BID PO 05/31/20 21:00 06/12/20 19:43 Levetiracetam (Keppra) 500 mg BID PO 05/31/20 21:00 06/12/20 19:44 Al Hydroxide/Mg Hydroxide (Mylanta Plus Xs) 15 ml PRN AFTMEALHC PRN PO DYSPEPSIA 05/31/20 14:30 UNV Magnesium Hydroxide (Milk Of Magnesia) 2,400 mg PRN QHS PRN PO CONSTIPATION 05/31/20 14:30 UNV Midodrine (Proamatine) 5 mg [id number] PO 05/31/20 18:00 06/12/20 17:28 Pramipexole Dihydrochloride (miraPEX) 0.25 mg BID PO 05/31/20 21:00 06/12/20 19:44 Non-Formulary Medication (Methyl Salicylate/ Menthol (Analgesic [place])) 1 king PRN QID PRN TP MUSCLE PAIN 05/31/20 14:30 UNV Olanzapine (ZyPREXA ZYDIS) 2.5 mg PRN Q2HR PRN PO PSYCHOSIS 05/31/20 14:30 06/06/20 18:00 Quetiapine Fumarate (SEROquel) 100 mg QHS PO 05/31/20 21:00 06/12/20 19:44 Trazodone HCl (Desyrel) 100 mg PRN QHS PRN PO INSOMNIA 05/31/20 14:45 06/10/20 19:48 Quetiapine Fumarate (SEROquel) 25 mg TID PO 05/31/20 21:00 05/31/20 18:26 DC Quetiapine Fumarate (SEROquel) 25 mg 0900,1300,1700 PO 06/01/20 09:00 06/12/20 17:27 Mirtazapine (Remeron) 7.5 mg QHS PO 06/01/20 21:00 06/05/20 16:31 DC 06/04/20 19:42 Sertraline HCl (Zoloft) 25 mg DAILY PO 06/03/20 09:00 06/05/20 16:31 DC 06/05/20 09:40 Mirtazapine (Remeron) 15 mg QHS PO 06/05/20 21:00 06/12/20 19:44 Sertraline HCl (Zoloft) 50 mg DAILY PO 06/06/20 09:00 06/09/20 11:00 DC 06/09/20 09:57 Sertraline HCl (Zoloft) 75 mg DAILY PO 06/10/20 09:00 06/12/20 08:34 Magnesium Citrate (Citroma) 296 ml 1X ONCE PO 06/11/20 19:30 06/11/20 19:51 DC 06/11/20 19:53 Magnesium Citrate (Citroma) 296 ml 1X ONCE PO 06/12/20 21:00 06/12/20 21:01 06/12/20 19:45 Bisacodyl (Dulcolax Supp) 10 mg PRN DAILY PRN AR CONSTIPATION 06/12/20 19:15 Current Medications Medications (Trade) Dose Ordered Sig/Rik Route PRN Reason Start Time Stop Time Status Last Admin Dose Admin Magnesium Citrate (Citroma) 296 ml 1X ONCE PO 06/12/20 21:00 06/12/20 21:01 06/12/20 19:45 I have reviewed the current psychotropics carefully including drug interactions. Risk benefit ratio favors no change other than as noted in my dictated progress note. Diagnosis: Problems: (1) Major neurocognitive disorder (2) Dementia in Alzheimer's disease with depression (3) Dementia in Alzheimer's disease with delusions (4) Major neurocognitive disorder due to Parkinson's disease with behavioral disturbance (5) Anxiety disorder, unspecified (6) Impulse control disorder, unspecified HAYLEY GUZMAN MD Jun 12, 2020 20:57
[2020-06-12] MEDS ORDERED: MAGNESIUM CITRATE 296 ML SOLUTION. PO ONE (21:00)
--- NOTE | 2020-06-12 22:24 | NUR ---
Pt restless and disorganized this evening. Pt found sitting on top of male peer in that peer's bed. Pt irritable with staff attempting to remove pt from peer's bed. Pt disrobing in his bed. Pt compliant with crushed medications and shower this evening.
[2020-06-13 05:35] VITALS: BP 101/66
[2020-06-13] MEDS: MIDODRINE 5 MG TABLET PO SCH ×3 (06:14→18:00)
[2020-06-13] MEDS: DOCUSATE SODIUM 100 MG CAPSULE PO SCH ×2 (08:26→20:21)
[2020-06-13] MEDS: SERTRALINE 25 MG TABLET. PO SCH (08:27)
[2020-06-13] MEDS: PRAMIPEXOLE 0.25 MG TABLET. PO SCH ×2 (08:27→20:21)
[2020-06-13] MEDS: QUEtiapine 25 MG TABLET. PO SCH ×3 (08:27→17:00)
[2020-06-13] MEDS: levETIRAcetam 500 MG TABLET PO SCH ×2 (08:27→20:21)
[2020-06-13] MEDS: CARBIDOPA/LEVODOPA 25/100MG TABLET PO SCH ×3 (08:27→20:22)
--- NOTE | 2020-06-13 10:08 | NUR ---
No agitation, no aggression, no hallucinations, no delusions. He is compliant with his medication and assessment. Pt is calm, cooperative, and compliant. Pt states he stomach hurts at times.
[2020-06-13 11:52] VITALS: BP 119/75
--- NOTE | 2020-06-13 12:15 | NUR ---
Attempted to digitally remove stool from patients rectum. Attempt unsuccessful. Pt has small amounts of liquid stool in brief thought the day. Pt given suppository and assisted to lunch
[2020-06-13 16:12] VITALS: BP 110/69
--- NOTE | 2020-06-13 18:06 | NUR ---
Dr. Rome informed pt has not had a bowel movement today. New order to give pt mag citirate.
[2020-06-13] MEDS ORDERED: MAGNESIUM CITRATE 296 ML SOLUTION. PO ONE (18:45)
[2020-06-13] MEDS: MIRTAZAPINE 15 MG TABLET PO SCH (20:21)
[2020-06-13] MEDS: traZODone 100 MG TABLET. PO PRN (20:21)
[2020-06-13] MEDS: QUEtiapine 100 MG TABLET. PO SCH (20:21)
--- NOTE | 2020-06-13 21:28 | PDOC ---
Exam Note: Jason Note: Please also refer to the separate dictated note~for this date of service dictated separately.~Patient seen individually. Discussed the patient with Nursing staff reviewed the chart.~Reviewed interim history and current functioning. Reviewed vital signs,~Labs/ Radiology~and current medications noted below. Continue current treatment with the changes noted in the dictated addendum note Assessment: Vital Signs/I&O: Vital Signs Date Time Temp Pulse Resp B/P (MAP) Pulse Ox O2 Delivery O2 Flow Rate FiO2 06/13/20 16:12 97.0 102 16 110/69 (83) 95 Room Air I & O 06/12/20 06/12/20 06/13/20 14:59 22:59 06:59 Intake Total 360 ml 600 ml Balance 360 ml 600 ml Current Medications: I have reviewed the current psychotropics carefully including drug interactions. Risk benefit ratio favors no change other than as noted in my dictated progress note. Diagnosis: Problems: (1) Impulse control disorder, unspecified (2) Anxiety disorder, unspecified (3) Major neurocognitive disorder due to Parkinson's disease with behavioral disturbance (4) Psychotic disorder (5) Dementia in Alzheimer's disease with depression (6) Dementia in Alzheimer's disease with delusions (7) Lewy body dementia with behavioral disturbance (8) Major neurocognitive disorder (9) Parkinson's disease HAYLEY GUZMAN MD Jun 13, 2020 21:28
--- NOTE | 2020-06-13 22:18 | NUR ---
Pt has been sleeping soundly since shift change. HS medications held at this time.
--- NOTE | 2020-06-13 23:00 | NUR ---
Pt awake. HS medications given at this time.
--- NOTE | 2020-06-14 | PN ---
DATE: 06/13/2020 PSYCHIATRIC PROGRESS NOTE This note covers elements not covered in my initial note on 06/13/2020. SUBJECTIVE: I met with the patient evening of 06/13/2020. Discussed with JAYASHREE Kim. The patient slept 4 hours previous night. He remains confused, wanders around the unit, does redirect. No CV, , pulmonary, eye, ENT system symptoms on review. He has been grabbing at things around him and nothing was around him. MENTAL STATUS EXAM: Oriented to himself. Insight, judgment, recent and remote memory, attention, concentration, fund of knowledge poor, consistent with his diagnosis mentioned in my initial note. IMPRESSION: Major neurocognitive disorder, Lewy body with delusion, depression, behavioral disturbance; anxiety disorder, unspecified; impulse control disorder, unspecified; seizure disorder. Rest unchanged for now. PLAN: Continue psychotropics from initial note including Seroquel, Remeron, trazodone, Zoloft. Adjust further as clinically indicated. MAN Drake GUZMAN MD DR: SYL/stevo JOB#: [id number] / [id number]
[2020-06-14] MEDS: MIDODRINE 5 MG TABLET PO SCH ×3 (05:57→18:00)
[2020-06-14 06:01] VITALS: BP 129/67
[2020-06-14] MEDS: PRAMIPEXOLE 0.25 MG TABLET. PO SCH ×2 (08:57→21:06)
[2020-06-14] MEDS: SERTRALINE 25 MG TABLET. PO SCH (08:57)
[2020-06-14] MEDS: QUEtiapine 25 MG TABLET. PO SCH ×3 (08:57→17:46)
[2020-06-14] MEDS: levETIRAcetam 500 MG TABLET PO SCH ×2 (08:57→21:06)
[2020-06-14] MEDS: CARBIDOPA/LEVODOPA 25/100MG TABLET PO SCH ×3 (08:57→21:06)
[2020-06-14] MEDS: DOCUSATE SODIUM 100 MG CAPSULE PO SCH ×2 (08:57→21:06)
--- NOTE | 2020-06-14 14:23 | NUR ---
SHAKIRA spoke with /DPOA, Ema, to provide update. Ema appreciative of call. Ema plans to call pt later today.
[2020-06-14 15:27] VITALS: BP 105/74
--- NOTE | 2020-06-14 18:30 | NUR ---
Patient has been calm, compliant, and pleasantly confused throughout this shift. He spent most of his time wandering in the hallway and sitting in the day room. Will continue to monitor and report to oncoming shift.
[2020-06-14] MEDS: QUEtiapine 100 MG TABLET. PO SCH (21:06)
[2020-06-14] MEDS: MIRTAZAPINE 15 MG TABLET PO SCH (21:06)
--- NOTE | 2020-06-14 21:55 | PDOC ---
Exam Note: Jason Note: Please also refer to the separate dictated note~for this date of service dictated separately.~Patient seen individually. Discussed the patient with Nursing staff reviewed the chart.~Reviewed interim history and current functioning. Reviewed vital signs,~Labs/ Radiology~and current medications noted below. Continue current treatment with the changes noted in the dictated addendum note Assessment: Vital Signs/I&O: Vital Signs Date Time Temp Pulse Resp B/P (MAP) Pulse Ox O2 Delivery O2 Flow Rate FiO2 06/14/20 18:00 83 105/74 06/14/20 15:27 97.3 16 96 Room Air I & O 06/13/20 06/13/20 06/14/20 15:00 23:00 07:00 Intake Total 240 ml 0 ml Balance 240 ml 0 ml Current Medications: I have reviewed the current psychotropics carefully including drug interactions. Risk benefit ratio favors no change other than as noted in my dictated progress note. Diagnosis: Problems: (1) Impulse control disorder, unspecified (2) Anxiety disorder, unspecified (3) Major neurocognitive disorder due to Parkinson's disease with behavioral disturbance (4) Psychotic disorder (5) Dementia in Alzheimer's disease with depression (6) Dementia in Alzheimer's disease with delusions (7) Lewy body dementia with behavioral disturbance (8) Major neurocognitive disorder (9) Parkinson's disease HAYLEY GUZMAN MD Jun 14, 2020 21:55
[2020-06-15 05:21] VITALS: BP 119/75
[2020-06-15] MEDS: MIDODRINE 5 MG TABLET PO SCH ×3 (05:27→17:40)
--- NOTE | 2020-06-15 08:12 | PDOC ---
Exam Note: Jason Note: This note is a late entry for 06/12/2020 covers elements not covered in my initial note. Subjective: The patient was seen face to face in the evening of 06/12/2020 with Citlalli BLANC, discussed and reviewed the chart. He slept 8 hours previous night. He wanders. He has had no bowel movement despite [place] and we will use mag citrate to help with this. As I met with him he was lying on top of another male patient, oblivious of where he was and he was on the patients bed. Nursing staff did intervene and them. Review of Systems: Ambulation impaired. No CV, , pulmonary, eye, ENT system symptoms on review. Reliability poor. Mental Status Exam: The patient is oriented to himself. Insight and judgment, recent and remote memory, attention and concentration, fund of knowledge is poor consistent with his diagnosis. Laboratory Data: Reviewed. 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 Anxiety disorder unspecified. Impulse control disorder unspecified. Parkinsons disease. Plan: No change from initial note. Continue psychotropics from initial note. Assessment: Vital Signs/I&O: Vital Signs Date Time Temp Pulse Resp B/P (MAP) Pulse Ox O2 Delivery O2 Flow Rate FiO2 06/15/20 05:27 66 119/75 06/15/20 05:21 97.7 18 98 06/14/20 15:27 Room Air I & O 06/14/20 06/14/20 06/15/20 14:59 22:59 06:59 Intake Total 200 ml 480 ml Balance 200 ml 480 ml Current Medications: Meds: Current Medications Medications (Trade) Dose Ordered Sig/Rik Route PRN Reason Start Time Stop Time Status Last Admin Dose Admin Acetaminophen (Tylenol) 650 mg PRN Q6HRS PRN PO MILD PAIN / TEMP > 100.3'F 05/31/20 13:45 06/11/20 14:41 Multi-Ingredient Ointment (Analgesic [place]) 1 king PRN QID PRN TP MUSCLE PAIN 05/31/20 13:45 06/09/20 20:10 Al Hydroxide/Mg Hydroxide (Mylanta Plus Xs) 15 ml PRN AFTMEALHC PRN PO DYSPEPSIA 05/31/20 13:45 06/01/20 15:35 Magnesium Hydroxide (Milk Of Magnesia) 2,400 mg PRN QHS PRN PO CONSTIPATION 05/31/20 13:45 06/12/20 08:35 Acetaminophen (Tylenol) 650 mg PRN Q6HRS PRN PO MILD PAIN / TEMP > 100.3'F 05/31/20 14:30 UNV Carbidopa/Levodopa (Sinemet 25/100) 2 tab TID PO 05/31/20 21:00 06/14/20 21:06 Vitamin D (Vitamin D3) 50,000 unit WEEKLY PO 06/03/20 09:00 06/10/20 10:51 Docusate Sodium (Colace) 100 mg BID PO 05/31/20 21:00 06/14/20 21:06 Levetiracetam (Keppra) 500 mg BID PO 05/31/20 21:00 06/14/20 21:06 Al Hydroxide/Mg Hydroxide (Mylanta Plus Xs) 15 ml PRN AFTMEALHC PRN PO DYSPEPSIA 05/31/20 14:30 UNV Magnesium Hydroxide (Milk Of Magnesia) 2,400 mg PRN QHS PRN PO CONSTIPATION 05/31/20 14:30 UNV Midodrine (Proamatine) 5 mg [id number] PO 05/31/20 18:00 06/13/20 06:14 Pramipexole Dihydrochloride (miraPEX) 0.25 mg BID PO 05/31/20 21:00 06/14/20 21:06 Non-Formulary Medication (Methyl Salicylate/ Menthol (Analgesic [place])) 1 king PRN QID PRN TP MUSCLE PAIN 05/31/20 14:30 UNV Olanzapine (ZyPREXA ZYDIS) 2.5 mg PRN Q2HR PRN PO PSYCHOSIS 05/31/20 14:30 06/06/20 18:00 Quetiapine Fumarate (SEROquel) 100 mg QHS PO 05/31/20 21:00 06/14/20 21:06 Trazodone HCl (Desyrel) 100 mg PRN QHS PRN PO INSOMNIA 05/31/20 14:45 06/10/20 19:48 Quetiapine Fumarate (SEROquel) 25 mg TID PO 05/31/20 21:00 05/31/20 18:26 DC Quetiapine Fumarate (SEROquel) 25 mg 0900,1300,1700 PO 06/01/20 09:00 06/14/20 17:46 Mirtazapine (Remeron) 7.5 mg QHS PO 06/01/20 21:00 06/05/20 16:31 DC 06/04/20 19:42 Sertraline HCl (Zoloft) 25 mg DAILY PO 06/03/20 09:00 06/05/20 16:31 DC 06/05/20 09:40 Mirtazapine (Remeron) 15 mg QHS PO 06/05/20 21:00 06/14/20 21:06 Sertraline HCl (Zoloft) 50 mg DAILY PO 06/06/20 09:00 06/09/20 11:00 DC 06/09/20 09:57 Sertraline HCl (Zoloft) 75 mg DAILY PO 06/10/20 09:00 06/14/20 08:57 Magnesium Citrate (Citroma) 296 ml 1X ONCE PO 06/11/20 19:30 06/11/20 19:51 DC 06/11/20 19:53 Magnesium Citrate (Citroma) 296 ml 1X ONCE PO 06/12/20 21:00 06/12/20 21:01 DC 06/12/20 19:45 Bisacodyl (Dulcolax Supp) 10 mg PRN DAILY PRN [place] CONSTIPATION 06/12/20 19:15 06/13/20 11:58 Magnesium Citrate (Citroma) 296 ml 1X ONCE PO 06/13/20 18:45 06/13/20 18:46 DC I have reviewed the current psychotropics carefully including drug interactions. Risk benefit ratio favors no change other than as noted in my dictated progress note. Diagnosis: Problems: (1) Parkinson's disease (2) Anxiety disorder, unspecified (3) Major neurocognitive disorder due to Parkinson's disease with behavioral disturbance (4) Impulse control disorder, unspecified (5) Dementia in Alzheimer's disease with delusions (6) Dementia in Alzheimer's disease with depression HAYLEY GUZMAN MD Jun 15, 2020 08:12
[2020-06-15] MEDS: SERTRALINE 25 MG TABLET. PO SCH (08:28)
[2020-06-15] MEDS: DOCUSATE SODIUM 100 MG CAPSULE PO SCH ×2 (08:28→20:10)
[2020-06-15] MEDS: CARBIDOPA/LEVODOPA 25/100MG TABLET PO SCH ×3 (08:28→20:10)
[2020-06-15] MEDS: levETIRAcetam 500 MG TABLET PO SCH ×2 (08:28→20:10)
[2020-06-15] MEDS: QUEtiapine 25 MG TABLET. PO SCH ×3 (08:28→18:07)
[2020-06-15] MEDS: PRAMIPEXOLE 0.25 MG TABLET. PO SCH ×2 (08:28→20:10)
--- NOTE | 2020-06-15 11:26 | NUR ---
Pt alert to self only, believes he is in [place], [place]. He is appropriate and med complaint so far this shift. No overt wandering behaviors noted this morning, he has spent most of the time sitting quietly in front of the nurse station. He denies SI/HI, absent of aggression. He denies pain or discomfort, no c/o of abd pain/constipation. Will pass to the next shift.
[2020-06-15 15:45] VITALS: BP 111/74
[2020-06-15] MEDS: traZODone 100 MG TABLET. PO PRN (20:09)
[2020-06-15] MEDS: MIRTAZAPINE 15 MG TABLET PO SCH (20:09)
[2020-06-15] MEDS: QUEtiapine 100 MG TABLET. PO SCH (20:10)
--- NOTE | 2020-06-15 21:09 | PDOC ---
Exam Note: Jason Note: Please also refer to the separate dictated note~for this date of service dictated separately.~Patient seen individually. Discussed the patient with Nursing staff reviewed the chart.~Reviewed interim history and current functioning. Reviewed vital signs,~Labs/ Radiology~and current medications noted below. Continue current treatment with the changes noted in the dictated addendum note Assessment: Vital Signs/I&O: Vital Signs Date Time Temp Pulse Resp B/P (MAP) Pulse Ox O2 Delivery O2 Flow Rate FiO2 06/15/20 17:40 81 111/74 06/15/20 15:45 98.9 20 96 06/14/20 15:27 Room Air I & O 06/14/20 06/14/20 06/15/20 15:00 23:00 07:00 Intake Total 200 ml 480 ml Balance 200 ml 480 ml Current Medications: Meds: Current Medications Medications (Trade) Dose Ordered Sig/Rik Route PRN Reason Start Time Stop Time Status Last Admin Dose Admin Acetaminophen (Tylenol) 650 mg PRN Q6HRS PRN PO MILD PAIN / TEMP > 100.3'F 05/31/20 13:45 06/11/20 14:41 Multi-Ingredient Ointment (Analgesic [place]) 1 king PRN QID PRN TP MUSCLE PAIN 05/31/20 13:45 06/09/20 20:10 Al Hydroxide/Mg Hydroxide (Mylanta Plus Xs) 15 ml PRN AFTMEALHC PRN PO DYSPEPSIA 05/31/20 13:45 06/01/20 15:35 Magnesium Hydroxide (Milk Of Magnesia) 2,400 mg PRN QHS PRN PO 1ST CHOICE CONSTIPATION 05/31/20 13:45 06/12/20 08:35 Acetaminophen (Tylenol) 650 mg PRN Q6HRS PRN PO MILD PAIN / TEMP > 100.3'F 05/31/20 14:30 UNV Carbidopa/Levodopa (Sinemet 25/100) 2 tab TID PO 05/31/20 21:00 06/15/20 20:10 Vitamin D (Vitamin D3) 50,000 unit WEEKLY PO 06/03/20 09:00 06/10/20 10:51 Docusate Sodium (Colace) 100 mg BID PO 05/31/20 21:00 06/15/20 20:10 Levetiracetam (Keppra) 500 mg BID PO 05/31/20 21:00 06/15/20 20:10 Al Hydroxide/Mg Hydroxide (Mylanta Plus Xs) 15 ml PRN AFTMEALHC PRN PO DYSPEPSIA 05/31/20 14:30 UNV Magnesium Hydroxide (Milk Of Magnesia) 2,400 mg PRN QHS PRN PO CONSTIPATION 05/31/20 14:30 UNV Midodrine (Proamatine) 5 mg [id number] PO 05/31/20 18:00 06/13/20 06:14 Pramipexole Dihydrochloride (miraPEX) 0.25 mg BID PO 05/31/20 21:00 06/15/20 20:10 Non-Formulary Medication (Methyl Salicylate/ Menthol (Analgesic [place])) 1 king PRN QID PRN TP MUSCLE PAIN 05/31/20 14:30 UNV Olanzapine (ZyPREXA ZYDIS) 2.5 mg PRN Q2HR PRN PO PSYCHOSIS 05/31/20 14:30 06/06/20 18:00 Quetiapine Fumarate (SEROquel) 100 mg QHS PO 05/31/20 21:00 06/15/20 20:10 Trazodone HCl (Desyrel) 100 mg PRN QHS PRN PO INSOMNIA 05/31/20 14:45 06/15/20 20:09 Quetiapine Fumarate (SEROquel) 25 mg TID PO 05/31/20 21:00 05/31/20 18:26 DC Quetiapine Fumarate (SEROquel) 25 mg 0900,1300,1700 PO 06/01/20 09:00 06/15/20 18:07 Mirtazapine (Remeron) 7.5 mg QHS PO 06/01/20 21:00 06/05/20 16:31 DC 06/04/20 19:42 Sertraline HCl (Zoloft) 25 mg DAILY PO 06/03/20 09:00 06/05/20 16:31 DC 06/05/20 09:40 Mirtazapine (Remeron) 15 mg QHS PO 06/05/20 21:00 06/15/20 20:09 Sertraline HCl (Zoloft) 50 mg DAILY PO 06/06/20 09:00 06/09/20 11:00 DC 06/09/20 09:57 Sertraline HCl (Zoloft) 75 mg DAILY PO 06/10/20 09:00 06/15/20 08:28 Magnesium Citrate (Citroma) 296 ml 1X ONCE PO 06/11/20 19:30 06/11/20 19:51 DC 06/11/20 19:53 Magnesium Citrate (Citroma) 296 ml 1X ONCE PO 06/12/20 21:00 06/12/20 21:01 DC 06/12/20 19:45 Bisacodyl (Dulcolax Supp) 10 mg PRN DAILY PRN [place] 2ND CHOICE CONSTIPATION 06/12/20 19:15 06/13/20 11:58 Magnesium Citrate (Citroma) 296 ml 1X ONCE PO 06/13/20 18:45 06/13/20 18:46 DC I have reviewed the current psychotropics carefully including drug interactions. Risk benefit ratio favors no change other than as noted in my dictated progress note. Diagnosis: Problems: (1) Impulse control disorder, unspecified (2) Anxiety disorder, unspecified (3) Major neurocognitive disorder due to Parkinson's disease with behavioral disturbance (4) Dementia in Alzheimer's disease with depression (5) Dementia in Alzheimer's disease with delusions (6) Lewy body dementia with behavioral disturbance (7) Parkinson's disease HAYLEY GUZMAN MD Jun 15, 2020 21:09
--- NOTE | 2020-06-15 23:22 | NUR ---
Nursing Note Pt withdrawn and quiet but takes meds, cooperative with assessment, no behaviors.
[2020-06-16 06:06] VITALS: BP 150/89
[2020-06-16] MEDS: MIDODRINE 5 MG TABLET PO SCH ×3 (07:00→17:38)
--- NOTE | 2020-06-16 08:11 | PDOC ---
Exam Note: Jason Note: This note is a late entry for 06/14/2020 covers elements not covered in my initial note. Subjective: The patient was seen face to face in the evening of 06/14/2020 with Kristian BLANC, discussed and reviewed the chart. He slept 9-1/4 hours previous night. He is wandering, compliant with medications. He walks with his head bent forward and is more oriented than he seems on the surface. Review of Systems: No CV, , pulmonary, eye, ENT system symptoms on review. Reliability poor. Mental Status Exam: The patient is oriented to himself. Insight and judgment, recent and remote memory, attention and concentration, fund of knowledge is poor consistent with his diagnosis. He had poor eye contact during the individual visit. Denied active hallucinations. No suicidal or homicidal ideation. Laboratory Data: Reviewed. 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 Anxiety disorder unspecified. Impulse control disorder unspecified. Parkinsons disease. Plan: No change from initial note. Assessment: Vital Signs/I&O: Vital Signs Date Time Temp Pulse Resp B/P (MAP) Pulse Ox O2 Delivery O2 Flow Rate FiO2 06/16/20 06:06 98.4 62 18 150/89 (109) 99 06/14/20 15:27 Room Air I & O 06/15/20 06/15/20 06/16/20 15:00 23:00 07:00 Intake Total 840 ml 360 ml Balance 840 ml 360 ml Current Medications: Meds: Current Medications Medications (Trade) Dose Ordered Sig/Rik Route PRN Reason Start Time Stop Time Status Last Admin Dose Admin Acetaminophen (Tylenol) 650 mg PRN Q6HRS PRN PO MILD PAIN / TEMP > 100.3'F 05/31/20 13:45 06/11/20 14:41 Multi-Ingredient Ointment (Analgesic [place]) 1 king PRN QID PRN TP MUSCLE PAIN 05/31/20 13:45 06/09/20 20:10 Al Hydroxide/Mg Hydroxide (Mylanta Plus Xs) 15 ml PRN AFTMEALHC PRN PO DYSPEPSIA 05/31/20 13:45 06/01/20 15:35 Magnesium Hydroxide (Milk Of Magnesia) 2,400 mg PRN QHS PRN PO 1ST CHOICE CONSTIPATION 05/31/20 13:45 06/12/20 08:35 Acetaminophen (Tylenol) 650 mg PRN Q6HRS PRN PO MILD PAIN / TEMP > 100.3'F 05/31/20 14:30 UNV Carbidopa/Levodopa (Sinemet 25/100) 2 tab TID PO 05/31/20 21:00 06/15/20 20:10 Vitamin D (Vitamin D3) 50,000 unit WEEKLY PO 06/03/20 09:00 06/10/20 10:51 Docusate Sodium (Colace) 100 mg BID PO 05/31/20 21:00 06/15/20 20:10 Levetiracetam (Keppra) 500 mg BID PO 05/31/20 21:00 06/15/20 20:10 Al Hydroxide/Mg Hydroxide (Mylanta Plus Xs) 15 ml PRN AFTMEALHC PRN PO DYSPEPSIA 05/31/20 14:30 UNV Magnesium Hydroxide (Milk Of Magnesia) 2,400 mg PRN QHS PRN PO CONSTIPATION 05/31/20 14:30 UNV Midodrine (Proamatine) 5 mg [id number] PO 05/31/20 18:00 06/13/20 06:14 Pramipexole Dihydrochloride (miraPEX) 0.25 mg BID PO 05/31/20 21:00 06/15/20 20:10 Non-Formulary Medication (Methyl Salicylate/ Menthol (Analgesic [place])) 1 king PRN QID PRN TP MUSCLE PAIN 05/31/20 14:30 UNV Olanzapine (ZyPREXA ZYDIS) 2.5 mg PRN Q2HR PRN PO PSYCHOSIS 05/31/20 14:30 06/06/20 18:00 Quetiapine Fumarate (SEROquel) 100 mg QHS PO 05/31/20 21:00 06/15/20 20:10 Trazodone HCl (Desyrel) 100 mg PRN QHS PRN PO INSOMNIA 05/31/20 14:45 06/15/20 20:09 Quetiapine Fumarate (SEROquel) 25 mg TID PO 05/31/20 21:00 05/31/20 18:26 DC Quetiapine Fumarate (SEROquel) 25 mg 0900,1300,1700 PO 06/01/20 09:00 06/15/20 18:07 Mirtazapine (Remeron) 7.5 mg QHS PO 06/01/20 21:00 06/05/20 16:31 DC 06/04/20 19:42 Sertraline HCl (Zoloft) 25 mg DAILY PO 06/03/20 09:00 06/05/20 16:31 DC 06/05/20 09:40 Mirtazapine (Remeron) 15 mg QHS PO 06/05/20 21:00 06/15/20 20:09 Sertraline HCl (Zoloft) 50 mg DAILY PO 06/06/20 09:00 06/09/20 11:00 DC 06/09/20 09:57 Sertraline HCl (Zoloft) 75 mg DAILY PO 06/10/20 09:00 06/15/20 08:28 Magnesium Citrate (Citroma) 296 ml 1X ONCE PO 06/11/20 19:30 06/11/20 19:51 DC 06/11/20 19:53 Magnesium Citrate (Citroma) 296 ml 1X ONCE PO 06/12/20 21:00 06/12/20 21:01 DC 06/12/20 19:45 Bisacodyl (Dulcolax Supp) 10 mg PRN DAILY PRN [place] 2ND CHOICE CONSTIPATION 06/12/20 19:15 06/13/20 11:58 Magnesium Citrate (Citroma) 296 ml 1X ONCE PO 06/13/20 18:45 06/13/20 18:46 DC I have reviewed the current psychotropics carefully including drug interactions. Risk benefit ratio favors no change other than as noted in my dictated progress note. Diagnosis: Problems: (1) Dementia in Alzheimer's disease with depression (2) Major neurocognitive disorder due to Parkinson's disease with behavioral disturbance (3) Anxiety disorder, unspecified (4) Impulse control disorder, unspecified (5) Major neurocognitive disorder (6) Parkinson's disease HAYLEY GUZMAN MD Jun 16, 2020 08:11
--- NOTE | 2020-06-16 08:48 | PDOC ---
Exam Note: Jason Note: This note is a late entry for 06/15/2020 covers elements not covered in my initial note. Subjective: The patient was seen face to face in the evening of 06/15/2020 with Germania BLANC, discussed and reviewed the chart. He slept 7-1/2 hours previous night. He takes medications. Remains confused in nights and days. He is having bowel movements today, which is an improvement but he is wandering and confused. Review of Systems: Ambulation impaired. No CV, , pulmonary, eye, ENT system symptoms on review. Eye contact is poor. Mental Status Exam: The patient is oriented to himself and situation. At times speech is moderate to marked latency. Often response is monosyllabic. Abstraction is fair. Computation is impaired. Language function is intact. Mood and affect withdrawn. Laboratory Data: Reviewed. 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 Anxiety disorder unspecified. Impulse control disorder unspecified. Parkinsons disease. Plan: No change from initial note. Assessment: Vital Signs/I&O: Vital Signs Date Time Temp Pulse Resp B/P (MAP) Pulse Ox O2 Delivery O2 Flow Rate FiO2 06/16/20 06:06 98.4 62 18 150/89 (109) 99 06/14/20 15:27 Room Air I & O 06/15/20 06/15/20 06/16/20 15:00 23:00 07:00 Intake Total 840 ml 360 ml Balance 840 ml 360 ml Current Medications: Meds: Current Medications Medications (Trade) Dose Ordered Sig/Rik Route PRN Reason Start Time Stop Time Status Last Admin Dose Admin Acetaminophen (Tylenol) 650 mg PRN Q6HRS PRN PO MILD PAIN / TEMP > 100.3'F 05/31/20 13:45 06/11/20 14:41 Multi-Ingredient Ointment (Analgesic [place]) 1 king PRN QID PRN TP MUSCLE PAIN 05/31/20 13:45 06/09/20 20:10 Al Hydroxide/Mg Hydroxide (Mylanta Plus Xs) 15 ml PRN AFTMEALHC PRN PO DYSPEPSIA 05/31/20 13:45 06/01/20 15:35 Magnesium Hydroxide (Milk Of Magnesia) 2,400 mg PRN QHS PRN PO 1ST CHOICE CONSTIPATION 05/31/20 13:45 06/12/20 08:35 Acetaminophen (Tylenol) 650 mg PRN Q6HRS PRN PO MILD PAIN / TEMP > 100.3'F 05/31/20 14:30 UNV Carbidopa/Levodopa (Sinemet 25/100) 2 tab TID PO 05/31/20 21:00 06/15/20 20:10 Vitamin D (Vitamin D3) 50,000 unit WEEKLY PO 06/03/20 09:00 06/10/20 10:51 Docusate Sodium (Colace) 100 mg BID PO 05/31/20 21:00 06/15/20 20:10 Levetiracetam (Keppra) 500 mg BID PO 05/31/20 21:00 06/15/20 20:10 Al Hydroxide/Mg Hydroxide (Mylanta Plus Xs) 15 ml PRN AFTMEALHC PRN PO DYSPEPSIA 05/31/20 14:30 UNV Magnesium Hydroxide (Milk Of Magnesia) 2,400 mg PRN QHS PRN PO CONSTIPATION 05/31/20 14:30 UNV Midodrine (Proamatine) 5 mg [id number] PO 05/31/20 18:00 06/13/20 06:14 Pramipexole Dihydrochloride (miraPEX) 0.25 mg BID PO 05/31/20 21:00 06/15/20 20:10 Non-Formulary Medication (Methyl Salicylate/ Menthol (Analgesic [place])) 1 king PRN QID PRN TP MUSCLE PAIN 05/31/20 14:30 UNV Olanzapine (ZyPREXA ZYDIS) 2.5 mg PRN Q2HR PRN PO PSYCHOSIS 05/31/20 14:30 06/06/20 18:00 Quetiapine Fumarate (SEROquel) 100 mg QHS PO 05/31/20 21:00 06/15/20 20:10 Trazodone HCl (Desyrel) 100 mg PRN QHS PRN PO INSOMNIA 05/31/20 14:45 06/15/20 20:09 Quetiapine Fumarate (SEROquel) 25 mg TID PO 05/31/20 21:00 05/31/20 18:26 DC Quetiapine Fumarate (SEROquel) 25 mg 0900,1300,1700 PO 06/01/20 09:00 06/15/20 18:07 Mirtazapine (Remeron) 7.5 mg QHS PO 06/01/20 21:00 06/05/20 16:31 DC 06/04/20 19:42 Sertraline HCl (Zoloft) 25 mg DAILY PO 06/03/20 09:00 06/05/20 16:31 DC 06/05/20 09:40 Mirtazapine (Remeron) 15 mg QHS PO 06/05/20 21:00 06/15/20 20:09 Sertraline HCl (Zoloft) 50 mg DAILY PO 06/06/20 09:00 06/09/20 11:00 DC 06/09/20 09:57 Sertraline HCl (Zoloft) 75 mg DAILY PO 06/10/20 09:00 06/15/20 08:28 Magnesium Citrate (Citroma) 296 ml 1X ONCE PO 06/11/20 19:30 06/11/20 19:51 DC 06/11/20 19:53 Magnesium Citrate (Citroma) 296 ml 1X ONCE PO 06/12/20 21:00 06/12/20 21:01 DC 06/12/20 19:45 Bisacodyl (Dulcolax Supp) 10 mg PRN DAILY PRN [place] 2ND CHOICE CONSTIPATION 06/12/20 19:15 06/13/20 11:58 Magnesium Citrate (Citroma) 296 ml 1X ONCE PO 06/13/20 18:45 06/13/20 18:46 DC I have reviewed the current psychotropics carefully including drug interactions. Risk benefit ratio favors no change other than as noted in my dictated progress note. Diagnosis: Problems: (1) Impulse control disorder, unspecified (2) Anxiety disorder, unspecified (3) Major neurocognitive disorder due to Parkinson's disease with behavioral disturbance (4) Dementia in Alzheimer's disease with depression (5) Dementia in Alzheimer's disease with delusions (6) Parkinson's disease HAYLEY GUZMAN MD Jun 16, 2020 08:48
[2020-06-16] MEDS: levETIRAcetam 500 MG TABLET PO SCH ×2 (08:51→20:30)
[2020-06-16] MEDS: CARBIDOPA/LEVODOPA 25/100MG TABLET PO SCH ×3 (08:51→20:29)
[2020-06-16] MEDS: PRAMIPEXOLE 0.25 MG TABLET. PO SCH ×2 (08:51→20:30)
[2020-06-16] MEDS: SERTRALINE 25 MG TABLET. PO SCH (08:51)
[2020-06-16] MEDS: QUEtiapine 25 MG TABLET. PO SCH ×3 (08:51→17:38)
[2020-06-16] MEDS: DOCUSATE SODIUM 100 MG CAPSULE PO SCH ×2 (08:51→20:30)
--- NOTE | 2020-06-16 15:26 | NUR ---
0915 this am SW met with pt 1:1 to discuss discharge on Sunday this week 06/18/20. Pt states, "That would be great." Pt asked for help in picking something up off of the floor. SW explained that he was just seeing the wood grains in the eleno as there was nothing there. Pt stated he was probably seeing a shadow. Pt stated he was just going to take a walk if that was okay. SW reassured pt that was just fine. Pt then initiated a hug with this SW before walking on.
[2020-06-16 16:05] VITALS: BP 111/69
--- NOTE | 2020-06-16 18:30 | NUR ---
Patient has been calm, compliant, and pleasantly confused throughout this shift. Will continue to monitor and report to oncoming shift.
[2020-06-16] MEDS: MIRTAZAPINE 15 MG TABLET PO SCH (20:29)
[2020-06-16] MEDS: QUEtiapine 100 MG TABLET. PO SCH (20:30)
[2020-06-16] MEDS: traZODone 100 MG TABLET. PO PRN (20:34)
--- NOTE | 2020-06-16 21:08 | PDOC ---
Exam Note: Jason Note: Please also refer to the separate dictated note~for this date of service dictated separately.~Patient seen individually. Discussed the patient with Nursing staff reviewed the chart.~Reviewed interim history and current functioning. Reviewed vital signs,~Labs/ Radiology~and current medications noted below. Continue current treatment with the changes noted in the dictated addendum note Assessment: Vital Signs/I&O: Vital Signs Date Time Temp Pulse Resp B/P (MAP) Pulse Ox O2 Delivery O2 Flow Rate FiO2 06/16/20 17:38 73 111/69 06/16/20 16:05 98.3 20 98 06/14/20 15:27 Room Air I & O 06/15/20 06/15/20 06/16/20 15:00 23:00 07:00 Intake Total 840 ml 360 ml Balance 840 ml 360 ml Current Medications: Meds: Current Medications Medications (Trade) Dose Ordered Sig/Rik Route PRN Reason Start Time Stop Time Status Last Admin Dose Admin Acetaminophen (Tylenol) 650 mg PRN Q6HRS PRN PO MILD PAIN / TEMP > 100.3'F 05/31/20 13:45 06/11/20 14:41 Multi-Ingredient Ointment (Analgesic [place]) 1 king PRN QID PRN TP MUSCLE PAIN 05/31/20 13:45 06/09/20 20:10 Al Hydroxide/Mg Hydroxide (Mylanta Plus Xs) 15 ml PRN AFTMEALHC PRN PO DYSPEPSIA 05/31/20 13:45 06/01/20 15:35 Magnesium Hydroxide (Milk Of Magnesia) 2,400 mg PRN QHS PRN PO 1ST CHOICE CONSTIPATION 05/31/20 13:45 06/12/20 08:35 Acetaminophen (Tylenol) 650 mg PRN Q6HRS PRN PO MILD PAIN / TEMP > 100.3'F 05/31/20 14:30 UNV Carbidopa/Levodopa (Sinemet 25/100) 2 tab TID PO 05/31/20 21:00 06/16/20 20:29 Vitamin D (Vitamin D3) 50,000 unit WEEKLY PO 06/03/20 09:00 06/10/20 10:51 Docusate Sodium (Colace) 100 mg BID PO 05/31/20 21:00 06/16/20 20:30 Levetiracetam (Keppra) 500 mg BID PO 05/31/20 21:00 06/16/20 20:30 Al Hydroxide/Mg Hydroxide (Mylanta Plus Xs) 15 ml PRN AFTMEALHC PRN PO DYSPEPSIA 05/31/20 14:30 UNV Magnesium Hydroxide (Milk Of Magnesia) 2,400 mg PRN QHS PRN PO CONSTIPATION 05/31/20 14:30 UNV Midodrine (Proamatine) 5 mg [id number] PO 05/31/20 18:00 06/13/20 06:14 Pramipexole Dihydrochloride (miraPEX) 0.25 mg BID PO 05/31/20 21:00 06/16/20 20:30 Non-Formulary Medication (Methyl Salicylate/ Menthol (Analgesic [place])) 1 king PRN QID PRN TP MUSCLE PAIN 05/31/20 14:30 UNV Olanzapine (ZyPREXA ZYDIS) 2.5 mg PRN Q2HR PRN PO PSYCHOSIS 05/31/20 14:30 06/06/20 18:00 Quetiapine Fumarate (SEROquel) 100 mg QHS PO 05/31/20 21:00 06/16/20 20:30 Trazodone HCl (Desyrel) 100 mg PRN QHS PRN PO INSOMNIA 05/31/20 14:45 06/16/20 20:34 Quetiapine Fumarate (SEROquel) 25 mg TID PO 05/31/20 21:00 05/31/20 18:26 DC Quetiapine Fumarate (SEROquel) 25 mg 0900,1300,1700 PO 06/01/20 09:00 06/16/20 17:38 Mirtazapine (Remeron) 7.5 mg QHS PO 06/01/20 21:00 06/05/20 16:31 DC 06/04/20 19:42 Sertraline HCl (Zoloft) 25 mg DAILY PO 06/03/20 09:00 06/05/20 16:31 DC 06/05/20 09:40 Mirtazapine (Remeron) 15 mg QHS PO 06/05/20 21:00 06/16/20 20:29 Sertraline HCl (Zoloft) 50 mg DAILY PO 06/06/20 09:00 06/09/20 11:00 DC 06/09/20 09:57 Sertraline HCl (Zoloft) 75 mg DAILY PO 06/10/20 09:00 06/16/20 08:51 Magnesium Citrate (Citroma) 296 ml 1X ONCE PO 06/11/20 19:30 06/11/20 19:51 DC 06/11/20 19:53 Magnesium Citrate (Citroma) 296 ml 1X ONCE PO 06/12/20 21:00 06/12/20 21:01 DC 06/12/20 19:45 Bisacodyl (Dulcolax Supp) 10 mg PRN DAILY PRN [place] 2ND CHOICE CONSTIPATION 06/12/20 19:15 06/13/20 11:58 Magnesium Citrate (Citroma) 296 ml 1X ONCE PO 06/13/20 18:45 06/13/20 18:46 DC I have reviewed the current psychotropics carefully including drug interactions. Risk benefit ratio favors no change other than as noted in my dictated progress note. Diagnosis: Problems: (1) Major neurocognitive disorder (2) Parkinson's disease (3) Impulse control disorder, unspecified (4) Anxiety disorder, unspecified (5) Major neurocognitive disorder due to Parkinson's disease with behavioral disturbance (6) Dementia in Alzheimer's disease with depression (7) Dementia in Alzheimer's disease with delusions HAYLEY GUZMAN MD Jun 16, 2020 21:08
--- NOTE | 2020-06-16 22:18 | NUR ---
Pt wandering around the dayroom this evening. Quiet and cooperative. Compliant with whole medications.
[2020-06-17 05:11] VITALS: BP 144/68
[2020-06-17] MEDS: MIDODRINE 5 MG TABLET PO SCH ×3 (07:00→18:11)
--- NOTE | 2020-06-17 07:42 | NUR ---
BP 144/68, HR 61. Morning dose of Midodrine held.
[2020-06-17] MEDS: CARBIDOPA/LEVODOPA 25/100MG TABLET PO SCH ×3 (08:18→20:06)
[2020-06-17] MEDS: QUEtiapine 25 MG TABLET. PO SCH ×3 (08:18→17:00)
[2020-06-17] MEDS: SERTRALINE 25 MG TABLET. PO SCH (08:18)
[2020-06-17] MEDS: levETIRAcetam 500 MG TABLET PO SCH ×2 (08:18→20:06)
[2020-06-17] MEDS: PRAMIPEXOLE 0.25 MG TABLET. PO SCH ×2 (08:18→20:06)
[2020-06-17] MEDS: DOCUSATE SODIUM 100 MG CAPSULE PO SCH ×2 (08:18→20:06)
[2020-06-17] MEDS: CHOLECALCIFEROL (VITAMIN D3) 50,000 UNIT CAPSULE PO SCH (08:20)
--- NOTE | 2020-06-17 08:41 | PDOC ---
Exam Note: Jason Note: This note is a late entry for 06/16/2020 covers elements not covered in my initial note. Subjective: The patient was seen face to face in the evening of 06/16/2020 with Kristian BLANC, discussed and reviewed the chart. He slept 7-1/2 hours previous night. His gait is unsteady on getting up. He remains confused, head bent forward. Review of Systems: Ambulation impaired. No CV, , pulmonary, eye, ENT system symptoms on review. Reliability poor. Mental Status Exam: The patient is oriented to himself and situation. Speech is low in rate and rhythm, low in volume. Often response is monosyllabic. Insight and judgement, recent and remote memory, attention and concentration, fund of knowledge is poor consistent with his diagnosis. Mood and affect quite withdrawn. Laboratory Data: Reviewed. 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 Anxiety disorder unspecified. Impulse control disorder unspecified. Parkinsons disease. Plan: No change from initial note. Assessment: Vital Signs/I&O: Vital Signs Date Time Temp Pulse Resp B/P (MAP) Pulse Ox O2 Delivery O2 Flow Rate FiO2 06/17/20 07:00 61 144/68 06/17/20 05:11 97.5 16 97 06/14/20 15:27 Room Air I & O 06/16/20 06/16/20 06/17/20 15:00 23:00 07:00 Intake Total 840 ml 900 ml Balance 840 ml 900 ml Current Medications: Meds: Current Medications Medications (Trade) Dose Ordered Sig/Rik Route PRN Reason Start Time Stop Time Status Last Admin Dose Admin Acetaminophen (Tylenol) 650 mg PRN Q6HRS PRN PO MILD PAIN / TEMP > 100.3'F 05/31/20 13:45 06/11/20 14:41 Multi-Ingredient Ointment (Analgesic [place]) 1 king PRN QID PRN TP MUSCLE PAIN 05/31/20 13:45 06/09/20 20:10 Al Hydroxide/Mg Hydroxide (Mylanta Plus Xs) 15 ml PRN AFTMEALHC PRN PO DYSPEPSIA 05/31/20 13:45 06/01/20 15:35 Magnesium Hydroxide (Milk Of Magnesia) 2,400 mg PRN QHS PRN PO 1ST CHOICE CONSTIPATION 05/31/20 13:45 06/12/20 08:35 Acetaminophen (Tylenol) 650 mg PRN Q6HRS PRN PO MILD PAIN / TEMP > 100.3'F 05/31/20 14:30 UNV Carbidopa/Levodopa (Sinemet 25/100) 2 tab TID PO 05/31/20 21:00 06/17/20 08:18 Vitamin D (Vitamin D3) 50,000 unit WEEKLY PO 06/03/20 09:00 06/17/20 08:20 Docusate Sodium (Colace) 100 mg BID PO 05/31/20 21:00 06/17/20 08:18 Levetiracetam (Keppra) 500 mg BID PO 05/31/20 21:00 06/17/20 08:18 Al Hydroxide/Mg Hydroxide (Mylanta Plus Xs) 15 ml PRN AFTMEALHC PRN PO DYSPEPSIA 05/31/20 14:30 UNV Magnesium Hydroxide (Milk Of Magnesia) 2,400 mg PRN QHS PRN PO CONSTIPATION 05/31/20 14:30 UNV Midodrine (Proamatine) 5 mg [id number] PO 05/31/20 18:00 06/13/20 06:14 Pramipexole Dihydrochloride (miraPEX) 0.25 mg BID PO 05/31/20 21:00 06/17/20 08:18 Non-Formulary Medication (Methyl Salicylate/ Menthol (Analgesic Wallace)) 1 king PRN QID PRN TP MUSCLE PAIN 05/31/20 14:30 UNV Olanzapine (ZyPREXA ZYDIS) 2.5 mg PRN Q2HR PRN PO PSYCHOSIS 05/31/20 14:30 06/06/20 18:00 Quetiapine Fumarate (SEROquel) 100 mg QHS PO 05/31/20 21:00 06/16/20 20:30 Trazodone HCl (Desyrel) 100 mg PRN QHS PRN PO INSOMNIA 05/31/20 14:45 06/16/20 20:34 Quetiapine Fumarate (SEROquel) 25 mg TID PO 05/31/20 21:00 05/31/20 18:26 DC Quetiapine Fumarate (SEROquel) 25 mg 0900,1300,1700 PO 06/01/20 09:00 06/17/20 08:18 Mirtazapine (Remeron) 7.5 mg QHS PO 06/01/20 21:00 06/05/20 16:31 DC 06/04/20 19:42 Sertraline HCl (Zoloft) 25 mg DAILY PO 06/03/20 09:00 06/05/20 16:31 DC 06/05/20 09:40 Mirtazapine (Remeron) 15 mg QHS PO 06/05/20 21:00 06/16/20 20:29 Sertraline HCl (Zoloft) 50 mg DAILY PO 06/06/20 09:00 06/09/20 11:00 DC 06/09/20 09:57 Sertraline HCl (Zoloft) 75 mg DAILY PO 06/10/20 09:00 06/17/20 08:18 Magnesium Citrate (Citroma) 296 ml 1X ONCE PO 06/11/20 19:30 06/11/20 19:51 DC 06/11/20 19:53 Magnesium Citrate (Citroma) 296 ml 1X ONCE PO 06/12/20 21:00 06/12/20 21:01 DC 06/12/20 19:45 Bisacodyl (Dulcolax Supp) 10 mg PRN DAILY PRN [place] 2ND CHOICE CONSTIPATION 06/12/20 19:15 06/13/20 11:58 Magnesium Citrate (Citroma) 296 ml 1X ONCE PO 06/13/20 18:45 06/13/20 18:46 DC I have reviewed the current psychotropics carefully including drug interactions. Risk benefit ratio favors no change other than as noted in my dictated progress note. Diagnosis: Problems: (1) Impulse control disorder, unspecified (2) Anxiety disorder, unspecified (3) Major neurocognitive disorder due to Parkinson's disease with behavioral disturbance (4) Dementia in Alzheimer's disease with depression (5) Dementia in Alzheimer's disease with delusions (6) Lewy body dementia with behavioral disturbance (7) Parkinson's disease HAYLEY GUZMAN MD Jun 17, 2020 08:41
[2020-06-17 08:59] LABS: BASO # 0.1 x10^3/uL (0.0-0.2); BASO % 1 % (0-3); EOS # 0.2 x10^3/uL (0.0-0.7); EOS % 2 % (0-3); LYMPH # 1.4 x10^3/uL (1.0-4.8); LYMPH % 11 % (24-48); MEAN CORPUSCULAR HEMOGLOBIN 30 pg (25-35); MEAN CORPUSCULAR HGB CONC 33 g/dL (31-37); MEAN CORPUSCULAR VOLUME 90 fL (79-100); MONO # 0.8 x10^3/uL (0.0-1.1); MONO % 7 % (0-9); NEUT # 9.6 x10^3uL (1.8-7.7); NEUT % 80 % (31-73); PLATELET COUNT 285 x10^3/uL (140-400); RED CELL DISTRIBUTION WIDTH 13.7 % (11.5-14.5)
[2020-06-17 09:13] LABS: ALBUMIN 3.3 g/dL (3.4-5.0); CALCIUM 9.2 mg/dL (8.5-10.1); CREATININE 0.9 mg/dL (0.7-1.3); GFR 84.7; POTASSIUM 3.9 mmol/L (3.5-5.1); TOTAL BILIRUBIN 0.6 mg/dL (0.2-1.0); TOTAL PROTEIN 6.7 g/dL (6.4-8.2)
--- NOTE | 2020-06-17 09:43 | NUR ---
WEEKLY ACTIVITY THERAPY NOTE Date of Admission: 05/31/2020 Date of AT Assessment: 06/02/20 Precipitating behaviors that initiated intake and admission: agitated, verbally aggressive towards staff, impulsive, poor safety, grabbing/swatting at staff, angry, resists meds at times Goal aimed: increase time management and socialization skills Initial Goal: Pt will participate in at least one individual or group Activity Therapy session per week. Weekly progress towards goal: exceeded, / Group participation level: 2 min, 1 full Weekly highlights: fully engaged in kaleo/ western music bingo on Sunday Behaviors observed: generally wandering around room/lazcano, calm when around group and needs direct prompting and extra time to process Plan: no change to goal Beneficial adaptations:
--- NOTE | 2020-06-17 11:35 | TX PLAN ---
Interdisciplinary Tx Plan Admission Information May 31, 2020 at 11:40 Legal Status (on Admission): Voluntary DPOA/Guardian Name: Radha El (Rosie)- Contact Other Contact Name: Faraz El (Steve) Other Contact Verified Code Status: Full Code Allergies: Coded Allergies: No Known Drug Allergies (Unverified , 05/19/20) Diagnoses Primary Diagnosis: (1) Impulse control disorder, unspecified (2) Anxiety disorder, unspecified (3) Major neurocognitive disorder due to Parkinson's disease with behavioral disturbance (4) Dementia in Alzheimer's disease with depression (5) Dementia in Alzheimer's disease with delusions (6) Lewy body dementia with behavioral disturbance (7) Major neurocognitive disorder Reasons for Admission: Delusions, Agitated, Hallucinations, Confusion/Disoriented Problem in Patient's Words: Per pt , "he has parkinson's and has an appointment scheduled with Dr. Keron barry neurologist at [facility] on 08/17/20. He has started to see things or hear things that aren't there. He was thinking that I was having affairs in front of him. He was becoming increasingly agitated and had even threatened to hit me. In front of hospital staff, he had called me an inappropriate name. These behaviors have come on all of the sudden within the past couple of months." Additional Admission Comments: Per intake record, pt became agitated with his at home, experiencing delusions, visual hallucinations, thinks his is trying to kill him, threatened to hit , yelling for help, rushed outside in a blizzard, and is paranoid. Problems Active Problems: Hallucinations, delusions, agitation Inactive Problems: None Pt Strengths/Limitations Ability for [place]: Poor Cognitive Functioning/Ability: Fair Communication Skills/Ability: Good Financial Resources: Good Insight/Judgement: Poor Intellectual Ability: Good Physical Health: Fair Social Skills: Good Stability in Family: Good Stability in School/Work: Good Verbal Skills: Good Discharge Criteria Discharge Criteria: No need for close observ., Able to meet health needs, Adequate arrangements @DC, Adequate self-care, Verbal commit med comply, Improved behavior, Improved mood/thought Other Discharge Comments: None at this time Preliminary Discharge Plan Preliminary DC Plan: Home Special Precautions Special Precautions: Agitation/Assault Fall Risk: Moderate Initial D/C Plan Plan is return home rick bass. Identified Discharge Needs: Pt is scheduled with Dr. Cabrales on 08/17/20 and is encouraged to keep that appointment. Currently Utilized Resources Currently Utilized Resources/P: PCP is Dr. Trevino /DPOA is Radha Nelson (Rosie)e Neurologist is Dr. Cabrales Referrals Community Resources: None noted at this time. Identified Problems/Hx/Goals Objectives/Short-Term Goals Short Term Goals: Control abnormal behavior, Dec. Hallucination/Delus, Dec. Outbursts, Medication Stabilization, Monitor Med Effects, Prevent Deterioration Short Term Goals in Patient's: "Have medications be looked at, monitored, and stablized until we can get into our appointment on 08/17/[address] Cabrales. Interventions/Frequency Staff Interventions/Frequency&: Psychiatry to assess pt three times per week for medication management. Nursing to assess behaviors, monitor medications, and complete 15 minute checks daily. Social work to see pt at least twice weekly to aid in return home. Activities to encourage pt to participate in group activities daily. 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 Education: Bachelors degree from [employer] in accounting. Community Follow-up PCP Neurologist Community Provider/Family Inpu: /DPEma CORTEZ, provided input at treatment team meeting and gave insight to behaviors noticed, history of medications, and upcoming appt with Dr. Cabrales. Treatment Plan Explained Patient/Lost And Found Clerk had this treatment plan explained to him/her as indicated by the signature below and has been given the opportunity to ask questions and make suggestions: Date: Patient/Lost And Found Clerk Signature: Status Update Update Pt continues to eat about 50% of his meals feeding himself. He has been averaging seven hours of sleep per night. Pt /DPEma CORTEZ, participated in today's treatment team meeting. D/C home is scheduled for tomorrow 06/18/20. Pt continues to wander unit, but does not exit seek. He continues to not show any aggression or agitation and is easily directed. Pt is compliant with ADLs and taking medications. Pt is currently prescribed carbidopa/levodopa, zyprexa zydis PRN, Seroquel, Mirapex, Keppra, Remeron, and Trazodone PRN. It was suggested to to give the Trazodone if it was noticed that he wasn't sleeping well. Pt will d/c with a 30 day script plus two additional refills. BRIGIDA POWER Jun 17, 2020 11:35
--- NOTE | 2020-06-17 11:36 | NUR ---
[facility] Social Work Discharge Planning Form Patient Name CARL OLMOS Admit Date: 210 DISCHARGE PLAN Discharge Destination: Home Care Assessment: No Level II Assessment: No Transportation: will spanish moss picker at 1300 Special Instructions/Notes: Please provide a copy of d/c orders to pt /Ema SANTIAGO and fax a copy to pt PCP, Dr. Trevino at (f)[phone] and Neurologist, Dr. Cabrales (T)[phone]. DISCHARGE TO HOME: Address: [address] [place] [address] Responsible Constitution Party: /Radha SANTIAGO "S[facility]: [facility] (P)[phone] (V)[phone] Neurology Follow Up: Appt scheduled with Dr. Cabrales (P)[phone] (Q) [phone] at [facility] on 08/17/20 at 8:00 am Addendum: 06/17/20 at 1210 by BRIGIDA ROSENBERG Admit Date: 05/31/20
--- NOTE | 2020-06-17 12:41 | NUR ---
Pt has been appropriate and med complaint this shift. He has been absent of disruptive behaviors thus far. He is appropriate in his interactions with pts/staff. He has been wandering frequently, at times found in other pt's rooms. He is difficult to assess d/t his primarily limited/reduced verbal state. He has been absent of SI/HI behaviors, absent of disturbance/distraction of potential internal stimuli. Will pass on to the next shift.
[2020-06-17 15:12] VITALS: BP 105/65
[2020-06-17] MEDS: MIRTAZAPINE 15 MG TABLET PO SCH (20:06)
[2020-06-17] MEDS: traZODone 100 MG TABLET. PO PRN (20:06)
[2020-06-17] MEDS: QUEtiapine 100 MG TABLET. PO SCH (20:06)
--- NOTE | 2020-06-17 21:06 | PDOC ---
Exam Note: Jason Note: Please also refer to the separate dictated note~for this date of service dictated separately.~Patient seen individually. Discussed the patient with Nursing staff reviewed the chart.~Reviewed interim history and current functioning. Reviewed vital signs,~Labs/ Radiology~and current medications noted below. Continue current treatment with the changes noted in the dictated addendum note Assessment: Vital Signs/I&O: Vital Signs Date Time Temp Pulse Resp B/P (MAP) Pulse Ox O2 Delivery O2 Flow Rate FiO2 06/17/20 18:11 76 105/65 06/17/20 05:11 97.5 16 97 06/14/20 15:27 Room Air I & O 06/16/20 06/16/20 06/17/20 15:00 23:00 07:00 Intake Total 840 ml 900 ml Balance 840 ml 900 ml Labs: Laboratory Tests Test 06/17/20 08:49 White Blood Count 12.0 x10^3/uL (4.0-11.0) H Red Blood Count 5.00 x10^6/uL (4.30-5.70) Hemoglobin 15.0 g/dL (13.0-17.5) Hematocrit 45.0 % (39.0-53.0) Mean Corpuscular Volume 90 fL (79-100) Mean Corpuscular Hemoglobin 30 pg (25-35) Mean Corpuscular Hemoglobin Concent 33 g/dL (31-37) Red Cell Distribution Width 13.7 % (11.5-14.5) Platelet Count 285 x10^3/uL (140-400) Neutrophils (%) (Auto) 80 % (31-73) H Lymphocytes (%) (Auto) 11 % (24-48) L Monocytes (%) (Auto) 7 % (0-9) Eosinophils (%) (Auto) 2 % (0-3) Basophils (%) (Auto) 1 % (0-3) Neutrophils # (Auto) 9.6 x10^3uL (1.8-7.7) H Lymphocytes # (Auto) 1.4 x10^3/uL (1.0-4.8) Monocytes # (Auto) 0.8 x10^3/uL (0.0-1.1) Eosinophils # (Auto) 0.2 x10^3/uL (0.0-0.7) Basophils # (Auto) 0.1 x10^3/uL (0.0-0.2) Sodium Level 144 mmol/L (136-145) Potassium Level 3.9 mmol/L (3.5-5.1) Chloride Level 106 mmol/L (98-107) Carbon Dioxide Level 32 mmol/L (21-32) Anion Gap 6 (6-14) Blood Urea Nitrogen 18 mg/dL (8-26) Creatinine 0.9 mg/dL (0.7-1.3) Estimated GFR (Cockcroft-Gault) 84.7 BUN/Creatinine Ratio 20 (6-20) Glucose Level 116 mg/dL (70-99) H Calcium Level 9.2 mg/dL (8.5-10.1) Total Bilirubin 0.6 mg/dL (0.2-1.0) Aspartate Amino Transferase (AST) 23 U/L (15-37) Alanine Aminotransferase (ALT) 16 U/L (16-63) Alkaline Phosphatase 84 U/L (46-116) Total Protein 6.7 g/dL (6.4-8.2) Albumin 3.3 g/dL (3.4-5.0) L Albumin/Globulin Ratio 1.0 (1.0-1.7) Current Medications: Meds: Laboratory Tests Test 06/17/20 08:49 White Blood Count 12.0 x10^3/uL Red Blood Count 5.00 x10^6/uL Hemoglobin 15.0 g/dL Hematocrit 45.0 % Mean Corpuscular Volume 90 fL Mean Corpuscular Hemoglobin 30 pg Mean Corpuscular Hemoglobin Concent 33 g/dL Red Cell Distribution Width 13.7 % Platelet Count 285 x10^3/uL Neutrophils (%) (Auto) 80 % Lymphocytes (%) (Auto) 11 % Monocytes (%) (Auto) 7 % Eosinophils (%) (Auto) 2 % Basophils (%) (Auto) 1 % Neutrophils # (Auto) 9.6 x10^3uL Lymphocytes # (Auto) 1.4 x10^3/uL Monocytes # (Auto) 0.8 x10^3/uL Eosinophils # (Auto) 0.2 x10^3/uL Basophils # (Auto) 0.1 x10^3/uL Sodium Level 144 mmol/L Potassium Level 3.9 mmol/L Chloride Level 106 mmol/L Carbon Dioxide Level 32 mmol/L Anion Gap 6 Blood Urea Nitrogen 18 mg/dL Creatinine 0.9 mg/dL Estimated GFR (Cockcroft-Gault) 84.7 BUN/Creatinine Ratio 20 Glucose Level 116 mg/dL Calcium Level 9.2 mg/dL Total Bilirubin 0.6 mg/dL Aspartate Amino Transf (AST/SGOT) 23 U/L Alanine Aminotransferase (ALT/SGPT) 16 U/L Alkaline Phosphatase 84 U/L Total Protein 6.7 g/dL Albumin 3.3 g/dL Albumin/Globulin Ratio 1.0 Current Medications Medications (Trade) Dose Ordered Sig/Rik Route PRN Reason Start Time Stop Time Status Last Admin Dose Admin Acetaminophen (Tylenol) 650 mg PRN Q6HRS PRN PO MILD PAIN / TEMP > 100.3'F 05/31/20 13:45 06/11/20 14:41 Multi-Ingredient Ointment (Analgesic [place]) 1 king PRN QID PRN TP MUSCLE PAIN 05/31/20 13:45 06/09/20 20:10 Al Hydroxide/Mg Hydroxide (Mylanta Plus Xs) 15 ml PRN AFTMEALHC PRN PO DYSPEPSIA 05/31/20 13:45 06/01/20 15:35 Magnesium Hydroxide (Milk Of Magnesia) 2,400 mg PRN QHS PRN PO 1ST CHOICE CONSTIPATION 05/31/20 13:45 06/12/20 08:35 Acetaminophen (Tylenol) 650 mg PRN Q6HRS PRN PO MILD PAIN / TEMP > 100.3'F 05/31/20 14:30 UNV Carbidopa/Levodopa (Sinemet 25/100) 2 tab TID PO 05/31/20 21:00 06/17/20 20:06 Vitamin D (Vitamin D3) 50,000 unit WEEKLY PO 06/03/20 09:00 06/17/20 08:20 Docusate Sodium (Colace) 100 mg BID PO 05/31/20 21:00 06/17/20 20:06 Levetiracetam (Keppra) 500 mg BID PO 05/31/20 21:00 06/17/20 20:06 Al Hydroxide/Mg Hydroxide (Mylanta Plus Xs) 15 ml PRN AFTMEALHC PRN PO DYSPEPSIA 05/31/20 14:30 UNV Magnesium Hydroxide (Milk Of Magnesia) 2,400 mg PRN QHS PRN PO CONSTIPATION 05/31/20 14:30 UNV Midodrine (Proamatine) 5 mg [id number] PO 05/31/20 18:00 06/17/20 18:11 Pramipexole Dihydrochloride (miraPEX) 0.25 mg BID PO 05/31/20 21:00 06/17/20 20:06 Non-Formulary Medication (Methyl Salicylate/ Menthol (Analgesic [place])) 1 king PRN QID PRN TP MUSCLE PAIN 05/31/20 14:30 UNV Olanzapine (ZyPREXA ZYDIS) 2.5 mg PRN Q2HR PRN PO PSYCHOSIS 05/31/20 14:30 06/06/20 18:00 Quetiapine Fumarate (SEROquel) 100 mg QHS PO 05/31/20 21:00 06/17/20 20:06 Trazodone HCl (Desyrel) 100 mg PRN QHS PRN PO INSOMNIA 05/31/20 14:45 06/17/20 20:06 Quetiapine Fumarate (SEROquel) 25 mg TID PO 05/31/20 21:00 05/31/20 18:26 DC Quetiapine Fumarate (SEROquel) 25 mg 0900,1300,1700 PO 06/01/20 09:00 06/17/20 17:00 Mirtazapine (Remeron) 7.5 mg QHS PO 06/01/20 21:00 06/05/20 16:31 DC 06/04/20 19:42 Sertraline HCl (Zoloft) 25 mg DAILY PO 06/03/20 09:00 06/05/20 16:31 DC 06/05/20 09:40 Mirtazapine (Remeron) 15 mg QHS PO 06/05/20 21:00 06/17/20 20:06 Sertraline HCl (Zoloft) 50 mg DAILY PO 06/06/20 09:00 06/09/20 11:00 DC 06/09/20 09:57 Sertraline HCl (Zoloft) 75 mg DAILY PO 06/10/20 09:00 06/17/20 08:18 Magnesium Citrate (Citroma) 296 ml 1X ONCE PO 06/11/20 19:30 06/11/20 19:51 DC 06/11/20 19:53 Magnesium Citrate (Citroma) 296 ml 1X ONCE PO 06/12/20 21:00 06/12/20 21:01 DC 06/12/20 19:45 Bisacodyl (Dulcolax Supp) 10 mg PRN DAILY PRN [place] 2ND CHOICE CONSTIPATION 06/12/20 19:15 06/13/20 11:58 Magnesium Citrate (Citroma) 296 ml 1X ONCE PO 06/13/20 18:45 06/13/20 18:46 DC I have reviewed the current psychotropics carefully including drug interactions. Risk benefit ratio favors no change other than as noted in my dictated progress note. Diagnosis: Problems: (1) Major neurocognitive disorder (2) Lewy body dementia with behavioral disturbance (3) Major neurocognitive disorder due to Parkinson's disease with behavioral disturbance (4) Anxiety disorder, unspecified (5) Impulse control disorder, unspecified (6) Parkinson's disease (7) Dementia in Alzheimer's disease with delusions (8) Dementia in Alzheimer's disease with depression HAYLEY GUZMAN MD Jun 17, 2020 21:06
--- NOTE | 2020-06-17 21:34 | NUR ---
Pt wandering in day room at shift change. Pt calm, pleasant, and interactive when approached. Pt cooperative with assessment and compliant with medications administered whole.
[2020-06-18] MEDS ORDERED: BISA10SU4 RC (00:28)
[2020-06-18] MEDS ORDERED: MIRT15TA3 PO (00:28)
[2020-06-18] MEDS ORDERED: TRAZ-125 PO (00:29)
[2020-06-18] MEDS ORDERED: SERT25TA PO (00:29)
[2020-06-18] MEDS: MIDODRINE 5 MG TABLET PO SCH ×2 (05:51→07:12)
[2020-06-18 05:57] VITALS: BP 131/64
[2020-06-18 07:12] VITALS: BP 131/64
--- NOTE | 2020-06-18 07:21 | NUR ---
BP 131/64, HR 56. Morning dose of Midodrine held.
[2020-06-18] MEDS: QUEtiapine 25 MG TABLET. PO SCH ×2 (07:29→12:37)
[2020-06-18] MEDS: levETIRAcetam 500 MG TABLET PO SCH (07:29)
[2020-06-18] MEDS: SERTRALINE 25 MG TABLET. PO SCH (07:29)
[2020-06-18] MEDS: CARBIDOPA/LEVODOPA 25/100MG TABLET PO SCH ×2 (07:29→12:37)
[2020-06-18] MEDS: DOCUSATE SODIUM 100 MG CAPSULE PO SCH (07:30)
[2020-06-18] MEDS: PRAMIPEXOLE 0.25 MG TABLET. PO SCH (07:30)
--- NOTE | 2020-06-18 09:30 | NUR ---
Spoke with Yordan, Pharmacist and [facility] ([phone]) to reivew/verify pt's d/c medications and to confirm 1 month prescription with 2 refills. Instructed pharmacist to not fill orders for medications with OTC option out of consideration for pt's family finances unless/until pt's family states they prefer pharmacist fills the prescription. Pharmacist verbalized understanding.
--- NOTE | 2020-06-18 10:10 | NUR ---
Pt has started the morning standing around in his doorway. He appears a little frustrated and states he needs to "pay a bill" before he discharges this afternoon. This nurse attempted to alleviate his concerns by stating that his would be addressing the bill, however he does not appear to have his worries alleviated. He reports some pain in his "ass" and states displeasure regarding staff attempts at cleaning him after he has a BM. When asked if he is being wiped too hard and if the skin is sensitive he is unable to clarify specifically the topic of discontent. He denies constipation at this time and has no concerns aside from his pending d/c. He is absent of SI/HI behaviors, appears absent of experiencing VH/AH, absent of verbal/physical aggression. Will continue to progress towards d/c.
--- NOTE | 2020-06-18 13:24 | NUR ---
Transition Record was faxed to follow-up provider with the following elements: Reason for admission, procedures, tests, principal diagnosis, pending studies, patient instructions, 13/11 contact information for unit, phone number to obtain pending test results, plan for follow-up care, physician follow-up, advanced directive information, and medication list with dose, duration and instructions. This information was included in the following documents: History and physical, lab results, study results, progress notes, social work planning form, DC instruction form, patient visit summary, and medication reconciliation form. Date & time record faxed: 06/18/2031 Record faxed to: Dr Trevino ([phone]) Record discussed with/ report given to: , pt being sent directly home
--- NOTE | 2020-06-18 20:48 | PDOC ---
Exam Note: Jason Note: Please also refer to the separate dictated note~for this date of service dictated separately.~Patient seen individually. Discussed the patient with Nursing staff reviewed the chart.~Reviewed interim history and current functioning. Reviewed vital signs,~Labs/ Radiology~and current medications noted below. Continue current treatment with the changes noted in the dictated addendum note Assessment: Vital Signs/I&O: Vital Signs Date Time Temp Pulse Resp B/P (MAP) Pulse Ox O2 Delivery O2 Flow Rate FiO2 06/18/20 07:12 56 131/64 06/18/20 05:57 97.8 18 97 06/14/20 15:27 Room Air I & O 06/17/20 06/17/20 06/18/20 15:00 23:00 07:00 Intake Total 100 ml 360 ml Balance 100 ml 360 ml Current Medications: Meds: Current Medications Medications (Trade) Dose Ordered Sig/Rik Route PRN Reason Start Time Stop Time Status Last Admin Dose Admin Acetaminophen (Tylenol) 650 mg PRN Q6HRS PRN PO MILD PAIN / TEMP > 100.3'F 05/31/20 13:45 06/18/20 13:53 DC 06/11/20 14:41 Multi-Ingredient Ointment (Analgesic [place]) 1 king PRN QID PRN TP MUSCLE PAIN 05/31/20 13:45 06/18/20 13:53 DC 06/09/20 20:10 Al Hydroxide/Mg Hydroxide (Mylanta Plus Xs) 15 ml PRN AFTMEALHC PRN PO DYSPEPSIA 05/31/20 13:45 06/18/20 13:53 DC 06/01/20 15:35 Magnesium Hydroxide (Milk Of Magnesia) 2,400 mg PRN QHS PRN PO 1ST CHOICE CONSTIPATION 05/31/20 13:45 06/18/20 13:53 DC 06/12/20 08:35 Acetaminophen (Tylenol) 650 mg PRN Q6HRS PRN PO MILD PAIN / TEMP > 100.3'F 05/31/20 14:30 UNV Carbidopa/Levodopa (Sinemet 25/100) 2 tab TID PO 05/31/20 21:00 06/18/20 13:53 DC 06/18/20 12:37 Vitamin D (Vitamin D3) 50,000 unit WEEKLY PO 06/03/20 09:00 06/18/20 13:53 DC 06/17/20 08:20 Docusate Sodium (Colace) 100 mg BID PO 05/31/20 21:00 06/18/20 13:53 DC 06/18/20 07:30 Levetiracetam (Keppra) 500 mg BID PO 05/31/20 21:00 06/18/20 13:53 DC 06/18/20 07:29 Al Hydroxide/Mg Hydroxide (Mylanta Plus Xs) 15 ml PRN AFTMEALHC PRN PO DYSPEPSIA 05/31/20 14:30 UNV Magnesium Hydroxide (Milk Of Magnesia) 2,400 mg PRN QHS PRN PO CONSTIPATION 05/31/20 14:30 UNV Midodrine (Proamatine) 5 mg [id number] PO 05/31/20 18:00 06/18/20 13:53 DC 06/17/20 18:11 Pramipexole Dihydrochloride (miraPEX) 0.25 mg BID PO 05/31/20 21:00 06/18/20 13:53 DC 06/18/20 07:30 Non-Formulary Medication (Methyl Salicylate/ Menthol (Analgesic [place])) 1 king PRN QID PRN TP MUSCLE PAIN 05/31/20 14:30 UNV Olanzapine (ZyPREXA ZYDIS) 2.5 mg PRN Q2HR PRN PO PSYCHOSIS 05/31/20 14:30 06/18/20 13:53 DC 06/06/20 18:00 Quetiapine Fumarate (SEROquel) 100 mg QHS PO 05/31/20 21:00 06/18/20 13:53 DC 06/17/20 20:06 Trazodone HCl (Desyrel) 100 mg PRN QHS PRN PO INSOMNIA 05/31/20 14:45 06/18/20 13:53 DC 06/17/20 20:06 Quetiapine Fumarate (SEROquel) 25 mg TID PO 05/31/20 21:00 05/31/20 18:26 DC Quetiapine Fumarate (SEROquel) 25 mg 0900,1300,1700 PO 06/01/20 09:00 06/18/20 13:53 DC 06/18/20 12:37 Mirtazapine (Remeron) 7.5 mg QHS PO 06/01/20 21:00 06/05/20 16:31 DC 06/04/20 19:42 Sertraline HCl (Zoloft) 25 mg DAILY PO 06/03/20 09:00 06/05/20 16:31 DC 06/05/20 09:40 Mirtazapine (Remeron) 15 mg QHS PO 06/05/20 21:00 06/18/20 13:53 DC 06/17/20 20:06 Sertraline HCl (Zoloft) 50 mg DAILY PO 06/06/20 09:00 06/09/20 11:00 DC 06/09/20 09:57 Sertraline HCl (Zoloft) 75 mg DAILY PO 06/10/20 09:00 06/18/20 13:53 DC 06/18/20 07:29 Magnesium Citrate (Citroma) 296 ml 1X ONCE PO 06/11/20 19:30 06/11/20 19:51 DC 06/11/20 19:53 Magnesium Citrate (Citroma) 296 ml 1X ONCE PO 06/12/20 21:00 06/12/20 21:01 DC 06/12/20 19:45 Bisacodyl (Dulcolax Supp) 10 mg PRN DAILY PRN SD 2ND CHOICE CONSTIPATION 06/12/20 19:15 06/18/20 13:53 DC 06/13/20 11:58 Magnesium Citrate (Citroma) 296 ml 1X ONCE PO 06/13/20 18:45 06/13/20 18:46 DC I have reviewed the current psychotropics carefully including drug interactions. Risk benefit ratio favors no change other than as noted in my dictated progress note. Diagnosis: Problems: (1) Major neurocognitive disorder (2) Major neurocognitive disorder due to Parkinson's disease with behavioral disturbance (3) Dementia in Alzheimer's disease with depression (4) Dementia in Alzheimer's disease with delusions (5) Anxiety disorder, unspecified (6) Impulse control disorder, unspecified HAYLEY GUZMAN MD Jun 18, 2020 20:48
--- NOTE | 2020-06-19 14:50 | DS ---
DATE OF DISCHARGE: 06/18/2020 DISCHARGE SUMMARY/PSYCHIATRIC PROGRESS NOTE This is late entry, date of service 06/18/2020, covers elements that were not covered in my initial note. REASON FOR ADMISSION: Please refer to the admission history for details. The patient returned back to the [facility] once he was medically stabilized in the ICU. He continued to be intermittently agitated, verbally aggressive towards staff, impulsive with poor safety boundaries. He was grabbing and swatting at staff in the ICU, angry, resistive to medications. He had been on the [facility], then was medically compromised, transferred to the ICU and now returns to us post-stabilization of his COVID-19 infection. SIGNIFICANT FINDINGS AND CLINICAL COURSE: Following admission, the patient was seen daily individually by myself from a psychiatric standpoint, medical follow up with Dr. Eugene/Dr Rome. The patient continued to be confused with symptoms consistent with Lewy body dementia. Adjustments were made in his psychotropics and he seemed to respond to a combination of Seroquel 100 mg at bedtime and 25 mg 0900, 1300, 1700; Remeron 15 mg at bedtime, trazodone 100 mg at bedtime p.r.n. insomnia, Zoloft 75 mg a day. He remained on Sinemet and Mirapex for his Parkinson's and Keppra for seizures. Gradually mood appeared to improve as did the agitation and psychotic symptoms. He continued to speak in a very low tone, but this was consistent with his diagnosis. Prior to discharge, 06/18/2020, ambulation impaired. No CV, , pulmonary, eye system symptoms on review. MENTAL STATUS EXAM: Oriented to himself and situation. Speech moderate to marked latency, low in rate and rhythm, low in volume. Abstraction fair, computation impaired, language function intact, attention span short. Mood and affect withdrawn. Again, anger, aggression, disruptive behaviors had subsided. CONDITION AT DISCHARGE: Improved. FINAL DIAGNOSES: Major neurocognitive disorder, probably early Lewy body with delusion, depression; anxiety disorder, unspecified; impulse control disorder, unspecified. DISCHARGE MEDICATIONS: Please refer to the MRAD. DISCHARGE INSTRUCTIONS: Outpatient psychiatric and medical followup is arranged prior to discharge. HAYLEY GUZMAN MD DR: SYL/stevo JOB#: [id number] / [id number]
--- NOTE | 2020-06-20 20:57 | PDOC ---
Exam Note: Jason Note: This note is a late entry for 06/17/2020 covers elements not covered in my initial note. Subjective: The patient was seen face to face in the morning of 06/17/2020 for a treatment team meeting with Yamilka Chaparro, Karine Brooks and Sandra (certified social workers in health care), Mandy Barnes, activity therapy and Germania BLANC, discussed and reviewed the chart. Sleeping average 7 hours. He slept 8 hours previous night. His Adriana attended the treatment team meeting. Discussed the patients diagnoses, progress. He remains confused, withdrawn, walks bent over consistent with his Parkinsons. Review of Systems: Ambulation impaired. No CV, , pulmonary, eye, ENT system symptoms on review. Reliability poor. Mental Status Exam: The patient is oriented to himself and situation. Speech is low in rate and rhythm, low in volume. Often response is monosyllabic. Insight and judgement, recent and remote memory, attention and concentration, fund of knowledge is poor consistent with his diagnosis. No suicidal or homicidal ideation. Overall psychotic symptoms and agitation is much improved. Laboratory Data: Reviewed. 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 Anxiety disorder unspecified. Impulse control disorder unspecified. Parkinsons disease. Plan: No change from initial note. Possible discharge on 06/18. Assessment: Vital Signs/I&O: Vital Signs Date Time Temp Pulse Resp B/P (MAP) Pulse Ox O2 Delivery O2 Flow Rate FiO2 06/18/20 07:12 56 131/64 06/18/20 05:57 97.8 18 97 06/14/20 15:27 Room Air Current Medications: Meds: Current Medications Medications (Trade) Dose Ordered Sig/Rik Route PRN Reason Start Time Stop Time Status Last Admin Dose Admin Acetaminophen (Tylenol) 650 mg PRN Q6HRS PRN PO MILD PAIN / TEMP > 100.3'F 05/31/20 13:45 06/18/20 13:53 DC 06/11/20 14:41 Multi-Ingredient Ointment (Analgesic [place]) 1 king PRN QID PRN TP MUSCLE PAIN 05/31/20 13:45 06/18/20 13:53 DC 06/09/20 20:10 Al Hydroxide/Mg Hydroxide (Mylanta Plus Xs) 15 ml PRN AFTMEALHC PRN PO DYSPEPSIA 2/8/21 13:45 06/18/20 13:53 DC 06/01/20 15:35 Magnesium Hydroxide (Milk Of Magnesia) 2,400 mg PRN QHS PRN PO 1ST CHOICE CONSTIPATION 05/31/20 13:45 06/18/20 13:53 DC 06/12/20 08:35 Acetaminophen (Tylenol) 650 mg PRN Q6HRS PRN PO MILD PAIN / TEMP > 100.3'F 05/31/20 14:30 UNV Carbidopa/Levodopa (Sinemet 25/100) 2 tab TID PO 05/31/20 21:00 06/18/20 13:53 DC 06/18/20 12:37 Vitamin D (Vitamin D3) 50,000 unit WEEKLY PO 06/03/20 09:00 06/18/20 13:53 DC 06/17/20 08:20 Docusate Sodium (Colace) 100 mg BID PO 05/31/20 21:00 06/18/20 13:53 DC 06/18/20 07:30 Levetiracetam (Keppra) 500 mg BID PO 05/31/20 21:00 06/18/20 13:53 DC 06/18/20 07:29 Al Hydroxide/Mg Hydroxide (Mylanta Plus Xs) 15 ml PRN AFTMEALHC PRN PO DYSPEPSIA 05/31/20 14:30 UNV Magnesium Hydroxide (Milk Of Magnesia) 2,400 mg PRN QHS PRN PO CONSTIPATION 05/31/20 14:30 UNV Midodrine (Proamatine) 5 mg [id number] PO 05/31/20 18:00 06/18/20 13:53 DC 06/17/20 18:11 Pramipexole Dihydrochloride (miraPEX) 0.25 mg BID PO 05/31/20 21:00 06/18/20 13:53 DC 06/18/20 07:30 Non-Formulary Medication (Methyl Salicylate/ Menthol (Analgesic [place])) 1 king PRN QID PRN TP MUSCLE PAIN 05/31/20 14:30 UNV Olanzapine (ZyPREXA ZYDIS) 2.5 mg PRN Q2HR PRN PO PSYCHOSIS 05/31/20 14:30 06/18/20 13:53 DC 06/06/20 18:00 Quetiapine Fumarate (SEROquel) 100 mg QHS PO 05/31/20 21:00 06/18/20 13:53 DC 06/17/20 20:06 Trazodone HCl (Desyrel) 100 mg PRN QHS PRN PO INSOMNIA 05/31/20 14:45 06/18/20 13:53 DC 06/17/20 20:06 Quetiapine Fumarate (SEROquel) 25 mg TID PO 05/31/20 21:00 05/31/20 18:26 DC Quetiapine Fumarate (SEROquel) 25 mg 0900,1300,1700 PO 06/01/20 09:00 06/18/20 13:53 DC 06/18/20 12:37 Mirtazapine (Remeron) 7.5 mg QHS PO 06/01/20 21:00 06/05/20 16:31 DC 06/04/20 19:42 Sertraline HCl (Zoloft) 25 mg DAILY PO 06/03/20 09:00 06/05/20 16:31 DC 06/05/20 09:40 Mirtazapine (Remeron) 15 mg QHS PO 06/05/20 21:00 06/18/20 13:53 DC 06/17/20 20:06 Sertraline HCl (Zoloft) 50 mg DAILY PO 06/06/20 09:00 06/09/20 11:00 DC 06/09/20 09:57 Sertraline HCl (Zoloft) 75 mg DAILY PO 06/10/20 09:00 06/18/20 13:53 DC 06/18/20 07:29 Magnesium Citrate (Citroma) 296 ml 1X ONCE PO 06/11/20 19:30 06/11/20 19:51 DC 06/11/20 19:53 Magnesium Citrate (Citroma) 296 ml 1X ONCE PO 06/12/20 21:00 06/12/20 21:01 DC 06/12/20 19:45 Bisacodyl (Dulcolax Supp) 10 mg PRN DAILY PRN [place] 2ND CHOICE CONSTIPATION 06/12/20 19:15 06/18/20 13:53 DC 06/13/20 11:58 Magnesium Citrate (Citroma) 296 ml 1X ONCE PO 06/13/20 18:45 06/13/20 18:46 DC I have reviewed the current psychotropics carefully including drug interactions. Risk benefit ratio favors no change other than as noted in my dictated progress note. 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
== END 2020-06-18 13:27 | disposition home or self-care (01) | DRG 57 ==
LOC: GEROPSY 11:40
PROVIDERS: ADMIT Psychiatry & Neurology Psychiatry; ATTEND Psychiatry & Neurology Psychiatry
DX: G20 Parkinson's disease (principal); F01.51 Vascular dementia, unspecified severity, with behavioral disturbance; F02.81 Dementia in other diseases classified elsewhere, unspecified severity, with behavioral disturbance; F32.9 Major depressive disorder, single episode, unspecified; F41.9 Anxiety disorder, unspecified; F63.9 Impulse disorder, unspecified; G30.9 Alzheimer's disease, unspecified; G40.909 Epilepsy, unspecified, not intractable, without status epilepticus; K56.41 Fecal impaction; Z79.899 Other long term (current) drug therapy; Z91.83 Wandering in diseases classified elsewhere; Z95.0 Presence of cardiac pacemaker; Z87.01 Personal history of pneumonia (recurrent); Z86.16 Personal history of COVID-19
CPT/HCPCS: 36415; 74018; 80048; 80053; 81001; 82306; 83735; 85025; 87493; 93005; 97110; 97530; 97535